=== PATIENT | male | born 1940 | race Caucasian/White ===

== ENCOUNTER 2017-08-11 05:28 | Day surgery (SDC) | payer OTHER ==
[~2017-08-11] VITALS: Ht 180.3 cm; Wt 71.7 kg
--- NOTE | ~2017-08-11 | O ---
[facility] [place] [address] OPERATIVE REPORT Name: KARLENE MOSS Room #: 150-6 [facility]..#: [id number] Admission: 08/11/17 Attend Phys: Gilberto Gustafson MD Discharge: Date of : 40 Report #: [id number] THIS REPORT FOR: //name// CC: Soy Gustafson DATE OF SERVICE: 08/11/[address] Gilberto Gustafson and Dr. Soy Reyes at [facility]. PREOPERATIVE DIAGNOSIS: Left inguinal hernia. POSTOPERATIVE DIAGNOSES: Left inguinal hernia with a left cord lipoma. PROCEDURE: Left inguinal hernia repair with Prolene hernia system mesh and excision of left cord lipoma. SURGEON: Gilberto Gustafson M.D. ANESTHESIA: Local IV sedation. DESCRIPTION OF PROCEDURE: The patient was brought to the operating room and placed on operative table in the supine position. Sequential compression devices were in place for DVT prophylaxis. There was no indication for preoperative antibiotics. The patient underwent IV sedation, was prepped and draped in a sterile fashion. Skin and subcutaneous tissue were then infiltrated with 0.5% Marcaine and 1% Xylocaine in a 1:1 mixture. Left inguinal skin incision was then performed using a #10 scalpel blade. Hemostasis obtained using electrocautery as well as clamps and 2-0 chromic ties. Dissection was carried down through the subcutaneous tissue to the external oblique fascia, which was then incised with a knife and opened up with a Metzenbaum scissors. The ilioinguinal nerve was identified, dissected free and preserved. Cord was then elevated up and held in place with a [place]oy drain. Cremasteric muscle fibers were then split in the direction of their fibers using clamp and electrocautery. The cord lipoma was identified, dissected free, clamped, excised and tied with a 2-0 chromic tie and sent as specimen to pathology. There was a small indirect inguinal hernia sac that was identified, dissected free and reduced back through the internal ring. There was a moderate sized direct inguinal hernia defect. This was dissected free and incised and opened just above the level of the floor and reduced back into the preperitoneal space. An extended Prolene hernia system mesh was then inserted through the floor and the underlay patch was then deployed in the preperitoneal space. The floor was then tightened around the connector using running 2-0 Prolene two layer shouldice repair. The overlay patch was then deployed into the inguinal canal [address] [address] OPERATIVE REPORT Name: KARLENE MOSS Room #: 150-6 [facility]#: [id number] Admission: 08/11/17 Attend Phys: Gilberto Gustafson MD Discharge: Date of : 40 Report #: [id number] and secured at the pubic tubercle with the same running 2-0 Prolene suture. The mesh was then secured superiorly and at the connector using simple interrupted 2-0 Vicryl suture. The mesh was split, wrapped around the cord, secured to the inguinal ligament with simple interrupted 2-0 Vicryl suture. The cord and ilioinguinal nerve were then returned to the canal intact. The external oblique fascia was then closed using running 2-0 Vicryl suture. Mary Jo fascia was then reapproximated using 3 simple interrupted 2-0 chromic sutures and the skin then closed with a running 4-0 subcuticular Vicryl stitch. The wound was then dressed with Mastisol, 1/2-inch Steri-Strips cut in half, Telfa, 4 x 4 gauze, sponge and tape. The patient was then taken to the recovery room awake, alert and in good condition. Estimated blood loss was less than 10 mL and the patient tolerated the procedure well. All sponge, lap and instrument counts were correct x 2. <ELECTRONICALLY SIGNED> By: Gilberto Gustafson MD 08/11/17 1615 1454 1507 Gilberto Gustafson MD /nt
--- NOTE | ~2017-08-11 | S ---
[facility] [place] [address] SURGICAL PATH RPT PROCEDURE Name: KARLENE ADORNO Room #: [place] [facility] [place].R.#: [id number] Admission: 08/11/17 Date of : 40 Discharge: 08/11/17 Report #: [id number] Path Case #: [id number] PATHOLOGY REPORT COLLECTION DATE: 08/11/2017 RECEIVED DATE: 08/11/2017 SUBMITTING PHYS: Dr. Gilberto Gustafson OTHER PHYS: Dr. Soy Reyes SPECIMEN(S) RECEIVED: A.Left cord lipoma * * * * * * * * * * * * FINAL DIAGNOSIS: Mature adipose tissue, left cord lipoma, excision: - Compatible with a lipoma. (IUV:pit; 08/13/2017) PATHOLOGIST: Adriane Burnham M.D. REPORT ELECTRONICALLY SIGNED BY: Adriane Burnham M.D. DATE/TIME: 08/13/2017 13:17 * * * * * * * * * * * * GROSS PATHOLOGY: Received in formalin labeled "Karlene Adorno, left cord lipoma," is a segment of lobulated fibroadipose tissue measuring 6.2 x 1.6 x 0.9 cm in maximum dimensions. Sectioning reveals homogeneous, bright yellow cut surfaces. Abseiling Instructor tissue is submitted in cassette A1. (CAA; 08/12/2017) CLINICAL HISTORY: Left inguinal hernia INITIAL CPT CODE(S): A; 74133 Professional services performed by [facility] at [facility] [address], [place] [address] Technical services performed by [facility] at [address] [place] [address], [address], [place] [address]. [facility] [address] [place] [address] SURGICAL PATH RPT PROCEDURE Name: KARLENE ADORNO Room #: [place] [facility] [place]emio#: [id number] Admission: 08/11/17 Date of : 40 Discharge: 08/11/17 Report #: [id number] Path Case #: [id number] [address] PHONE: [phone] DIRECTOR: Arnold Chinchilla M.D. * * * END OF REPORT * * *
[~2017-08-11 05:28] MED LIST: ASPIR 8181 MG PO; CALCIUM + D SO1 EACH PO; FLOMAX0.4 MG PO; MULTI VITAMIN1 EACH PO; OMEPRAZOLE40 MG PO; OXYBUTYNIN 5 MG5 M2 PO; PROSCAR 5MG TABL5 MG PO; TYLENOL325 MG PO; VENTOLIN HFA 1818 GM INH; VITAMIN B12 PO; VITAMIN D32000 UNIT PO
[2017-08-11 11:50] VITALS: BP 140/73
[2017-08-11] MEDS ORDERED: PERCOCET PO (14:58)
[2017-08-11 15:05] VITALS: BP 140/73
== END 2017-08-11 15:30 | disposition home or self-care (01) ==
LOC: TBA 05:28 → OR 05:28
DX: K40.90 Unilateral inguinal hernia, without obstruction or gangrene, not specified as recurrent (principal); D17.6 Benign lipomatous neoplasm of spermatic cord; J43.9 Emphysema, unspecified; K21.9 Gastro-esophageal reflux disease without esophagitis; F17.210 Nicotine dependence, cigarettes, uncomplicated; Z88.0 Allergy status to penicillin; Z88.8 Allergy status to other drugs, medicaments and biological substances; Z79.899 Other long term (current) drug therapy; Z79.82 Long term (current) use of aspirin; Z90.49 Acquired absence of other specified parts of digestive tract; Z98.890 Other specified postprocedural states; Z79.891 Long term (current) use of opiate analgesic
CPT/HCPCS: 50010; 50101; 54111; 56524; 56525; 56526; 56528; 62110; 62850; 70005

== ENCOUNTER 2017-08-15 07:26 | Emergency (ER) | payer OTHER ==
[~2017-08-15] VITALS: Ht 180.3 cm; Wt 71.7 kg
[~2017-08-15 07:26] MED LIST changes: +PERCOCET PO
[2017-08-15 08:05] LABS: ABSOLUTE NEUTROPHILS 8.7 thou/uL (1.4-8.2); BASOPHILS 0.6 % (0.0-2.0); HEMATOCRIT 42.7 % (42.0-52.0); HEMOGLOBIN 14.4 gm/dL (14.0-18.0); LYMPHOCYTES 16.5 % (24.0-44.0); MCH 30.6 pg (26.0-34.0); MCHC 33.8 g/dL (28.0-37.0); MCV 90.6 fL (80.0-100.0); MONOCYTES 6.3 % (1.0-8.0); PLATELET COUNT 182 thou/uL (150-400); POLYS 72.6 % (36.0-66.0); RBC 4.72 mil/uL (4.50-6.00); RDW 14.2 % (10.5-14.5)
[2017-08-15 08:13] LABS: CALCIUM 9.3 mg/dL (8.5-10.1); CREATININE 1.2 mg/dL (0.7-1.3); POTASSIUM 3.7 mmol/L (3.5-5.1)
[2017-08-15 08:19] LABS: ALBUMIN 3.4 g/dL (3.4-5.0); DIRECT BILIRUBIN 0.2 mg/dL (<0.1-0.3); TOTAL BILIRUBIN 0.8 mg/dL (<0.1-1.0)
[2017-08-15] MEDS ORDERED: NORCO 5-325 TA1 EACH PO (09:36)
== END 2017-08-15 10:00 | disposition home or self-care (01) ==
LOC: ER 07:26
PROVIDERS: Emergency Medicine
DX: G89.18 Other acute postprocedural pain (principal); N50.812 Left testicular pain; J44.9 Chronic obstructive pulmonary disease, unspecified; K21.9 Gastro-esophageal reflux disease without esophagitis; N40.0 Benign prostatic hyperplasia without lower urinary tract symptoms; Z90.49 Acquired absence of other specified parts of digestive tract; Z98.890 Other specified postprocedural states; Z88.0 Allergy status to penicillin; Z88.5 Allergy status to narcotic agent

== ENCOUNTER 2019-04-02 11:02 | Inpatient (IN) | payer OTHER, MEDICARE ==
[~2019-04-02] VITALS: Ht 180.3 cm; Wt 64.0 kg
[~2019-04-02 11:02] MED LIST changes: +NORCO 5-325 TA1 EACH PO; -OMEPRAZOLE40 MG PO
[2019-04-02 11:03] VITALS: BP 143/82
[2019-04-02 11:52] LABS: ABSOLUTE NEUTROPHILS 5.9 thou/uL (1.4-8.2); BASOPHILS 0.7 % (0.0-2.0); EOSINOPHILS 14.8 % (0.0-3.0); HEMOGLOBIN 14.9 gm/dL (14.0-18.0); LYMPHOCYTES 22.2 % (24.0-44.0); MCH 32.3 pg (26.0-34.0); MCV 95.2 fL (80.0-100.0); MONOCYTES 4.3 % (1.0-8.0); PLATELET COUNT 197 thou/uL (150-400); RBC 4.62 mil/uL (4.50-6.00); RDW 13.9 % (10.5-14.5); WBC 10.1 thou/uL (4.0-11.0)
[2019-04-02 11:54] LABS: ANION GAP 12 mmol/L (7-16); BUN 22 mg/dL (7-18); CALCIUM 9.5 mg/dL (8.5-10.1); CHLORIDE 104 mmol/L (98-107); CO2 25 mmol/L (21-32); GLUCOSE 132 mg/dL (74-106); POTASSIUM 3.8 mmol/L (3.5-5.1); SODIUM 141 mmol/L (136-145)
[2019-04-02 12:04] LABS: ALBUMIN 4.3 g/dL (3.4-5.0); SGOT 17 U/L (15-37); SGPT 19 U/L (30-65); TOTAL BILIRUBIN 0.6 mg/dL (<0.1-1.0); TROPONIN-I <0.06 ng/mL (<0.06)
--- NOTE | 2019-04-02 14:29 | NUR ---
PTS FAMILY REQUEST TYLENOL THEY ASKED FOR HOURS AGO. PTS FAMILY REQUEST SOFT FOOD FOR HIM TO EAT
[2019-04-02 15:39] VITALS: BP 144/68
[2019-04-02 16:02] VITALS: BP 136/68
[2019-04-02 16:23] VITALS: BP 124/62
--- NOTE | 2019-04-02 18:21 | NUR ---
pt adnitted from ER for SOB, pt is A&OX3, pt is on o2 2L/MIN/NC, PT's vs and o2sat are stable, pt's family stay at pt's bedside, pt denies pain and sob at this time.
[2019-04-02 19:58] VITALS: BP 116/55
--- NOTE | 2019-04-02 22:49 | NUR ---
PT RESTING IN BED VISITING WITH FAMILY UPON ARRIVAL TO SHIFT. PT 02 PER NC 2L, LUNGS WHEEZES. PT REQUESTED PRN TYLENOL FOR NECK DISCOMFORT, HERNIATED DISC AND SLEEPING PILL, BOTH PROVIDED. PT ALTERNATING ICE AND KPAD TO HIS NECK, CONTINUED FROM DAY SHIFT. PT VERBALIZED UNDERSTANDING TO CALL FOR ASSIST WITH AMBULATION. PT REQUESTED PRN RT TREATMENTS AND ORDER OBTAINED AND RT UPDATED. LOVENOX, DECLINED SCDS. CHEERFUL, SMILING.
[2019-04-02 23:42] VITALS: BP 113/67
[2019-04-03 04:40] VITALS: BP 138/80
--- NOTE | 2019-04-03 05:11 | NUR ---
PT REPORTED HE HAS BEEN AWAKE ALL NIGHT EVEN AFTER TAKING SLEEPING PILL.
[2019-04-03 07:48] VITALS: BP 121/86
--- NOTE | 2019-04-03 08:11 | EKG ---
[address] [address] ELECTROCARDIOGRAM REPORT Name: ISAKARLENE Alvarez Room #: 353-P ADM IN M.R.#: [id number] Admission: 04/02/19 Attend Phys: Triston Fine Discharge: Date of : 40 Report #: [id number] THIS REPORT FOR: //name// [facility] ED Test Date: 2019-04-02 Test Time: 11:03:34 Pat Name: KARLENE MOSS Department: Room: 353 P Gender: M Vitamin Manager: SAÚL : 1940 Requested By: Triston Fine Order Number: [id number] MD: Jesus Michaud Measurements Intervals [place] Rate: 102 P: 71 LA: 127 QRS: 55 QRSD: 92 T: 87 QT: 353 QTc: 460 Interpretive Statements Sinus tachycardia Ventricular premature complex Aberrant conduction of SV complex(es) Nonspecific repol abnormality, diffuse leads Baseline wander in lead(s) V1,V3 No previous ECG available for comparison Electronically Signed On 04-03-2019 8:11:42 AUTOMOBILE OR TRUCK RENTAL DISPATCHER by Jesus Michaud [email or web address] <ELECTRONICALLY SIGNED> By: Jesus Michaud MD 04/03/19 0811 1103 1103 Jesus Michaud MD /EPI
[2019-04-03] MEDS ORDERED: OMEPRAZOLE40 MG PO (09:30)
--- NOTE | 2019-04-03 10:05 | NUR ---
assessment: CM REVIEWED CHART AND MET WITH PATIENT AT THE BEDSIDE. PT IS ALERT AND ORIENTED X4. PT WAS ADMITTED WITH COPD. PT REPORTS HE LIVES IN A HOUSE WITH HIS . PT REPORTS HE HAS NO STEPS TO ENTER AND HAS A RAMP AND NO STEPS ONCE INSIDE. PT REPORTS THAT HE AMBULATES INDEPENDENTLY AND IS INDEPENDENT WITH ADLS. PT REPORTS HAVING A SHOWER CHAIR. PT STATES THAT HE HAS NOT HAD HH IN THE PAST NOR BEEN TO A SNF. PT STATES THAT HE DOES NOT WEAR OXYGEN AT HOME BUT IS CURRENTLY ON OXYGEN HERE. CM DISCUSSED ROLE. PT DOES NOT ANTICIPATE HAVING ANY NEEDS AT DISCHARGE. PT/OT EVALS ARE CURRENTLY PENDING. CM WILL CONTINUE TO FOLLOW TO ASSIST NEEDED.
--- NOTE | 2019-04-03 11:30 | NUR ---
I have reviewed the documentation by ELMIRA CANELA from 04/03/19 to 04/03/19 and I concur with it. CECI RANGEL
[2019-04-03 16:05] VITALS: BP 133/71
--- NOTE | 2019-04-03 18:44 | NUR ---
PTis A&OX3, pt is off o2 today, pt's vs are stable, pt is continuing iv ABX, pt can get up t walk in hallway, pt denies SOB BY THIS TIME.
[2019-04-03 19:48] VITALS: BP 146/68
[2019-04-04 04:32] VITALS: BP 127/60
--- NOTE | 2019-04-04 05:53 | NUR ---
PT COMPLAINED THAT HE DID NOT SLEEP PREVIOUS NIGHT. PRN AMBIEN GIVEN AND PT HAS RESTED COMFORTABLY ALL EVENING. VSS, AND TELEMETRY SHOWS SR/ST WITH BBB PRESENT VARIOUS TIMES. RESTARTED PT PO GERD MEDICATION. PT UP AD AMANDO, BUT IS VERY IMPULSIVE WITH HIS ACTIONS AND MOVEMENTS. PT HAS NO OTHER COMPLAINTS. HOURLY ROUNDING.
[2019-04-04 07:48] VITALS: BP 94/69
[2019-04-04 10:01] LABS: HEMATOCRIT 38.1 % (42.0-52.0); MCH 31.4 pg (26.0-34.0); MCV 95.2 fL (80.0-100.0); RDW 13.9 % (10.5-14.5); WBC 18.5 thou/uL (4.0-11.0)
[2019-04-04 10:06] LABS: HEMOGLOBIN 12.6 gm/dL (14.0-18.0)
[2019-04-04 10:28] VITALS: BP 149/69
--- NOTE | 2019-04-04 12:45 | NUR ---
on-going assessment: CM REVIEWED CHART AND SPOKE WITH ATTENDING. PT IS HYPOTENSIVE TODAY AND NOT STABLE FOR DISCHARGE. CM WILL CONTINUE TO FOLLOW PLANS ARE FOR PATIENT TO RETURN HOME ONCE MEDICALLY STABLE.
[2019-04-04 13:06] VITALS: BP 135/63
[2019-04-04 15:37] VITALS: BP 118/65
--- NOTE | 2019-04-04 16:14 | NUR ---
pt is A&OX3, but pt fell weakness and dizziness at this morning , new order NS 500ML IV bolus starts at 1017am, and pt stays at bed, after then , pt fell better, pt is on room air, pt's vs and o2sat are stable, pt denies SOB and dizziness at this time.
[2019-04-04 19:36] VITALS: BP 146/70
[2019-04-05 03:53] VITALS: BP 150/85
--- NOTE | 2019-04-05 07:23 | NUR ---
ASSUMED CARE AT 1900, ASSESSMENT COMPLETED. PT REPORTS IMPROVED BREATHING, ABLE TO WALK AROUND HIS ROOM WITH MINIMAL SOB, BUT STATES HE STILL GETS TIRED WITH EXTENDED ACTIVITY. LUNGS COARSE BUT CLEAR, SATTING WELL ON RA. REPORTS MODERATE, CHRONIC NECK PAIN; STATED THE LIDOCAINE PATCH DURING THE DAY HELPED; GAVE TYLENOL TWICE OVERNIGHT. PT SR 80-90 OVERNIGHT, BUT DID BECOME TACHY INTO THE 140'S WHILE MOVING AROUND ROOM TIDYING UP; AFTER HAVING PT SIT BACK DOWN HE RETURNED TO A REGULAR RATE. NO C/O WEAKNESS, DIZZINESS, OR HYPOTENSION OVERNIGHT. NO OTHER CONCERNS, SHIFT REPORT GIVEN AT 0700.
[2019-04-05 07:54] VITALS: BP 144/60
--- NOTE | 2019-04-05 08:33 | EKG ---
[address] [address] ELECTROCARDIOGRAM REPORT Name: KARLENE MOSS Room #: 353- ADM IN M.R.#: [id number] Admission: 04/02/19 Attend Phys: Triston Fine Discharge: Date of : 40 Report #: [id number] THIS REPORT FOR: //name// [facility] Test Date: 2019-04-04 Test Time: 09:58:51 Pat Name: KARLENE MOSS Department: Room: 353 Gender: M Stopper Grinder: CHELSY : 1940 Requested By: Triston Fine Order Number: [id number] MD: Jesus Michaud Measurements Intervals [place] Rate: 86 P: 62 NV: 125 QRS: -15 QRSD: 101 T: 50 QT: 397 QTc: 475 Interpretive Statements Sinus rhythm Compared to ECG 04/02/2019 11:03:34 Sinus tachycardia no longer present Early repolarization no longer present Electronically Signed On 04-05-2019 8:33:03 ATMOSPHERIC TECHNICIAN by Jesus Michaud [email or web address] <ELECTRONICALLY SIGNED> By: Jesus Michaud MD 04/05/19 0833 7 Jesus Michaud MD /RACHELE
[2019-04-05] MEDS ORDERED: LEVAQUIN 500 M500 M2 PO (09:38)
[2019-04-05] MEDS ORDERED: RAYOS5 MG PO (09:43)
--- NOTE | 2019-04-05 13:48 | NUR ---
pt is A&OX3, pt's coughing and sob have improved, pt denies dizziness at this time, pt gets up to walk at her room, pt's vs and o2sat are stable, RN has received order , pt will D/C to home soon, pt 's care plan goals have meeting at this time.
[2019-04-05 14:23] VITALS: BP 144/60
--- NOTE | 2019-04-05 16:12 | NUR ---
pt was d/c to home about 1430pm ,RN has giving D/C teaching, pt understands well,pt's diamond picker pt to home.
== END 2019-04-05 14:38 | disposition home or self-care (01) | DRG 871 ==
LOC: ER 11:02 → 3W 14:01 → EROBS 14:01 → 3W 15:58 → ENTRNSPT 04-05 14:28 → EDTRNSPTSTS 04-05 14:31 → 3W 04-05 14:38
PROVIDERS: Emergency Medicine; ADMIT Hospitalist
DX: A41.9 Sepsis, unspecified organism (principal); J18.9 Pneumonia, unspecified organism; J96.00 Acute respiratory failure, unspecified whether with hypoxia or hypercapnia; J44.1 Chronic obstructive pulmonary disease with (acute) exacerbation; J44.0 Chronic obstructive pulmonary disease with (acute) lower respiratory infection; K21.9 Gastro-esophageal reflux disease without esophagitis; I10 Essential (primary) hypertension; N40.0 Benign prostatic hyperplasia without lower urinary tract symptoms; E53.8 Deficiency of other specified B group vitamins; M54.5 Low back pain; I95.9 Hypotension, unspecified; Z88.5 Allergy status to narcotic agent; Z88.0 Allergy status to penicillin; Z90.49 Acquired absence of other specified parts of digestive tract; Z79.51 Long term (current) use of inhaled steroids; Z79.82 Long term (current) use of aspirin; Z79.899 Other long term (current) drug therapy
CPT/HCPCS: 10879

== ENCOUNTER 2019-04-22 11:54 | Emergency (ER) | payer OTHER, MEDICARE ==
[~2019-04-22] VITALS: Ht 180.3 cm; Wt 70.8 kg
[~2019-04-22 11:54] MED LIST changes: +LEVAQUIN 500 M500 M2 PO; +OMEPRAZOLE40 MG PO; +RAYOS5 MG PO
[2019-04-22 13:31] LABS: ABSOLUTE NEUTROPHILS 4.4 thou/uL (1.4-8.2); BASOPHILS 0.9 % (0.0-2.0); EOSINOPHILS 15.2 % (0.0-3.0); HEMATOCRIT 39.7 % (42.0-52.0); LYMPHOCYTES 17.5 % (24.0-44.0); MCHC 32.9 g/dL (28.0-37.0); MCV 97.3 fL (80.0-100.0); MONOCYTES 5.3 % (1.0-8.0); PLATELET COUNT 169 thou/uL (150-400); POLYS 61.1 % (36.0-66.0); RBC 4.08 mil/uL (4.50-6.00); RDW 14.3 % (10.5-14.5); WBC 7.2 thou/uL (4.0-11.0)
[2019-04-22 14:15] LABS: ANION GAP 11 mmol/L (7-16); BUN 19 mg/dL (7-18); CALCIUM 8.6 mg/dL (8.5-10.1); CHLORIDE 101 mmol/L (98-107); CO2 23 mmol/L (21-32); GLUCOSE 123 mg/dL (74-106); POTASSIUM 4.4 mmol/L (3.5-5.1); SODIUM 135 mmol/L (136-145)
[2019-04-22 14:26] LABS: ALBUMIN 3.5 g/dL (3.4-5.0); SGOT 18 U/L (15-37); SGPT 31 U/L (30-65); TOTAL BILIRUBIN 0.5 mg/dL (<0.1-1.0); TOTAL PROTEIN 6.5 g/dL (6.4-8.2); TROPONIN-I <0.06 ng/mL (<0.06)
[2019-04-22] MEDS ORDERED: AZITHROMYC200 MG/52 PO (14:37)
[2019-04-22] MEDS ORDERED: PREDNISONE 20 M20 MG PO (14:37)
[2019-04-22 15:03] VITALS: BP 102/61
--- NOTE | 2019-04-24 16:05 | EKG ---
[address] [address] ELECTROCARDIOGRAM REPORT Name: ISAKARLENE Alvarez [id number] Admission: 04/22/19 Attend Phys: Discharge: 04/22/19 Date of : 40 Report #: [id number] THIS REPORT FOR: //name// [facility] ED Test Date: 2019-04-22 Test Time: 12:02:26 Pat Name: KARLENE MOSS Department: Room: Gender: Asphalt Paving Foreman: [facility] : 1940 Requested By: Juvencio Vazquez Order Number: [id number] MD: Jesus Michaud Measurements Intervals [place] Rate: 108 P: 62 SC: 121 QRS: 0 QRSD: 96 T: 77 QT: 341 QTc: 457 Interpretive Statements Sinus tachycardia Probable left atrial enlargement Abnormal R-wave progression, early transition Abnormal inferior Q waves Borderline ST depression, anterolateral leads Compared to ECG 04/04/2019 09:58:51 Electronically Signed On 04-24-2019 16:05:05 GOLF COURSE LABORER by Jesus Michaud [email or web address] <ELECTRONICALLY SIGNED> By: Jesus Michaud MD 04/24/19 1605 120 120 Jesus Michaud MD /EPI
== END 2019-04-22 15:09 | disposition home or self-care (01) ==
LOC: ER 11:54
PROVIDERS: Emergency Medicine
DX: J44.1 Chronic obstructive pulmonary disease with (acute) exacerbation (principal); K21.9 Gastro-esophageal reflux disease without esophagitis; F17.210 Nicotine dependence, cigarettes, uncomplicated; Z90.49 Acquired absence of other specified parts of digestive tract; Z98.890 Other specified postprocedural states; Z88.0 Allergy status to penicillin; Z88.5 Allergy status to narcotic agent

== ENCOUNTER 2019-05-08 02:22 | Inpatient (IN) | payer OTHER ==
[~2019-05-08] VITALS: Ht 172.7 cm; Wt 66.7 kg
[~2019-05-08 02:22] MED LIST changes: +AZITHROMYC200 MG/52 PO; +PREDNISONE 20 M20 MG PO
[2019-05-08 02:54] LABS: ABSOLUTE NEUTROPHILS 7.1 thou/uL (1.4-8.2); BASOPHILS 0.6 % (0.0-2.0); EOSINOPHILS 7.9 % (0.0-3.0); HEMATOCRIT 44.2 % (42.0-52.0); HEMOGLOBIN 14.8 gm/dL (14.0-18.0); LYMPHOCYTES 21.6 % (24.0-44.0); MCHC 33.4 g/dL (28.0-37.0); MCV 95.9 fL (80.0-100.0); MONOCYTES 5.9 % (1.0-8.0); PLATELET COUNT 184 thou/uL (150-400); RBC 4.61 mil/uL (4.50-6.00); RDW 13.6 % (10.5-14.5); WBC 11.2 thou/uL (4.0-11.0)
[2019-05-08 02:58] LABS: ANION GAP 8 mmol/L (7-16); BUN 21 mg/dL (7-18); CALCIUM 9.2 mg/dL (8.5-10.1); CHLORIDE 100 mmol/L (98-107); CO2 26 mmol/L (21-32); GLUCOSE 128 mg/dL (74-106); POTASSIUM 3.8 mmol/L (3.5-5.1); SODIUM 134 mmol/L (136-145)
[2019-05-08 03:08] LABS: MAGNESIUM 1.8 mg/dL (1.8-2.4); SGOT 13 U/L (15-37); SGPT 27 U/L (30-65); TOTAL BILIRUBIN 0.8 mg/dL (<0.1-1.0); TOTAL PROTEIN 7.6 g/dL (6.4-8.2); TROPONIN-I <0.06 ng/mL (<0.06)
[2019-05-08 03:14] LABS: D-DIMER 0.3 ug/mLFEU (0.19-0.50)
[2019-05-08 03:17] LABS: BE(vivo) -2.6 mmol/L (-2 to +3); HCO3 23.7 mmol/L (22.0-26.0); PCO2 VENOUS 46.7 mmHg (41.0-51.0); PO2 VENOUS 30.6 mmHg (35.0-45.0)
[2019-05-08 03:26] LABS: APTT 24.1 Seconds (24.5-32.8); PROTIME 10.1 Seconds (9.3-11.4)
[2019-05-08 08:54] VITALS: BP 129/78
--- NOTE | 2019-05-08 10:22 | EKG ---
[place] [address] [facility] [employer] [place] [address] ELECTROCARDIOGRAM REPORT Name: CYNDY MOSSANDRES Alvarez Room #: 170-1 ADM IN M.R.#: [id number] Admission: 05/08/19 Attend Phys: Gabriel Moralez MD Discharge: Date of : 40 Report #: [id number] THIS REPORT FOR: //name// [facility] ED Test Date: 2019-05-08 Test Time: 02:28:35 Pat Name: KARLENE MOSS Department: Room: 170 Gender: M Paid Search Marketing Strategist: CORY : 1940 Requested By: Darrell Kohler Order Number: [id number] MD: Juan Andrews Measurements Intervals [place] Rate: 114 P: 78 [place]: 130 QRS: -27 QRSD: 94 T: 96 QT: 339 QTc: 467 Interpretive Statements Sinus tachycardia Biatrial enlargement RSR' in V1 or V2, right VCD Possible inferior infarct, old Nonspecific ST segment abnormality Compared to ECG 04/22/2019 12:02:26 no significant change was found Electronically Signed On 05-08-2019 10:22:19 BIOPHARMACEUTICAL REP by Juan Andrews [email or web address] <ELECTRONICALLY SIGNED> By: Juan Andrews MD, [facility] 05/08/19 1022 Juan Andrews MD, [facility] /EPI
[2019-05-08 10:35] VITALS: BP 131/67
--- NOTE | 2019-05-08 11:04 | NUR ---
THE PT'S AVERY WAS CALLED AND ADVISED THAT THE PT WAS MOVED TO AN INPATIENT BED IN ROOM 444. AVERY EXPRESSED THANKS.
--- NOTE | 2019-05-08 12:07 | NUR ---
PT ADMITTED AT 1105. PT A&Ox4. ADMISSION COMPLEETE. PT ON 3L. PT IN ROOM RESTING. FLUIDS INFUSING. IV DC'D FROM AMBULANCE ON R. HAND. SCD PLACED. FALL PRECAUTIONS IN PLACE. BED IN LOW POSITION, BED ALARM IN PLACE. BED LOCKED
[2019-05-08 15:40] VITALS: BP 131/69
--- NOTE | 2019-05-08 16:51 | EKG ---
[address] [place] [address] ELECTROCARDIOGRAM REPORT Name: ISAKARLENE Room #: 444- ADM IN M.R.#: [id number] Admission: 05/08/19 Attend Phys: Gabriel Moralez MD Discharge: Date of : 40 Report #: [id number] THIS REPORT FOR: //name// [facility] Test Date: 2019-05-08 Test Time: 16:17:35 Pat Name: KARLENE MOSS Department: Room: 444 Gender: M Molecular Biology Professor: CRIS MCCONNELL : 1940 Requested By: Gabriel Moralez Order Number: [id number] MD: Juan Andrews Measurements Intervals [place] Rate: 113 P: 71 DC: 128 QRS: -34 QRSD: 100 T: 87 QT: 344 QTc: 472 Interpretive Statements Sinus tachycardia Inferoposterior infarct, old Baseline wander in lead(s) V6 Compared to ECG 05/08/2019 02:28:35 No significant change was found Electronically Signed On 05-08-2019 16:51:02 VAN DRIVER HELPER by Juan Andrews [email or web address] <ELECTRONICALLY SIGNED> By: Juan Andrews MD, [facility] 05/08/19 1651 1617 1617 Juan Andrews MD, [facility] /EPI
[2019-05-08 19:31] VITALS: BP 152/72
--- NOTE | 2019-05-08 23:34 | NUR ---
ASSUMED PATIENT CARE AT SHIFT CHANGE. ASSESSMENT CHARTED. MEDICATIONS GIVEN PER JUL. PATIENT VOICED PAIN AT 7/10 PRN TYLENOL GIVEN. UPON REASSESSMENT PAIN WAS AT 8/10, FENTANYL GIVEN WITH ASSIST FROM JESSICA. PATIENT IS ON 3L, O2 SATURATION WNL BUT WHEEZES ARE HEARD ON UPPER LOBES. PATIENT IS A&O AND PLEASANT. PATIENT USES URINAL. PATIENT IS SINUS TACHY. HEART RATE INCREASES WITH AMBULATION AND TRANSFER. NO OTHER NEEDS VOICED. PATIENT TO TRANSFER TO [facility] FOR TELEMETRY MONITORING. WILL CONITINUE TO MONITOR UNTIL TRANSFER
[2019-05-09 00:10] VITALS: BP 142/86
[2019-05-09 04:10] VITALS: BP 136/79
--- NOTE | 2019-05-09 06:36 | NUR ---
Transferred from around 2300. O2 at 3L/NC with O2 sat greater than 90% . Pt. gets very short of breath with minimal exertion. Denies any pain since arrival on the floor. SR-ST per tele. SCD's in place. Voiding per urinal. He stated he slept good for 5 hours. Will continue to monitor.
[2019-05-09 07:07] LABS: HEMATOCRIT 39.4 % (42.0-52.0); HEMOGLOBIN 12.9 gm/dL (14.0-18.0); MCH 31.7 pg (26.0-34.0); MCHC 32.6 g/dL (28.0-37.0); RBC 4.06 mil/uL (4.50-6.00); RDW 13.6 % (10.5-14.5)
[2019-05-09 07:17] LABS: CALCIUM 9.1 mg/dL (8.5-10.1); POTASSIUM 4.4 mmol/L (3.5-5.1)
[2019-05-09 07:32] VITALS: BP 126/70
[2019-05-09 15:21] VITALS: BP 126/70
--- NOTE | 2019-05-09 16:02 | NUR ---
INITIAL ASSESSMENT: SW reviewed chart and spoke with nursing and attending physician. Pt was admitted from home due to COPD/Hypoxia. Pt is on IV steroids. PT/OT ordered to evaluate pt for discharge needs. SW met with pt at bedside. Introduced role of SW. Pt is alert/orientated x 4. Pt reports he lives at home with his . Prior to admission, pt was independent with ADLs. Pt has a cane and walker at home if needed. No steps to navigate. Pt was not on O2 prior to admission. No hx of services or post-acute placement. Pt's PCP is Dr. Shelley Kohler. Plan is for pt to discharge home when medically stable.
[2019-05-09 16:45] VITALS: BP 150/66
[2019-05-09 19:22] VITALS: BP 140/73
[2019-05-10 03:27] VITALS: BP 134/60
--- NOTE | 2019-05-10 03:45 | NUR ---
Pt. slept fair during the night. RT titrated O2 off after shift change. Tolerating room air well with O2 sat in the low 90's. No respiratory distress. Mild neck pain which did not require pain med. Voiding per urinal. Making progress towards care plan goals.
[2019-05-10 04:40] VITALS: BP 160/86
[2019-05-10 07:27] VITALS: BP 140/62
--- NOTE | 2019-05-10 16:12 | NUR ---
SW reviewed chart and spoke with nursing and attending physician. Pt is progressing towards goals for discharge. Pt on IV steroids. Plan is for pt to return home when medically stable. AWILDA is following to assist as needed with discharge planning.
[2019-05-10 16:40] VITALS: BP 129/69
--- NOTE | 2019-05-10 16:57 | NUR ---
ASSUMED CARE OF PT AT 0700. PT AOX4 IN NO ACUTE DISTRESS. REMAINS TACHYCARDIC - HR 100-120's. PAIN CONTROLLED WITH TYLENOL. ANTICIPATE D/C WHEN HR MORE STABLE. NOW ON ROOM AIR.
[2019-05-10 19:32] VITALS: BP 134/73
--- NOTE | 2019-05-11 00:05 | NUR ---
PATIENT ASSESSED AND IS ALERT X 4. SKIN WARM AND DRY. RESP EVEN AND UNLABORED. ABDOMEN SOFT WITH GOOD BS. UP STAND-BY ASSIST TO BATHROOM. HAS A NAGGING COUGH NOTED. NO EDEMA NOTED TO LOWER EXTREMITIES. ON ROOM AIR. HAS CHRONIC AGUSTÍN IN NECK TYLENOL GIVEN AT 2106. SABOUT 2046 CO MPLAINED OF INDIGESTION. "IM BEEN OFF OF MY STOMACH MEDIATION FOR A FEW DAYS AND THIS IS ALWAYS HAPPENS" ZOFRAN GIVEN AND 7-UP. AFTER ABOUT 1 HOUR THE PAIN RESOLVED. PAIN WAS MIDSTERNAL. SKIN WAS WARM AND DRY. NO TELE CHANGES DURING THIS COMPLAINT. TELE- SHOWS ST. HR 120. LUNGS HAD SOME WHEEZING NOTED ON ASSESSMENT. CONTINUE TO OBSERVE FOR CHANGES. NO COMPLAINTS STATED NOW AT THIS TIME.
[2019-05-11 03:19] VITALS: BP 158/89
--- NOTE | 2019-05-11 04:05 | NUR ---
PATIENT REMAINS UNABLE TO HAVE BM. MIRALAX GIVEN ORDERED. NO FURTHER INDIGESTION STATED. IV SITE HEALTHY. CONT PLAN OF CARE. NECK PAIN RATED ABOUT A 5. PAIN MED GIVEN.
[2019-05-11 05:55] LABS: CALCIUM 8.8 mg/dL (8.5-10.1); CREATININE 0.9 mg/dL (0.7-1.3); POTASSIUM 4.4 mmol/L (3.5-5.1)
--- NOTE | 2019-05-11 06:16 | NUR ---
Patient still having touble voidimng has been voiding in urinal all night. say" It getting worst. It moore". has voided 700 cc all night.
--- NOTE | 2019-05-11 06:37 | NUR ---
Patient voids in urinal. Flomax requested early. Complaining of his penis burning.hr up in the 130-140 no chest pain. Just anxious because he don't think he voiding enough. Had 100 cc at 0600. hr comoing down now. Resting. hr now is 120 and 130's. will monitor.
--- NOTE | 2019-05-11 06:48 | NUR ---
Fentanyl given for penis pain. Still very apprehensive about not being able to void. Has voideds 850 this shift. cont to monitor
[2019-05-11 07:45] VITALS: BP 176/94
[2019-05-11 10:02] LABS: URINE BILIRUBIN NEGATIVE (Negative); URINE BLOOD 3+ (Negative); URINE CLARITY CLEAR; URINE COLOR YELLOW; URINE GLUCOSE-RANDOM* NEGATIVE (Negative); URINE KETONES NEGATIVE (Negative); URINE LEUKOCYTES NEGATIVE (Negative); URINE NITRITE NEGATIVE (Negative); URINE PROTEIN (DIPSTICK) NEGATIVE (Negative); URINE SPECIFIC GRAVITY 1.015 (1.005-1.035); URINE UROBILINOGEN 0.2 E.U./dl (0.2-1.0)
[2019-05-11 10:59] LABS: CASTS None Seen /LPF (None Seen); CRYSTALS None Seen /LPF (None Seen); SQUAMOUS None Seen /LPF (0-3); URINE RBC >20 Many /HPF (0-2)
[2019-05-11 11:00] LABS: BACTERIA 1-9 Few /HPF (None Seen); URINE WBC 0-5 Rare /HPF (0-5)
[2019-05-11 12:07] LABS: CALCIUM 8.9 mg/dL (8.5-10.1); POTASSIUM 4.4 mmol/L (3.5-5.1)
--- NOTE | 2019-05-11 15:01 | NUR ---
SW reviewed chart and spoke with nursing and attending physician. Pt is slowly progressing towards goals for discharge. Pt remains on IV steroids and IV abx. Pt is on continuous O2, and was not on O2 prior to admission. SW is following to assist as needed with discharge planning.
[2019-05-11 16:07] LABS: ABSOLUTE NEUTROPHILS 15.4 thou/uL (1.4-8.2); BASOPHILS 0.1 % (0.0-2.0); HEMATOCRIT 37.5 % (42.0-52.0); HEMOGLOBIN 12.3 gm/dL (14.0-18.0); LYMPHOCYTES 4.4 % (24.0-44.0); MCH 31.8 pg (26.0-34.0); MCHC 32.9 g/dL (28.0-37.0); MCV 96.8 fL (80.0-100.0); MONOCYTES 5.1 % (1.0-8.0); PLATELET COUNT 163 thou/uL (150-400); POLYS 90.4 % (36.0-66.0); RBC 3.88 mil/uL (4.50-6.00); RDW 13.7 % (10.5-14.5)
--- NOTE | 2019-05-11 16:17 | NUR ---
Assumed care approx. 0700 this AM. Upon arrival of shift, pt started complaining of severe bladder pain/fullness and retention. Dr. Moralez notified of problems. Orders to bladder scan and report amount; greater than 1L scanned. Dr. Moralez notified and orders were given to place mirza catheter. After mirza catheter was placed, approx. 1L of urine was obtained immediately. UA complete per orders. Pt had immediate relief of pressure and pain post mirza insertion. Orders given to titrate patient off of nasal cannula with goal O2 sat of >89%; Jovanny from RT notified of plan. Tylenol and hydrocodone given for continuous neck pain. Pt refusing to work with physical therapy due to neck pain and feeling "weak." PO metoprolol started this AM for persistent sinus tachycardia-HR has been controlled since mirza cath placement and metoprolol administration. Pt slowly progressing toward plan of care goals.
[2019-05-11 16:45] VITALS: BP 142/80
[2019-05-11 19:16] VITALS: BP 140/71
--- NOTE | 2019-05-12 05:21 | NUR ---
PATINET IS ALERT AND ORIENTED. PATIENT IS SBA TO UP AD AMANDO. PATIENT DENIES PAIN EXCEPT NECK DISCOMFORT. PATIENT HAS A MILLER IN PLACE. PATIENTS LBM WAS THE 6TH. PATIENT IS ON ROOM AIR AT HOME. PATIENT IS RESTING COMFORTABLY IN BED. WCM. PATIENT IS PROGRESSING TO GOALS
[2019-05-12 07:27] VITALS: BP 148/68
--- NOTE | 2019-05-12 11:18 | NUR ---
MIRALAX GIVEN THIS AM D/T PT REPORTED LAST BM WAS LAST WEDNESDAY 5DAYS AGO. PT JUST HAD A BM. ORDERED SUPPOSITORY CANCELLED
[2019-05-12] MEDS ORDERED: LOPRESSOR25 PO (12:28)
[2019-05-12] MEDS ORDERED: PREDNISONE 20 M20 M1 PO (12:28)
[2019-05-12] MEDS ORDERED: MIRALAX17 GM PO (12:28)
[2019-05-12] MEDS ORDERED: APAP W/CODEINE1 TA2 PO (12:28)
[2019-05-12] MEDS ORDERED: COMBIVENT INH (12:28)
[2019-05-12] MEDS ORDERED: N-ACETYL-L-CYS600 MG PO (12:28)
[2019-05-12] MEDS ORDERED: LEVAQUIN 500 M50012 PO (12:28)
[2019-05-12 14:15] VITALS: BP 148/68
--- NOTE | 2019-05-12 14:22 | NUR ---
DISCHARGE ORDERS COMPLETED. HOME HEALTH RECOMMENDED AND ORDERED. PATIENT REFERRAL, DISCHARGE/HOME HEALTH ORDERS AND DISCHARGE SUMMARY FAXED TO [facility] PER REQUEST. CALL PLACED TO [facility] TO NOTIFY. SPOKE WITH GRZEGORZ IN INTAKE. GRZEGORZ TO FACILITATE. UNIT SW AWARE.
--- NOTE | 2019-05-12 14:32 | NUR ---
DISCHARGE NOTE: SW reviewed chart and spoke with nursing and attending physician. Pt is medically stable for discharge home today. Orders written for HH services. SW met with pt at bedside to discuss discharge plan. Pt is aware and agreeable with plan. Options provided for HH agencies. No preference voiced. SW confirmed pt's home address and phone number. enterprise resource planner to fax referral to Derek for review. Pt will have transportation home. No additional SW needs identified at this time, but is available to assist should needs arise.
[2019-05-12 15:05] VITALS: BP 145/79
--- NOTE | 2019-05-12 17:27 | NUR ---
PT HAD DIFFICULTIES VOIDING AFTER MILLER DISCONTINUED EARLY IN THE SHIFT. PT VOIDED 60 CC IN THE AFTERNOON. BLADDER SCAN COMPLETED 400CC. PER PHYSICIAN ORDER REINSERT MILLER OF PVR >300CC AND PREPARE PT TO DISCHARGE WITH A MILLER CATHETER INCLUDING MILLER CARE EDUCATION. PT THEN VOIDED 120CC PVR 432CC. PT STATED HE DID NOT FEEL WELL TO DISCHARGE. PHYSICIAN NOTIFIED. PER PHYSICIAN SHE IS CANCEL DISCHARGE AND REASSESS THE PT IN THE MORNING. RE-INSERT MILLER TOWARDS THE END OF THE SHIFT IN BLADDER SCAN STILL >300CC. PT INFORMED ABOUT THIS
--- NOTE | 2019-05-12 17:36 | NUR ---
DISCHARGE CANCELLED AT THIS TIME
--- NOTE | 2019-05-12 18:55 | NUR ---
PT HAS NOT VOIDED SINCE LAST PVR WITH 400CC. MILLER REINSTERTED PER ORDERS
[2019-05-12 19:32] VITALS: BP 167/82
[2019-05-13 04:24] VITALS: BP 139/78
--- NOTE | 2019-05-13 06:27 | NUR ---
PATIENT IS ALERT AND ORIENTED. PENDING POSSIBLE DC TODAY. PATIENT HAS MILLER IN PLACE AWAITING ORDERS FOR MILLER REMOVEAL OR TO BE SENT HOME IN PLACE. PATIENTS PAIN IS CONTROLLED WITH PAIN MEDICATION. PATIENTS LBM WAS THE 10TH. PATIENT IS NSR ON TELE. PATIENT IS SBA. PATIENT IS RESTING COMFORTABLY IN BED. WCM.
[2019-05-13 07:07] VITALS: BP 145/80
[2019-05-13 15:19] VITALS: BP 131/79
--- NOTE | 2019-05-13 17:55 | NUR ---
PATIENT STATED HE FEELS MORE SICK TODAY AND WILL NOT BE ABLE TO GO HOME. STATES HE PREFERS TO GO TO A FACILITY. CASE MANAGEMENT AND AFTER TALKING TO PATIENT, [facility] CALLED FOR REFERRAL BUT THEY NEVER CALLED BACK. PATEINT IS WILLING AND PREFERS TO GO THERE AT [facility].
[2019-05-13 19:30] VITALS: BP 124/76
[2019-05-14 00:10] VITALS: BP 174/98
[2019-05-14 01:07] LABS: HEMATOCRIT 44.1 % (42.0-52.0); MCH 31.8 pg (26.0-34.0); MCHC 33.5 g/dL (28.0-37.0); MCV 95.2 fL (80.0-100.0); RBC 4.63 mil/uL (4.50-6.00); RDW 13.4 % (10.5-14.5); WBC 15.7 thou/uL (4.0-11.0)
[2019-05-14 01:14] LABS: CALCIUM 9.4 mg/dL (8.5-10.1); CREATININE 1.1 mg/dL (0.7-1.3); MAGNESIUM 1.9 mg/dL (1.8-2.4)
[2019-05-14 01:25] LABS: HEMOGLOBIN 14.8 gm/dL (14.0-18.0)
[2019-05-14 03:40] VITALS: BP 94/60
--- NOTE | 2019-05-14 04:19 | NUR ---
PATIENT IS ALERT AND ORIETED. PAITENT WAS PLACED ON 2LNC DUE TO SATS 87% ON ROOM AIR. PATIENT WAS GIVEN LASIX FOR ELEVATED BNP AND SOA AND CRACKELS IN LUNGS. PATIENTS PAIN IS TREATED WITH PAIN MEDICATION. PATIENT IS RESTING COMFORTABLY. WCM.
[2019-05-14 07:31] VITALS: BP 117/71
[2019-05-14 15:03] VITALS: BP 118/76
--- NOTE | 2019-05-14 17:39 | NUR ---
PT CONT TO IMPROVE THOUGH THE DAY. HE DOES NOT SEEM TO BE IN PAIN. RESPIRATIONS ARE EVEN AND UNLABORED AT THIS TIME. RESTARTED ON STERIODS TODAY DUE TO INCREASE WHEEZING. PT STATES HE FEELS MUCH BETTER. REFUSED TO GET OUT OF BED TO AMBULATES. STATES " I JUST CANT DO IT". WILL CONT WITH PLAN OF CARE.
[2019-05-14 19:24] VITALS: BP 113/60
[2019-05-15 03:53] VITALS: BP 123/63
--- NOTE | 2019-05-15 05:52 | NUR ---
PT MAKING PROGRESS TOWARDS GOALS. PT ON O2 AT 2L PER NC THROUGHOUT THE NIGHT. STATES THAT HE STILL GETS SLIGHTLY SOA WITH TALKING AND IF MOVING AROUND THE BED. STATES THAT HE HOPES TO GET INTO A LIVING SITUATION WITH HIS WHERE HE CAN HAVE MORE SUPPORT.
[2019-05-15 07:21] VITALS: BP 124/68
--- NOTE | 2019-05-15 09:59 | 2DMMODE ---
[facility] [employer] [place] [address] 2 D/M-MODE ECHOCARDIOGRAM Name: KARLENE MOSS Room #: 351-P ADM IN M.R.#: [id number] Admission: 05/08/19 Attend Phys: Dave Ba Discharge: Date of : 40 Report #: [id number] THIS REPORT FOR: //name// APPROVED REPORT Study performed: 05/15/2019 09:03:37 EXAM: Comprehensive 2D, Doppler, and color-flow Echocardiogram Patient Location: Echo lab Room #: [facility] Status: routine BSA: 1.79 HR: 77 bpm BP: 124/68 mmHg Rhythm: NSR Other Information Study Quality: Adequate Indications Tachycardia, CAD, short of breath, COPD exacerbation. 2D Dimensions RVDd: 29.27 mm IVSd: 10.27 (7-11mm) LVOT Diam: 22.32 (18-24mm) LVDd: 46.00 mm PWd: 8.99 (7-11mm) LVDs: 40.24 (25-40mm) Aortic Root: 35.08 mm Volumes Left Atrial Volume (Systole) Single Plane 4CH: 20.59 mL Single Plane 2CH: 39.35 mL LA ESV Index: 18.00 mL/m2 Aortic Valve AoV Peak Jude.: 0.77 m/s AO Peak Gr.: 2.36 mmHg LVOT Max P.68 mmHg LVOT Max V: 0.65 m/s NEHEMIAH Vmax: 3.30 cm2 Mitral Valve E/A Ratio: 0.6 MV Decel. Time: 244.26 ms MV E Max Jude.: 0.42 m/s [facility] [address] [place] [address] 2 D/M-MODE ECHOCARDIOGRAM Name: ISAKARLENE Room #: 351-P [facility] IN [facility]#: [id number] Admission: 05/08/19 Attend Phys: Dave Ba Discharge: Date of : 40 Report #: [id number] A Jude.: 0.69 m/s MV PHT: 70.84 ms IVRT: 119.95 ms Pulmonary Valve PV Peak Jude.: 0.58 m/s PV Peak Gr.: 1.33 mmHg Pulmonary Vein P Vein S: 0.45 m/s P Vein A: 0.27 m/s P Vein D: 0.23 m/s P Vein A Dur.: 129.2 msec P Vein S/D Ratio: 1.96 Tricuspid Valve TR Peak Jude.: 2.34 m/s RAP Estimate: 5.00 mmHg TR Peak Gr.: 22.00 mmHg PA Pressure: 27.00 mmHg Left Ventricle The left ventricle is normal size. There is normal LV segmental wall motion. There is normal left ventricular wall thickness. Left ventricular systolic function is low normal. LVEF is 50-55%. Mild diastolic dysfunction is present (impaired relaxation pattern). Right Ventricle The right ventricle is normal size. The right ventricular systolic function is normal. Atria The left atrium size is normal. Lipomatous hypertrophy of the septum The right atrium size is normal. Aortic Valve The aortic valve is normal in structure. No aortic regurgitation is present. There is no aortic valvular stenosis. Mitral Valve The mitral valve is normal in structure. There is no mitral valve regurgitation noted. No evidence of mitral valve stenosis. Tricuspid Valve The tricuspid valve is normal in structure. Trace tricuspid regurgitation. Estimated PAP is 25-30mmHg. Pulmonic Valve Pulmonic valve is not well visualized. [facility] [address] [place] [address] 2 D/M-MODE ECHOCARDIOGRAM Name: KARLENE MOSS Room #: 351-P [facility] IN .R.#: [id number] Admission: 05/08/19 Attend Phys: Dave Ba Discharge: Date of : 40 Report #: [id number] Great Vessels The aortic root is normal in size. Ascending aorta is not well visualized. IVC is normal in size and collapses >50% with inspiration. Pericardium There is no pericardial effusion. <Conclusion> Left ventricular systolic function is low normal. There is normal LV segmental wall motion. LVEF is 50-55%. Mild diastolic dysfunction The aortic valve is normal in structure. No aortic regurgitation or stenosis The mitral valve is normal in structure. No mitral valve regurgitation. Trace tricuspid regurgitation. Estimated pulmonary artery pressure of 25-30mmHg. There is no pericardial effusion. <ELECTRONICALLY SIGNED> By: Juan Andrews MD, FACC 05/15/19957 7 7 Juan Andrews MD, FACC /INF
--- NOTE | 2019-05-15 13:21 | NUR ---
AWILDA reviewed chart and spoke with nursing and attending physician. Pt was not discharged home over the weekend as anticipated. Pt states he needs to get stronger before going home. Referral or contact made to [facility] over the weekend per pt's request. [facility] does not accept pt's insurance. Pt is medically stable for discharge to post-acute care today pending insurance authorization. AWILDA met with pt at bedside to discuss discharge plan. Options for SNF provided, as [facility] is not in network. Pt wants to stay in [facility]. Requests referral to be sent to [facility] due to location. AWILDA made copy of pt's insuarance cards to fax to SNF. product planner to fax referral to [facility]. AWILDA notified [facility] liaison, who will come meet with pt. AWILDA left voice message for Karlie at [facility] ([phone]) to notify of SNF preference. Awaiting input from [facility] and [facility] at this time. AWILDA is following to assist as needed with discharge planning.
[2019-05-15 15:45] VITALS: BP 122/63
--- NOTE | 2019-05-15 16:48 | NUR ---
ASSUMED PATIENT CARE AT 0700. A/O X4. NO DISDRESS NOTED. AMBULEATED IN ROOM. PROGRESSING TOWARDS POC GOALS.
[2019-05-15 19:23] VITALS: BP 124/75
[2019-05-16 03:59] VITALS: BP 134/54
--- NOTE | 2019-05-16 04:30 | NUR ---
PT PROGRESSING TOWARDS POSSIBLE DC TODAY WITH INSURANCE APPROVAL. PT ONLY REQUEST WAS FOR MELATONIN AND TYLENOL VSS. TELE SHOWS SR. PT A/0X4, X1 ASSIST WITH WALKER. MILLER IN PLACE AND FALL PRECAUTIONS IN PLACE.
[2019-05-16 07:31] VITALS: BP 133/76
--- NOTE | 2019-05-16 13:25 | NUR ---
assumed care of pt at 0700. pt aox4 in no acute distress. breathing on room air. dyspnea w/ activity. gait weak but steady. up w/ walker and gait belt. voicing no complaints. anticipate d/c to [facility] for rehab. report given to nurse. anticipating transport at 1500.
--- NOTE | 2019-05-16 14:20 | NUR ---
DISCHARGE NOTE: SW reviewed chart and spoke with nursing and attending physician. Pt is medically stable for discharge to [facility]. Insurance authorization obtained. Wheelchair van scheduled for 1500 per facility's arrangements. SW met with pt at bedside to provide update. Pt is aware and in agreement with plan. Pt states he will notify his and family. Chart copied. Nursing to call report. No additional SW needs identified at this time, but is available to assist should needs arise.
[2019-05-16] MEDS ORDERED: IPRAT-ALBUT 0.5-3 ML INH (14:40)
[2019-05-16] MEDS ORDERED: COMBIVENT INH (14:40)
== END 2019-05-16 15:13 | DRG 189 ==
LOC: ER 02:22 → EROBS 04:02 → 4S 04:02 → 3W 04:02 → 4S 10:56 → 3W 05-09 00:21
PROVIDERS: Emergency Medicine; Nurse Practitioner Acute Care; Nurse Practitioner Family; ADMIT Hospitalist
DX: J96.21 Acute and chronic respiratory failure with hypoxia (principal); E43 Unspecified severe protein-calorie malnutrition; J44.1 Chronic obstructive pulmonary disease with (acute) exacerbation; J44.0 Chronic obstructive pulmonary disease with (acute) lower respiratory infection; R35.0 Frequency of micturition; J20.9 Acute bronchitis, unspecified; K58.9 Irritable bowel syndrome, unspecified; K21.9 Gastro-esophageal reflux disease without esophagitis; N40.0 Benign prostatic hyperplasia without lower urinary tract symptoms; F17.210 Nicotine dependence, cigarettes, uncomplicated; R63.4 Abnormal weight loss; R33.9 Retention of urine, unspecified; X58.XXXA Exposure to other specified factors, initial encounter; T17.990A Other foreign object in respiratory tract, part unspecified in causing asphyxiation, initial encounter; E78.00 Pure hypercholesterolemia, unspecified; K40.90 Unilateral inguinal hernia, without obstruction or gangrene, not specified as recurrent; D72.829 Elevated white blood cell count, unspecified; R00.0 Tachycardia, unspecified; Z68.22 Body mass index [BMI] 22.0-22.9, adult; Z87.01 Personal history of pneumonia (recurrent); Z90.89 Acquired absence of other organs; Z90.49 Acquired absence of other specified parts of digestive tract; Z88.5 Allergy status to narcotic agent; Z88.0 Allergy status to penicillin; Z79.899 Other long term (current) drug therapy; Z79.82 Long term (current) use of aspirin; Z98.1 Arthrodesis status; Y93.89 Activity, other specified; Y92.89 Other specified places as the place of occurrence of the external cause; Y99.8 Other external cause status
CPT/HCPCS: 10195; 10879

== ENCOUNTER → 2019-07-31 | Outpatient (CLI) | payer OTHER ==
[~2019-07-31] MED LIST changes: +APAP W/CODEINE1 TA2 PO; +COMBIVENT INH; +IPRAT-ALBUT 0.5-3 ML INH; +LEVAQUIN 500 M50012 PO; +LOPRESSOR25 PO; +MIRALAX17 GM PO; +N-ACETYL-L-CYS600 MG PO; +PREDNISONE 20 M20 M1 PO
== END ==
LOC: SJCVCIMAG 09:24
DX: I25.89 Other forms of chronic ischemic heart disease (principal); I77.811 Abdominal aortic ectasia; I47.1 Supraventricular tachycardia; I48.91 Unspecified atrial fibrillation; I10 Essential (primary) hypertension; E78.5 Hyperlipidemia, unspecified; J44.9 Chronic obstructive pulmonary disease, unspecified; Z79.899 Other long term (current) drug therapy; Z87.891 Personal history of nicotine dependence

== ENCOUNTER 2019-08-14 15:57 | Inpatient (IN) | payer OTHER ==
[~2019-08-14] VITALS: Ht 180.3 cm; Wt 68.4 kg
--- NOTE | ~2019-08-14 | HC ---
[facility] [place] [address] CONSULTATION Name: KARLENE MOSS Room #: 212-P ADM IN M.R.#: [id number] Admission: 08/14/19 Attend Phys: Triston Fine Discharge: Date of : 40 Report #: [id number] THIS REPORT FOR: cc: Shelley Gaona MD, Cora A. MD Forman, John M. MD ~ CC: Shelley Fine DATE OF SERVICE: 08/17/2019 HISTORY OF PRESENT ILLNESS: We were asked by Dr. Watson to see the patient. The patient is a 79-year-old with coronary artery disease. The patient states that he has been having progressive fatigue over the last year or so that has become worse just prior to admission. The patient states for the last few weeks, he has been feeling fatigued and short of breath with low levels of exertion. The patient began to develop substernal chest pain on the afternoon of the and that led to his admission, the patient was found to be in SVT. He was given a dose of adenosine in the ER and converted to sinus rhythm. Other medical problems include history of chronic obstructive pulmonary disease. The patient denies chronic disease such as hypertension and diabetes. ALLERGIES: PENICILLIN CAUSES HIVES. MORPHINE CAUSES SHORTNESS OF BREATH. On admission chest x-ray showed patchy infiltrate in the left lower lobe consistent with pneumonia. MEDICATIONS AT HOME: Includes vitamins, aspirin, finasteride, tamsulosin, albuterol, acetaminophen. SOCIAL HISTORY: The patient is a former smoker who quit for good in April. He states he started to cut down several years ago. Alcohol use in the past. The patient lives in [facility]. REVIEW OF SYSTEMS: CONSTITUTIONAL: Denies fever or chills. EYES: Denies change in vision. HEENT: Denies headache, hearing problems, ear discharge. RESPIRATORY: As mentioned shortness of breath. Denies sputum production. CARDIAC: Fatigue with exertion, chest pain leading to admission. GASTROINTESTINAL: Denies nausea, vomiting. Does have reflux and was treated for it. GENITOURINARY: Takes medication for prostatism. MUSCULOSKELETAL: Denies bone or joint pain. SKIN: Denies rash or infection. [facility] [address] [place] [address] CONSULTATION Name: KARLENE MOSS Room #: 212-P [facility] IN [facility].#: [id number] Admission: 08/14/19 Attend Phys: Triston Fine Discharge: Date of : 40 Report #: [id number] NEUROLOGIC: Denies motor or sensory dysfunction. ENDOCRINE: Denies goiter or palpitations. PHYSICAL EXAMINATION: VITAL SIGNS: Temperature 36.3, heart rate 85, respiratory rate 17, blood pressure 132/75, O2 sat 94 on room air. HEENT: No scleral icterus, no arcus. NECK: No mass, no bruit. CHEST: Clear to auscultation. HEART: Rhythm regular. ABDOMEN: Soft. EXTREMITIES: No clubbing, cyanosis or edema. No obvious saphenous vein problems, 2+ dorsalis pedis pulses bilaterally. MUSCULOSKELETAL: No bone or joint asymmetry or deformity. SKIN: No rash or infection. NEUROLOGIC: No motor or sensory dysfunction. PSYCHIATRIC: Pleasant fellow, shows insight into problem. IMPRESSION: The patient has important coronary artery disease as demonstrated on cardiac catheterization. The patient has an ostial left main and 80% mid right coronary stenoses. Left ventricular function is satisfactory. I have recommended coronary bypass surgery to treat this. Risks and details were discussed. Options and alternatives were reviewed. The patient understands all of this and wishes to proceed. I suspect we will allow the patient to recover from his pulmonary problem and then bring him back for a semi-elective surgery. The patient understands all of this and agrees. Discussed the case with Dr. Watson. Thank you for the consult. By: [id number] [id number] Jovanny Velarde MD /nt
[2019-08-14 16:03] VITALS: BP 133/86; BP 142/81
[2019-08-14 16:27] LABS: HEMATOCRIT 40.5 % (42.0-52.0); HEMOGLOBIN 13.9 gm/dL (14.0-18.0); MCH 33.1 pg (26.0-34.0); MCHC 34.3 g/dL (28.0-37.0); MCV 96.5 fL (80.0-100.0); PLATELET COUNT 191 thou/uL (150-400); RBC 4.19 mil/uL (4.50-6.00); RDW 13.8 % (10.5-14.5); WBC 9.3 thou/uL (4.0-11.0)
[2019-08-14 16:39] LABS: ANION GAP 12 mmol/L (7-16); BUN 26 mg/dL (7-18); CALCIUM 9.2 mg/dL (8.5-10.1); CHLORIDE 104 mmol/L (98-107); CO2 21 mmol/L (21-32); CREATININE 1.2 mg/dL (0.7-1.3); GLUCOSE 122 mg/dL (74-106); POTASSIUM 3.9 mmol/L (3.5-5.1); SODIUM 137 mmol/L (136-145)
[2019-08-14 16:49] LABS: ALBUMIN 3.8 g/dL (3.4-5.0); SGOT 11 U/L (15-37); SGPT 19 U/L (30-65); TOTAL BILIRUBIN 0.4 mg/dL (<0.1-1.0); TOTAL PROTEIN 6.9 g/dL (6.4-8.2); TROPONIN-I <0.06 ng/mL (<0.06)
[2019-08-14 16:52] LABS: APTT 22.6 Seconds (24.5-32.8); PROTIME 10.4 Seconds (9.3-11.4)
[2019-08-14 16:57] LABS: ABSOLUTE NEUTROPHILS 4.4 thou/uL (1.4-8.2); ANISOCYTOSIS 1+; LARGE PLATELETS OCCASIONAL
--- NOTE | 2019-08-14 16:59 | NUR ---
ADDRESS: [address], [facility] [address] PHONE NUMBER: [phone] EMERGENCY CONTACT: DO MOSS () EMERGENCY CONTACT PHONE NUMBER: SAME ABOVE EMPLOYER: RETIRED
--- NOTE | 2019-08-14 17:10 | NUR ---
DO () CALLED FOR AN UPDATE, PROVIDED AN UPDATE.
[2019-08-14 20:49] LABS: URINE BILIRUBIN NEGATIVE (Negative); URINE BLOOD NEGATIVE (Negative); URINE CLARITY CLEAR; URINE COLOR YELLOW; URINE GLUCOSE-RANDOM* NEGATIVE (Negative); URINE KETONES NEGATIVE (Negative); URINE LEUKOCYTES-REFLEX NEGATIVE (Negative); URINE NITRITE-REFLEX NEGATIVE (Negative); URINE PROTEIN (DIPSTICK) NEGATIVE (Negative); URINE SPECIFIC GRAVITY >= 1.030 (1.005-1.035); URINE UROBILINOGEN 0.2 E.U./dl (0.2-1.0)
[2019-08-14 21:40] VITALS: BP 147/76
--- NOTE | 2019-08-14 21:43 | NUR ---
HEALTH CENTER ASSISTANT CALLED INPATIENT UNIT TO GIVE REPORT TO RECIEVING NURSE, WAS TOLD NURSE TOM WAS IN THE MIDDLE OF PT CARE AND WILL RETURN CALL ANA ROSA.
--- NOTE | 2019-08-14 21:51 | NUR ---
SECOND CALL PLACED- NURSE STILL IN THE MIDDLE OF ISOLATION PT CARE.
[2019-08-14 22:11] VITALS: BP 144/77
[2019-08-14 22:52] VITALS: BP 157/82
--- NOTE | 2019-08-14 23:03 | NUR ---
PT ARRIVED FROM THE ED 2244, PATIENT CAME IN WITH BELONGINGS (WALLET, PANTS, SHIRT, AND SHOES WHICH PT CONFIRMED). PATIENT WAS SOA UPON ARRIVAL, EVEN MORE SO WITH EXERTION. VS WERE STABLE, O2 AT 93%. PATIENT HAS NO COMPLAINTS OF PAIN AT THIS TIME. PT WAS ABLE TO AMBULATE TO THE BATHROOM WITH ASSISTANCE 10-15% ADMISSION IS IN PROCESS. DENIES NAUSEA/VOMITTING/DIARRHEA AT THIS TIME. WILL CONTINUE TO MONITOR.
--- NOTE | 2019-08-14 23:28 | EKG ---
[facility] [place] [address] ELECTROCARDIOGRAM REPORT Name: ISAKARLENE Alvarez Room #: 358-P ADM IN M.R.#: [id number] Admission: 08/14/19 Attend Phys: Triston iFne Discharge: Date of : 40 Report #: [id number] THIS REPORT FOR: cc: Shelley Gaona MD, Cora A. MD Couchonnal, Luis F. MD ~ THIS REPORT FOR: //name// [facility] ED Test Date: 2019-08-14 Test Time: 16:00:49 Pat Name: KARLENE MOSS Department: Room: [facility] Gender: M Charge Aide: gareth : 1940 Requested By: Alena Us Order Number: [id number] MD: Jesus Michaud Measurements Intervals [place] Rate: 118 P: 70 GA: 131 QRS: -30 QRSD: 93 T: 83 QT: 335 QTc: 470 Interpretive Statements Sinus tachycardia Probable left atrial enlargement Abnormal R-wave progression, early transition Inferior infarct, old Compared to ECG 05/08/2019 16:17:35 No significant changes Electronically Signed On 08-14-2019 23:27:24 CDT by Jesus Michaud [email or web address] <ELECTRONICALLY SIGNED> By: Jesus Michaud MD 08/14/19 2327 1600 1600 Jesus Michaud MD /EPI
[2019-08-15 05:15] VITALS: BP 120/77
[2019-08-15 08:30] VITALS: BP 125/80
[2019-08-15 12:21] VITALS: BP 108/65
--- NOTE | 2019-08-15 15:08 | NUR ---
PT ALERT AND ORIENTED TIMES FOUR. VSS, 95%2L, SR ON TELE. PT DENEIS PAIN BUT IS SOA ON EXERTION. PT TOLERATES MEDS, AND HAS A POOR APPETITE ONLY EATING SMALL PORIONS OF MEALS. PT UP TO THE RESTROOM WITH DARBY ASSIST. WILL CONTINUE TO MONITOR.
--- NOTE | 2019-08-15 15:26 | NUR ---
INITIAL ASSESSMENT: SW reviewed chart and spoke with nursing and attending physician. Pt was admitted from home due to pneumonia/dyspnea/chest pain. Pt is currently in Enhanced Isolation to r/o COVID-19. SW spoke with pt via phone. Introduced role of SW. Pt is alert/orientated x 4. Pt reports he lives at home with his . Prior to admission, pt was using a walker to assist as needed with ambulation. Pt was recently at [facility] and discharged to [facility] in May of this year. Pt's PCP is Dr. Shelley Gaona. Cardio: Dr. Joselito Michaud. Pulm: Dr. Beni Beverly. Pt used [facility] when discharged home from [facility]. Pt's goal is to return home when medically stable. SW is following to assist as needed with discharge planning.
[2019-08-15 17:25] VITALS: BP 116/72
[2019-08-15 19:38] VITALS: BP 134/75
[2019-08-16] VITALS (8 sets, daily range): BP systolic 125–146; BP diastolic 64–81
--- NOTE | 2019-08-16 02:00 | NUR ---
ASSUMED CARE FOR THIS PATIENT AT 1900. SINCE LAST NIGHT'S SHIFT PATIENT'S PULMONARY CONDITION HAS DETERIORATED AND NOW REQUIRED 2L OF OXYGEN W/O ANY ACTIVITY. LUNG SOUNDED TIGHT AND WHEEZY PRIOR TO BREATHING TREATMENT. PATIENT'S COVID-19 RESULTS POPULATED UNDETECTED. PATIENT HAS THEN SINCE BEEN TRANSFERED TO VIA BED W/ OXYGEN. PT'S CLOTHING/WALLET/SHOES WERE SENT OVER WITH THE PATIENT AND THE PT WAS STABLE AT THE TIME OF TRANSFER.
--- NOTE | 2019-08-16 06:02 | NUR ---
PT TRANSFERED FROM AROUND 2229. PT HAD NO C/O PAIN, SOA, OR N/V/D AFTER BEING SETTLED IN ROOM. PT ON OXYGEN WITH RESPIRATORY TREATMENTS. PT WAS ABLE TO REST THRU NIGHT WITH MINIMAL INTERRUPTIONS. WILL CONTINUE TO MONITOR PT FOR ANY CHANGES.
--- NOTE | 2019-08-16 11:53 | NUR ---
Spoke with patient regarding dc planning and home health care. Patient agreeable to resumption of Home Health care with [facility]. Sent referral for review. patient reports he has a walker at home.
--- NOTE | 2019-08-16 13:38 | NUR ---
[facility] accepting of patient at [place].
[2019-08-16] MEDS ORDERED: DALIRESP500 MCG PO (16:42)
--- NOTE | 2019-08-16 20:09 | NUR ---
ASSUMED CARE 0700. ALERT X4, FROM HOME. DENEIS SOB, DENIES CHEST PAIN, AVALOS PAIN TREATED WITH PRN TYLENOL, STAND BY ASSIST-STEADY. COMPLAINT WITH CARES. CALLS [facility] ASSITANCE. POSSIBLE DC TOMORROW. CALL LIGHT IN REACH. ALARM SET
[2019-08-17] VITALS (19 sets, daily range): BP systolic 115–152; BP diastolic 62–88
[2019-08-17 05:13] LABS: ABSOLUTE NEUTROPHILS 13.7 thou/uL (1.4-8.2); BASOPHILS 0.1 % (0.0-2.0); HEMATOCRIT 37.2 % (42.0-52.0); HEMOGLOBIN 12.4 gm/dL (14.0-18.0); LYMPHOCYTES 6.9 % (24.0-44.0); MCH 32.2 pg (26.0-34.0); MCHC 33.3 g/dL (28.0-37.0); MCV 96.6 fL (80.0-100.0); MONOCYTES 3.5 % (1.0-8.0); PLATELET COUNT 211 thou/uL (150-400); POLYS 89.5 % (36.0-66.0); RBC 3.85 mil/uL (4.50-6.00); RDW 14.1 % (10.5-14.5); WBC 15.3 thou/uL (4.0-11.0)
[2019-08-17 06:17] LABS: ALBUMIN 3.6 g/dL (3.4-5.0); CALCIUM 9.2 mg/dL (8.5-10.1); CREATININE 1.1 mg/dL (0.7-1.3); POTASSIUM 4.7 mmol/L (3.5-5.1); TOTAL BILIRUBIN 0.3 mg/dL (<0.1-1.0); TOTAL PROTEIN 6.6 g/dL (6.4-8.2)
--- NOTE | 2019-08-17 08:16 | NUR ---
ASSESSMENTS CHARTED, MEDS CHARTED GIVEN. PATIENT RESTING IN BED DURING SHIFT. ALERT AND ORIENTED, ON ROOM AIR, USING URINAL, UP WITH STANDBY ASSIST WITH WALKER. POSSIBLE PLAN IS FOR PATIENT TO GO HOME TODAY ON PO ANTIBIOTICS. TYLENOL FOR NECK PAIN. FALL PRECAUTIONS IN PLACE DURING SHIFT.
--- NOTE | 2019-08-17 15:50 | CATHLAB ---
[facility] [place] [address] INVASIVE PROCEDURE REPORT Name: KARLENE MOSS Room #: 212-P ADM IN M.R.#: [id number] Admission: 08/14/19 Attend Phys: Triston Fine Discharge: Date of : 40 Report #: [id number] THIS REPORT FOR: cc: Shelley Gaona MD, Cora A. MD Park, Jin S. MD ~ APPROVED REPORT Study performed: 08/17/2019 11:32:01 Patient Details Patient Status: In-Patient Room #: The patient is a 79 year-old male Event Personnel Uzair Watson Bolt Threader, Antonina Mcknight CVT Monitor, Zelda Bartlett RN RN, Lorri Diaz Scrjarred Procedures Performed Art Access - R femoral artery* Left Heart Cath w/or w/o Coronaries 1088842 LHC FFR 3441725 FFR Hemostasis w/ Mynx 11760 Initial Mod Sed Same Phys/QHP Gr5y 871288 44912 Mod Sed Same Phys/QHP Ea 497602 Indication Arrhythmia, Dyspnea, Positive stress test, Chest pain Risk Factors Chronic Lung DiseaseHypercholesterolemia, Hypertension Procedure Narrative The patient was brought urgently to the Cardiac Catheterization Laboratory and was prepped and draped in a sterile manner. The Right Groin^ was infiltrated with 1% Lidocaine subcutaneous anesthesia. A PINNACLE 4FR Sheath #[id number] sheath was inserted into the RFA 4FR^. Coronary angiography was performed using coronary diagnostic catheters. The right coronary system was accessed and visualized with a JR 4 catheter. The left coronary system was accessed and visualized with a JL 4 catheter. The left ventricle was accessed and visualized with a Pigtail catheter. Left ventricular/Aortic Valve gradient assessed via catheter pullback. Left ventriculogram was performed in BARRETO projection. Pre-demployment femoral angiogram was performed . Closure device was deployed with a 6 Fr Mynx. The patient tolerated the procedure well and there were no complications associated with [facility] [address] [email or web address] [address] INVASIVE PROCEDURE REPORT Name: CYNDY MOSSANDRES Room #: 212-P [facility] IN [facility].#: [id number] Admission: 08/14/19 Attend Phys: Triston Miranda Discharge: Date of : 40 Report #: [id number] the procedure. There was no hematoma. Intraoperative Conscious Sedation Sedation start time: 12:10 Case end Time: 13:00 Fentanyl 50 mcg Versed 1 mg Fluoro Time: 7.40 minutes Dose: DAP 7174.00 cGycm2 1836 mGy Contrast Type and Amount: Visipaque 90 ml Coronary Angiography The patient's coronary anatomy is right dominant. Diagnostic Cath Left Main There is a severe stenosis at the ostium, with krnnnrsviwmis-24-47%. No change with IC nitroglycerin. LAD The LAD is a moderate size caliber vessel, traverses the anterior wall and wraps around the apex. There is mild disease proximally. Diagonal 1 This is a patent vessel, with no flow-limiting lesions. Circumflex The left circumflex artery is a patent vessel, with no flow-limiting lesions. OM1 This is a moderate size caliber vessel with a high takeoff off the left circumflex artery. This vessel is patent. Right Coronary The RCA is a large, dominant vessel. There is a severe occlusion in the midsegment with calcification, 80%. R PDA This is a moderate size caliber vessel, patent with no flow-limiting lesions. RPLV There are multiple RPL branches, patent with no flow-limiting lesions. Left Ventriculography The left ventricle is normal in size with normal contractility. The left ventricular ejection fraction is estimated to be >55%. Hemodynamics The aortic pressure is 141/66 mmHg with a mean of 97 mmHg. The left ventricular pressure is 118/5 mmHg with a mean of mmHg. The left ventricular end diastolic pressure is 13 mmHg. Conclusion 1. 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 2. Normal LV systolic function. [facility] [address] [place] [address] INVASIVE PROCEDURE REPORT Name: KARLENE MOSS Room #: 212-P ADM IN M.R.#: [id number] Admission: 08/14/19 Attend Phys: Triston Miranda Discharge: Date of : 40 Report #: [id number] 3. iFR procedure was performed. 4. Recommend risk factor management and CV surgical consultation. <ELECTRONICALLY SIGNED> By: Uzair Watson MD 08/17/19 1548 1548 1548 Uzair Watson MD /INF
--- NOTE | 2019-08-17 17:02 | NUR ---
ASSUMED CARE 0700. HEART CATH TODAY WITHOUT INTERVENTIONS. RIGHT GROIN INSERTION SITE. PT FOLLOWED POST PROCEDUREL PROTOCAL WITH LEG. GROIN SIGHT C/D/I. DR VELAZQUEZ ROUND WITH PATIENT WITH SCHEDULED CABG SCHEDULED FOR 08/31- PREPROCEDURE PREPERATIONS HAVE BEEN IMPLIMENTED. PT WILL DC HOME WITH HH TOMORROW. COMPLAINTS OF GERD TREATED PANTOPRAZOLE. ON FALL PRECATIONS, STAND BY ASSIST TO BATHROOM. PERSONAL ITEMS IN REACH. CALLS FOR ASSISTANCE.
[2019-08-18 03:13] VITALS: BP 140/66
[2019-08-18 04:42] LABS: CALCIUM 8.2 mg/dL (8.5-10.1); POTASSIUM 4.2 mmol/L (3.5-5.1)
[2019-08-18 05:17] LABS: HEMATOCRIT 33.2 % (42.0-52.0); HEMOGLOBIN 11.4 gm/dL (14.0-18.0); MCHC 34.4 g/dL (28.0-37.0); MCV 95.8 fL (80.0-100.0); RBC 3.47 mil/uL (4.50-6.00); RDW 13.7 % (10.5-14.5); WBC 14.4 thou/uL (4.0-11.0)
--- NOTE | 2019-08-18 05:24 | NUR ---
ASSESSMENTS CHARTED, MEDS GIVEN CHARTED. PATIENT RESTING IN BED DURING SHIFT. UP AT AMANDO IN ROOM DURING SHIFT. PATIENT RIGHT GROIN IS DRY AND SOFT POST HEART CATH DURING DAY. DENIED PAIN. PLAN OF CARE IS FOR PATIENT TO GO HOME NOW AND RETURN FOR CABG ON 09/05/19.
[2019-08-18 08:36] VITALS: BP 141/77
[2019-08-18] MEDS ORDERED: LIPITOR40 MG PO (12:17)
[2019-08-18] MEDS ORDERED: NITROGLYCERIN0.4 MG SUBLING (12:18)
[2019-08-18] MEDS ORDERED: LOPRESSOR50 PO (12:18)
[2019-08-18] MEDS ORDERED: MUCINEX600 MG PO (12:22)
[2019-08-18] MEDS ORDERED: PREDNISONE 10 M10 MG PO (12:23)
[2019-08-18] MEDS ORDERED: LEVAQUIN 750 M750 MG PO (12:24)
--- NOTE | 2019-08-18 13:03 | NUR ---
ASSUMED CARE 0700. POST HEART CATH DAY 1, RIGHT MICHAEL SIGHT C/D/I. BREATHING IMPROVED. DENIES CHEST PAIN, DENIES SOB, WAITING DC HOME WITH HH. NRS ON TELE. PERSONAL ITEMS AND CALL LIGHT IN REACH.
[2019-08-18] MEDS ORDERED: TRELEGY ELLIPT1 EACH INH (13:16)
--- NOTE | 2019-08-18 15:37 | NUR ---
Pt dcing home today. HH orders faxed and confirmed with [facility]. No other cm interventions indicated.
[2019-08-19 01:07] LABS: GLYCOHEMOGLOBIN (HGB A1C) 5.6 % (4.8-5.6)
[2019-08-19 06:07] LABS: IgG 639 mg/dL (603-1613)
== END 2019-08-18 15:30 | disposition home health service (06) | DRG 286 ==
LOC: ER 15:57 → 3W 18:04 → 2N 18:04 → EROBS 18:04 → 3W 22:12 → 2N 08-15 23:08
PROVIDERS: Internal Medicine Cardiovascular Disease; Pediatrics; Physician Assistant; Surgery Vascular Surgery; ADMIT Hospitalist
PROC: 4A023N7 Measurement of Cardiac Sampling and Pressure, Left Heart, Percutaneous Approach (ICD-10-PCS; principal; 2019-08-17)
PROC: B211YZZ Fluoroscopy of Multiple Coronary Arteries using Other Contrast (ICD-10-PCS; principal; 2019-08-17)
PROC: B215YZZ Fluoroscopy of Left Heart using Other Contrast (ICD-10-PCS; principal; 2019-08-17)
DX: I25.10 Atherosclerotic heart disease of native coronary artery without angina pectoris (principal); J18.9 Pneumonia, unspecified organism; J96.21 Acute and chronic respiratory failure with hypoxia; J44.1 Chronic obstructive pulmonary disease with (acute) exacerbation; I47.1 Supraventricular tachycardia; I50.32 Chronic diastolic (congestive) heart failure; F17.210 Nicotine dependence, cigarettes, uncomplicated; K21.9 Gastro-esophageal reflux disease without esophagitis; E53.8 Deficiency of other specified B group vitamins; N40.0 Benign prostatic hyperplasia without lower urinary tract symptoms; G47.00 Insomnia, unspecified; M54.2 Cervicalgia; I11.0 Hypertensive heart disease with heart failure; I49.9 Cardiac arrhythmia, unspecified; Z79.2 Long term (current) use of antibiotics; Z79.899 Other long term (current) drug therapy; Z90.49 Acquired absence of other specified parts of digestive tract; Z90.89 Acquired absence of other organs; Z87.01 Personal history of pneumonia (recurrent); Z88.0 Allergy status to penicillin; Z88.5 Allergy status to narcotic agent; Z03.818 Encounter for observation for suspected exposure to other biological agents ruled out
CPT/HCPCS: 10081; 10879

== ENCOUNTER 2019-09-01 06:20 | Inpatient (IN) | payer OTHER ==
[2019-09-01] VITALS (9 sets, daily range): BP systolic 80–131; BP diastolic 37–59
[~2019-09-01] VITALS: Ht 180.3 cm; Wt 68.4 kg
[~2019-09-01 06:20] MED LIST changes: +DALIRESP500 MCG PO; +LEVAQUIN 750 M750 MG PO; +LIPITOR40 MG PO; +LOPRESSOR50 MG PO; +LOPRESSOR50 PO; +MUCINEX600 MG PO; +NITROGLYCERIN0.4 MG SUBLING; +PREDNISONE 10 M10 MG PO; +TRELEGY ELLIPT1 EACH INH
[2019-09-01 12:32] LABS: HEMATOCRIT 22.7 % (42.0-52.0); HEMOGLOBIN 7.7 gm/dL (14.0-18.0); MCH 33.1 pg (26.0-34.0); MCHC 33.8 g/dL (28.0-37.0); MCV 98.1 fL (80.0-100.0); RBC 2.31 mil/uL (4.50-6.00); RDW 13.9 % (10.5-14.5)
[2019-09-01 12:44] LABS: FIBRINOGEN 128.6 mg/dL (210-360); INR 1.3; PROTIME 13.4 Seconds (9.3-11.4)
[2019-09-01 13:24] LABS: POC BE 2 mmol/L (-2.0 to +3.0); POC CA IONIZED 4.8 mg/dL (4.5-5.3); POC GLUCOSE 121 mg/dL (70-99); POC HCO3 26.3 mmol/L (22.0-26.0); POC HEMOGLOBIN 11.2 g/dL (14.0-18.0); POC POTASSIUM 4.9 mmol/L (3.5-5.1); POC SODIUM 133 mmol/L (136-145); POC pCO2 38.9 mmHg (35.0-45.0); POC pH 7.438 (7.360-7.450)
[2019-09-01 13:24] LABS: POC BE 2 mmol/L (-2.0 to +3.0); POC CA IONIZED 4.6 mg/dL (4.5-5.3); POC GLUCOSE 141 mg/dL (70-99); POC HCO3 26.6 mmol/L (22.0-26.0); POC HEMOGLOBIN 10.2 g/dL (14.0-18.0); POC POTASSIUM 4.8 mmol/L (3.5-5.1); POC SODIUM 133 mmol/L (136-145); POC pCO2 44.2 mmHg (35.0-45.0); POC pH 7.387 (7.360-7.450)
[2019-09-01 13:27] LABS: POC BE 2 mmol/L (-2.0 to +3.0); POC CA IONIZED 4.1 mg/dL (4.5-5.3); POC GLUCOSE 165 mg/dL (70-99); POC HCO3 26.4 mmol/L (22.0-26.0); POC HEMOGLOBIN 6.8 g/dL (14.0-18.0); POC POTASSIUM 5.7 mmol/L (3.5-5.1); POC SODIUM 130 mmol/L (136-145); POC pCO2 39.5 mmHg (35.0-45.0); POC pH 7.433 (7.360-7.450)
[2019-09-01 13:27] LABS: POC BE 6 mmol/L (-2.0 to +3.0); POC GLUCOSE 170 mg/dL (70-99); POC HCO3 29.9 mmol/L (22.0-26.0); POC HEMOGLOBIN 6.8 g/dL (14.0-18.0); POC POTASSIUM 5.7 mmol/L (3.5-5.1); POC SODIUM 132 mmol/L (136-145); POC pCO2 41.1 mmHg (35.0-45.0)
[2019-09-01 13:27] LABS: POC BE 3 mmol/L (-2.0 to +3.0); POC CA IONIZED 4.7 mg/dL (4.5-5.3); POC GLUCOSE 171 mg/dL (70-99); POC HCO3 27.2 mmol/L (22.0-26.0); POC HEMOGLOBIN 7.1 g/dL (14.0-18.0); POC POTASSIUM 4.5 mmol/L (3.5-5.1); POC SODIUM 134 mmol/L (136-145); POC pCO2 42.8 mmHg (35.0-45.0)
[2019-09-01 13:27] LABS: POC BE 3 mmol/L (-2.0 to +3.0); POC CA IONIZED 3.9 mg/dL (4.5-5.3); POC GLUCOSE 153 mg/dL (70-99); POC HEMOGLOBIN 7.8 g/dL (14.0-18.0); POC POTASSIUM 5.6 mmol/L (3.5-5.1); POC SODIUM 132 mmol/L (136-145); POC pCO2 38.4 mmHg (35.0-45.0); POC pH 7.455 (7.360-7.450)
[2019-09-01 13:28] LABS: BE(vivo) -4.7 mmol/L (-2 to +3); HCO3 21.3 mmol/L (22.0-26.0); PCO2 43.4 mmHg (35.0-45.0); PO2 263.9 mmHg (80.0-100.0); sO2 99.5 % (92.0-98.0)
[2019-09-01 13:28] LABS: POC BE 0 mmol/L (-2.0 to +3.0); POC CA IONIZED 4.5 mg/dL (4.5-5.3); POC GLUCOSE 146 mg/dL (70-99); POC HCO3 25.3 mmol/L (22.0-26.0); POC HEMOGLOBIN 8.5 g/dL (14.0-18.0); POC POTASSIUM 4.1 mmol/L (3.5-5.1); POC SODIUM 136 mmol/L (136-145); POC pCO2 42.2 mmHg (35.0-45.0); POC pH 7.386 (7.360-7.450)
[2019-09-01 13:29] LABS: pH 7.309 (7.360-7.450)
[2019-09-01 13:37] LABS: HEMOGLOBIN 9.8 gm/dL (14.0-18.0); MCH 32.8 pg (26.0-34.0); MCHC 33.7 g/dL (28.0-37.0); MCV 97.2 fL (80.0-100.0); RBC 2.98 mil/uL (4.50-6.00); RDW 13.9 % (10.5-14.5); WBC 27.6 thou/uL (4.0-11.0)
--- NOTE | 2019-09-01 13:47 | NUR ---
1316 PT ARRIVED FROM OR WITH SURGEON, OR STAFF, ANETHSTESIA. PLACED ON MONITOR AND VIGILANCE. RAFAEL WATTERS APPLIED. CT TO SUCTION. TAJ RN NIGHTS ORIENTING TO TAKE OPEN HEART TODAY. NEGRITA WAY AT BEDSIDE TO ADJUST ORDERS.
[2019-09-01 13:48] LABS: CALCIUM 7.1 mg/dL (8.5-10.1); MAGNESIUM 2.4 mg/dL (1.8-2.4)
[2019-09-01 13:51] LABS: INR 1.1; PROTIME 11.7 Seconds (9.3-11.4)
[2019-09-01 17:35] LABS: BE(vivo) -3.2 mmol/L (-2 to +3); HCO3 21.6 mmol/L (22.0-26.0); PCO2 37.2 mmHg (35.0-45.0); pH 7.381 (7.360-7.450); sO2 99.2 % (92.0-98.0)
[2019-09-01 18:18] LABS: BE(vivo) -12.6 mmol/L (-2 to +3); HCO3 12.4 mmol/L (22.0-26.0); PO2 163.1 mmHg (80.0-100.0)
[2019-09-01 18:19] LABS: PCO2 24.7 mmHg (35.0-45.0); pH 7.319 (7.360-7.450)
--- NOTE | 2019-09-01 19:50 | NUR ---
1942: Pt extubated per RT. On 40% humidified face shield, O2 sat 100%. Pt given Fentanyl 25 mcg for 10/10 generalized pain. Voice raspy and weak but able to talk clearly. Dr. Velarde here to see pt.
--- NOTE | 2019-09-02 05:35 | NUR ---
Pt progressing toward goals. Able to titrate off Neosynephrine, SBP > 100 when in bed, > 90 when up to chair. Shoup-Ladonna cath pulled out a few cm during transfer to chair, CVP no long reading accurately. Amiodorone gtt stopped due to low BP. Pt still having frequent bigemeny and PAC's, otherwise sinus rhythm. All drsgs clean, dry and intact. Pt was extubated at 1943, initially on 40% face sheild and has been titrated down to 3 L nasal canula. CO 4.0 to 6.0, CI 2.6 to 3.0, SVR 700 to 1100 through this shift. Urine output adequate, 25-40 cc/hr through the night, 449 cc out for [address] x2 to -20 cmH2O without air leak, total 480 cc out for this shift; Left plural CT x1 to -20 cmH2O without air leak or crepitus, 240 cc out this shift; both tubes have sanguious drainage.
[2019-09-02 06:09] LABS: MCH 33.3 pg (26.0-34.0); MCHC 33.8 g/dL (28.0-37.0); MCV 98.5 fL (80.0-100.0); RBC 2.34 mil/uL (4.50-6.00); RDW 14.2 % (10.5-14.5); WBC 14.2 thou/uL (4.0-11.0)
[2019-09-02 06:15] LABS: HEMOGLOBIN 7.8 gm/dL (14.0-18.0)
[2019-09-02 06:16] LABS: CREATININE 1.3 mg/dL (0.7-1.3); MAGNESIUM 2.3 mg/dL (1.8-2.4); POTASSIUM 4.7 mmol/L (3.5-5.1)
--- NOTE | 2019-09-02 17:54 | NUR ---
DR. VELAZQUEZ HERE. UPDATE GIVEN. ORDERS GIVEN WILL INCREASE LR TO 100
[2019-09-03] VITALS (20 sets, daily range): BP systolic 86–124; BP diastolic 37–66
--- NOTE | 2019-09-03 05:17 | NUR ---
Pt was assisted from the recliner to the bed with assist x 1, he tolerated this well, and has been resting, at times through the shift. He reports discomfort,(at home he only usually takes PO tylenol for pain, with good effect) and points to his chest and right side, rating it from 5-8/10. He has received prn fentanyl x 2, and IV tylenol Q6H. he has been tachycardic, minimal ectopy noted, Rt Radial art line is positional, the line has been zeroed, the arm board has been adjusted and readings are widely labile, from 110's to 160's, neither value has been sustained. The BP cuff was placed on the left upper arm, as a point of reference, and initially, SBP was in the 80's, the lowest MAP was 58 and is currently reading 116/53 (63). Pt is now on room air, with sats from 96% and above, no SOA noted, he did expectorate sputum (with the transfer to the bed), and is encouraged to cough/deep breathe. The drainage from the chest tubes is lightening in color and decreasing in quantity. Since midnight, the meds tube has drained 70 ml's and the pleural has drained 32 ml's. Pt still has a poor appetite, is offered fluids frequently, bowel sounds are hypoactive. The mirza is patent, draining clear yellow urine to DD, he has voided approx 375 ml's of clear yellow urine. The bed is in the low/locked position, the call light is within reach, the siderails are up x 4 and pt is progressing towards his POC goals.
--- NOTE | 2019-09-03 08:57 | O ---
[facility] [address] OPERATIVE REPORT Name: KARLENE MOSS Room #: 248-P ADM IN M.R.#: [id number] Admission: 09/01/19 Attend Phys: Jovanny Velarde MD Discharge: Date of : 40 Report #: [id number] THIS REPORT FOR: cc: Shelley Gaona MD, Cora A. MD Forman,Jovanny Fatima MD ~ CC: Shelley Velarde DATE OF SERVICE: 09/01/2019 PREOPERATIVE DIAGNOSIS: Coronary artery disease. POSTOPERATIVE DIAGNOSIS: Coronary artery disease. OPERATION: Coronary artery bypass x 3 including left internal mammary artery to left anterior descending artery, saphenous vein to marginal and saphenous vein to posterior descending artery. Endoscopic harvest, left greater saphenous vein. SURGEON: Jovanny Velarde MD SLATE HANDLER: RAYNA Gann. ANESTHESIA: General. INDICATIONS: The patient is a 79-year-old with coronary artery disease. The patient presents with progressive shortness of breath and fatigue. Catheterization demonstrates a 60% ostial left main stenosis and an 80% mid right coronary lesion. Left ventricular function is satisfactory. FINDINGS AND TECHNIQUE: After general anesthesia was established, saphenous vein was harvested and prepared for use as a conduit and an endoscopic approach was used. Exposure was obtained through median sternotomy. Left internal mammary artery was harvested from chest wall. Pericardial well was made. Cannulation sutures were placed. Heparin was given. Aorta was cannulated. Right atrium was cannulated. Cardioplegia needle was positioned in the aortic root. Retrograde cardioplegic catheter was placed in coronary sinus. Cardiopulmonary bypass was established. The aorta was cross clamped. Antegrade and retrograde cardioplegia were given. Ice was poured in the pericardial well. The heart was stopped. During electromechanical arrest, the distal anastomoses were performed and end-to-side anastomosis was made between vein and the posterior descending [facility] [address] [place] [address] OPERATIVE REPORT Name: KARLENE MOSS Room #: 248-P [facility] IN .R.#: [id number] Admission: 09/01/19 Attend Phys: Jovanny Velarde MD Discharge: Date of : 40 Report #: [id number]. Cold cardioplegia was given. Separate segment of vein was sewn in end-to-side fashion to the large first marginal artery. Cold cardioplegia was given. Left internal mammary artery was sewn in end-to-side fashion to the left anterior descending artery. Patency was checked with the temperature technique and the Doppler. Cold cardioplegia was given. Two proximal anastomoses were performed and these were complete, warm retrograde cardioplegia was given followed by warm continuous blood. When this infusion was complete, crossclamp was removed, de-airing maneuvers were performed. The anastomoses were inspected and found to be satisfactory. Flows were measured in the bypass grafts. When hemostasis was satisfactory, chest was irrigated with antibiotic solution and closed in the usual fashion. The patient was taken to the Intensive Care Unit in good condition having tolerated the procedure well. All counts reported as correct. <ELECTRONICALLY SIGNED> By: Jovanny Velarde MD 09/03/19 0857 1051 1102 Jovanny Velarde MD /nt
[2019-09-03 09:02] LABS: BASOPHILS 0.1 % (0.0-2.0); EOSINOPHILS 0.3 % (0.0-3.0); HEMATOCRIT 21.8 % (42.0-52.0); HEMOGLOBIN 7.4 gm/dL (14.0-18.0); LYMPHOCYTES 6.4 % (24.0-44.0); MCH 33.3 pg (26.0-34.0); MCHC 34.1 g/dL (28.0-37.0); MCV 97.5 fL (80.0-100.0); MONOCYTES 7.4 % (1.0-8.0); POLYS 85.8 % (36.0-66.0); RBC 2.24 mil/uL (4.50-6.00); RDW 13.9 % (10.5-14.5); WBC 16.3 thou/uL (4.0-11.0)
[2019-09-03 09:10] LABS: CALCIUM 7.3 mg/dL (8.5-10.1); CREATININE 1.2 mg/dL (0.7-1.3); POTASSIUM 3.9 mmol/L (3.5-5.1)
--- NOTE | 2019-09-03 09:22 | NUR ---
ASSUMED CARE OF PATIENT AT 0700, STATES THAT HIS PAIN IS A 2/10. MOANS AND SHALLOW RAPID BREATHES NOTED. ASSISTED UP TO THE CHAIR FOR BREAKFAST, DARK RED DRAINAGE PER PLEURAL AND MEDISTINAL CT, PREVIOUSLY CENTER HUMAN RESOURCES MANAGER IN COLOR. LAB DRAWN AND SENT TO LAB, AWAITING RESULTS. TAKINGS SIPS OF JUICE. U/O 50ML/HR. WILL CONTINUE TO MONITOR.
[2019-09-03 10:06] LABS: PLATELET COUNT 73 thou/uL (150-400)
--- NOTE | 2019-09-03 14:00 | NUR ---
PATIENT PROGRESSING TOWARDS GOALS EVIDENT BY, MEDIASTINAL CT DRAINAGE LESS THAN 20 CC/2 HOURS FOR SEVERAL HOURS, MEDIASTINAL CHEST TUBS PULLED WITHOUT INCIDENT, PATIENT TOLERATED WITHOUT INCIDENT. IVF INFUSED INTRODUCER ALSO DC'D. SMALL AMT OF BLOODY DRAINAGE NOTED. TOLERATED WITHOUT INCIDENT. MILLER ALSO DC'D, PATIENT SAT 95% OR GREATER AND NOW ON ROOM AIR. WILL CONTINUE TO MONITOR.
--- NOTE | 2019-09-03 16:29 | NUR ---
SPOKE WITH PATIENT'S AVERY AND UPDATED HER TO THE POC AND REASSURANCE GIVEN.
--- NOTE | 2019-09-03 18:26 | NUR ---
PATIENT PROGRESSING TOWARDS OUTCOME GOALS EVIDENT BY OUT OF BED X 2 TODAY. PAIN CONTROLLED WITH PO TYLENOL. ON ROOM AIR WITH STRONG PRODUCTIVE COUGH OF THICK CREAMY COLORED SPUTUM. IS ENCOURAGED 600 CC, APPITITE POOR BUT WILL CONSUME PROTEIN SUPPLIMENT. VOIDING AFTER MILLER DC'D SMALL AMOUNTS. MONITOR ST IN THE LOWER 100'S, DEWEY REMAINS POSITIONAL AND INCONSISTENT WITH CUFF WHICH IS READING LOWER, PLEURAL CT HAD 100 ML OF DRAINAGE, INCREASE NOTED WHEN UP TO CHAIR. HIT LAB TEST PENDING FOR PLATLET COUNT TRENDING DOWN. PATIENT AND FAMILY UPDATED TO POC AND REASSURANCE GIVEN.
[2019-09-04] VITALS (27 sets, daily range): BP systolic 88–145; BP diastolic 36–88
[2019-09-04 04:37] LABS: BE(vivo) -1.8 mmol/L (-2 to +3); HCO3 20.8 mmol/L (22.0-26.0); PO2 69.9 mmHg (80.0-100.0); pH 7.505 (7.360-7.450); sO2 95.7 % (92.0-98.0)
--- NOTE | 2019-09-04 05:38 | NUR ---
AOX4. ON RA. SOA WITH EXERTION. VSS. LOW GRADE FEVER. LEFT PLUERAL CHEST TUBE IN PLACE. OUTPUT NOTED. DEWEY IN PLACE, AND FUCTIONING. VOIDING PER URINAL. PROGRESSING TOWARDS GOAL. WILL CONTINUE TO MONITOR.
--- NOTE | 2019-09-04 08:54 | EKG ---
[facility] [place] [place] [address] ELECTROCARDIOGRAM REPORT Name: KARLENE MOSS Room #: 248-P ADM IN M.R.#: [id number] Admission: 09/01/19 Attend Phys: Jovanny Velarde MD Discharge: Date of : 40 Report #: [id number] THIS REPORT FOR: cc: Shelley Gaona MD, Cora A. 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
--- NOTE | 2019-09-04 08:56 | EKG ---
[facility] [place] [address] ELECTROCARDIOGRAM REPORT Name: KARLENE MOSS Room #: 248-P ADM IN M.R.#: [id number] Admission: 09/01/19 Attend Phys: Jovanny Velarde MD Discharge: Date of : 40 Report #: [id number] THIS REPORT FOR: cc: Shelley Gaona MD, Cora A. MD [place],Juan Mo MD [facility] ~ THIS REPORT FOR: //name// [facility] Test Date: 2019-09-02 Test Time: 07:41:32 Pat Name: KARLENE MOSS Department: Room: 248 Gender: M Bricklayer Sewer: Nic CARTY : 1940 Requested By: Wilber Booth Order Number: [id number] MD: Juan Andrews Measurements Intervals [place] Rate: 86 P: 90 [place]: 130 QRS: -12 QRSD: 98 T: 58 QT: 381 QTc: 456 Interpretive Statements Sinus rhythm Inferior-posterior infarct, age indeterminate Compared to ECG 08/14/2019 16:00:49 Premature ventricular complexes no longer present Electronically Signed On 09-04-2019 8:54:34 CDT by Juan Andrews [email or web address] <ELECTRONICALLY SIGNED> By: Juan Andrews MD, [facility] 09/04/19 0854 0741 0741 Juan Andrews MD, [facility] /EPI
[2019-09-04 11:12] LABS: HEMATOCRIT 21.4 % (42.0-52.0); HEMOGLOBIN 7.2 gm/dL (14.0-18.0); MCH 33.2 pg (26.0-34.0); MCHC 33.6 g/dL (28.0-37.0); MCV 98.8 fL (80.0-100.0); RBC 2.17 mil/uL (4.50-6.00); RDW 14.1 % (10.5-14.5); WBC 13.5 thou/uL (4.0-11.0)
--- NOTE | 2019-09-04 11:15 | NUR ---
Received consult for diet education. Pt s/p CABG for CAD on 08/31. Remains in ICU. Had hx unintentional wt loss from 170 lb to 147 lb lowest wt. Current wts 151 lb. Remains in ICU, poor appetite but willing to drink Ensure Enlive oral supplements 70-80% consumption which provides 350 matt and 20g protein each. Allowed regular diet so no diet instruction at this time needed. Will follow intake trends. Low nutrition risk with appropriate nutrition interventions in place
--- NOTE | 2019-09-04 15:13 | NUR ---
ALERT AND ORIENTED, HYPOTENSIVE THIS MORNING AND BETA JJ HELD PER PARAMETERS. OTHER VITALS STABLE. UP IN THE CHAIR IN THE MORNING AND THIS AFTERNOON. MEDICATED FOR PAIN WITH PRN MEDS. TOLERATED DIET W/O NAUSEA. A-LINE DC'D IN THE MORNING AND PLEURAL CT DC'D BY NEGRITA THIS AFTERNOON. PACER WIRES STILL PRESENT AND CAPPED. FAMILY UPDATED VIA PHONE AND TRANSFER ORDERS RECEIVED. PATIENT PROGRESSING TOWARDS POC GOALS.
--- NOTE | 2019-09-04 16:40 | NUR ---
INITIAL ASSESSMENT: Received consult. SW reviewed chart and spoke with nursing and attending physician. Pt is s/p CABG. Pt remains in ICU and will transfer out later today pending bed availability. Pt to have chest tube discontinued today. SW attempted to contact pt in room. No phone in pt's room. Pt does not have a cell phone. SW attempted to reach pt's . No option to leave voice message on cell phone. SW spoke with pt's son, Herber, via phone. Pt and live at home. Prior to admission, pt was using a walker. Pt has been to [facility] SNF in the past for short term rehab and has used [facility]. Pt's PCP is Dr. Shelley Kohler. Pt's son states that pt did enjoy being at [facility] and anticipates he will need to go to SNF prior to returning home. SW to follow up with pt once he moves out of ICU to assist with discharge planning.
--- NOTE | 2019-09-04 17:39 | NUR ---
PATIENT TRANSFERRED TO 209 AFTER REPORT WAS CALLED TO RONALD MORIN AND RONALD STYLES. BELONGING TAKEN TO NEW ROOM.
--- NOTE | 2019-09-04 18:52 | NUR ---
PT CARE ASSUMED APPROX 1740 UPON TRANSFER FROM ICU. ALERT AND ORIENTED X4. DENIES PAIN AND SOA. VSS. UP WITH MIN ASSIST TO CHAIR AT THIS TIME. DENIES QUESTIONS OR CONCERNS REGARDING POC OR TRANSFER AT THIS TIME. NO DISTRESS NOTED.
[2019-09-05 00:08] VITALS: BP 109/51
--- NOTE | 2019-09-05 01:57 | NUR ---
PATIENT SAYS HE DOESN'T FEEL GOOD AT THE BEGINNING OF THE SHIFT,THAT HE HAS INCISION PAIN ON HIS CHEST AND ALSO BACK PAIN AND HEADACHE.TYLENOL GIVEN AND VERBALIZED PAIN RELIEF.ON O2 2L NC.PACERWIRES CAPPED.MONITOR SHOWS SA.POC CONTINUED.
[2019-09-05 05:12] VITALS: BP 133/51
[2019-09-05 05:36] LABS: HEMATOCRIT 20.5 % (42.0-52.0); HEMOGLOBIN 7.1 gm/dL (14.0-18.0); MCH 33.8 pg (26.0-34.0); MCHC 34.3 g/dL (28.0-37.0); MCV 98.4 fL (80.0-100.0); RBC 2.09 mil/uL (4.50-6.00); RDW 13.9 % (10.5-14.5); WBC 10.1 thou/uL (4.0-11.0)
[2019-09-05 05:41] LABS: CALCIUM 8.2 mg/dL (8.5-10.1); POTASSIUM 4.2 mmol/L (3.5-5.1)
[2019-09-05 07:23] VITALS: BP 97/53
--- NOTE | 2019-09-05 08:05 | EKG ---
[facility] [place] [address] ELECTROCARDIOGRAM REPORT Name: KARLENE MOSS Room #: 209-P ADM IN M.R.#: [id number] Admission: 09/01/19 Attend Phys: Jovanny Velarde MD Discharge: Date of : 40 Report #: [id number] THIS REPORT FOR: cc: Shelley Gaona MD, Cora A. MD [place],Juan Mo MD [facility] ~ THIS REPORT FOR: //name// [facility] Test Date: 2019-09-05 Test Time: 07:41:30 Pat Name: KARLENE MOSS Department: Room: 209 P Gender: M Regional Director: CHELSY : 1940 Requested By: Wilber Booth Order Number: [id number] MD: Juan Andrews Measurements Intervals [place] Rate: 115 P: 56 [place]: 116 QRS: -9 QRSD: 90 T: 90 QT: 340 QTc: 471 Interpretive Statements Sinus tachycardia Inferior-posterior infarct, age indeterminate Nonspecific ST and T wave abnormality Compared to ECG 09/02/2019 07:41:[address] and T wave abnormality is now present Electronically Signed On 09-05-2019 8:03:23 CDT by Juan Andrews [email or web address] <ELECTRONICALLY SIGNED> By: Juan Andrews MD, [facility] 09/05/19 0803 0 0 Juan Andrews MD, FAC /EPI
[2019-09-05 10:53] VITALS: BP 119/55
--- NOTE | 2019-09-05 12:42 | NUR ---
PT CARE ASSUMED APPROX 0700. ASSESSMENT CHARTED. PT DENIES PAIN AND SOA. REPORTS WEAKNESS AND FATIGUE. DRs ARE AWARE. PT MOBILIZING WITH NURSING AND CARDIAC REHAB. RAYNA REES WAS NOTIFIED/REMINDED THAT PT'S STERNAL SANDI DSG WAS TO BE REPLACED THIS SHIFT. HE VERBALIZED THAT HE'D BE BACK THIS SHIFT TO CHANGE DSG SINCE PT WAS NOT GOING TO TOLERATE POST OP SHOWER. CARE OF PT TRANSFERRED TO ONCOMING NURSE. NO DISTRESS NOTED AT THIS TIME.
--- NOTE | 2019-09-05 15:07 | NUR ---
sp with therapy, chart reviewed. Patient would benefit from post acute care. Discussed with patient and . Plan referral to [facility] where patient has rec post acute care in past.
--- NOTE | 2019-09-05 16:18 | NUR ---
RECIEVE REPORT AT 1300 TODAY FROM JENSEN CARDENAS.
--- NOTE | 2019-09-05 16:47 | NUR ---
FA[facility]ED REFERRAL TO [facility] SPOKE WITH PATRIZIA IN ADM SHE RECEIVED REFERRAL AND WILL NEED TO SEE IF THEY WILL HAVE BED AVAILABLE WILL F/U WITH HER IN THE AM.
[2019-09-05 20:09] VITALS: BP 106/51
[2019-09-06 04:36] VITALS: BP 113/58
--- NOTE | 2019-09-06 04:45 | NUR ---
ASSUMED PT CARE AT 1900. PT IS ALERT AND ORIENTED. NO SIGN OF DISTRESS NOTED IN PT. DENIES ANY PAIN. STERNAL INCISION SITE DRESSING IS INTACT. PT IS LAYING IN BED, HAVING DIFFICULTY COUGHING UP SPUTUM, ENCOURAGED THE USE OF IS. FALL PRECAUTION IN PLACE. ASSESSMENT COMPLETED AND DOCUMENTED. SCHEDULED MEDS ADMINISTERD TO PT. TOLERATED PO INTAKE. PT IS STABLE THROUGHOUT THE NIGHT. DENIES ANY FURTHER NEEDS AT THIS TIME.
[2019-09-06 08:00] VITALS: BP 115/58
[2019-09-06 08:29] LABS: HEMATOCRIT 21.8 % (42.0-52.0); HEMOGLOBIN 7.4 gm/dL (14.0-18.0); MCH 33.6 pg (26.0-34.0); MCHC 33.8 g/dL (28.0-37.0); MCV 99.5 fL (80.0-100.0); RBC 2.19 mil/uL (4.50-6.00); RDW 14.3 % (10.5-14.5); WBC 10.4 thou/uL (4.0-11.0)
[2019-09-06 08:46] LABS: CALCIUM 8.5 mg/dL (8.5-10.1); CREATININE 1.2 mg/dL (0.7-1.3); POTASSIUM 4.5 mmol/L (3.5-5.1)
[2019-09-06 11:30] VITALS: BP 115/58
--- NOTE | 2019-09-06 13:56 | NUR ---
patient accepted to [facility]. They rec auth. Possible dc in am. Left message with to call casemgt. Notified patient who is in agreement.
--- NOTE | 2019-09-06 14:33 | NUR ---
Spoke with who reports at dc for skilled please give family approx 2 hours timeframe of discharge transport. They want family to meet patient at [facility] to wave at him before he enters building for therapy. Casemgt following
--- NOTE | 2019-09-06 16:18 | NUR ---
ASSUMED CARE AT SHIFT CHANGE, ALERT AND ORIENTED X4 AND ASSESSMENT CHARTED. PATIENT REPORTS FATIGUE AND WEAKNESS DOCS ARE AWARE, AND [facility] STATED THAT HE IS BETTER THAN YESTEDAY. VSS AND AFEBRILE, HE STILL HAS A POOR APPETITE. PROGRESSING SLOWLEY AND WILL CONTINUE TO MONITOR.
[2019-09-06 17:00] VITALS: BP 120/81; BP 96/48
[2019-09-06 20:55] VITALS: BP 106/65
[2019-09-07] VITALS (8 sets, daily range): BP systolic 83–116; BP diastolic 52–86
--- NOTE | 2019-09-07 04:58 | NUR ---
ASSUMED PT CARE AT 1900. PT IS ALERT AND ORIENTED WITH NO SIGN OF DISTRESS NOTED AT THIS TIME. PT IS STABLE. FALL PRECAUTION IN PLACE. DENIES ANY PAIN. FALL PRECAUTION IN PLACE. ASSESSMENT COMPLETED AND DOCUMENTED. SCHEDULED MEDS ADMINISTERED TO PT. CONTINUE TO MONITOR. DENIES ANY FURTHER NEEDS AT THIS TIME.
[2019-09-07 06:08] LABS: CALCIUM 8.6 mg/dL (8.5-10.1)
--- NOTE | 2019-09-07 07:48 | EKG ---
[facility] [place] [address] ELECTROCARDIOGRAM REPORT Name: KARLENE MOSS Room #: 209-P ADM IN M.R.#: [id number] Admission: 09/01/19 Attend Phys: Jovanny Velarde MD Discharge: Date of : 40 Report #: [id number] THIS REPORT FOR: cc: Shelley Gaona MD, Cora A. MD [place],Juan Mo MD [facility] ~ THIS REPORT FOR: //name// [facility] Test Date: 2019-09-06 Test Time: 07:13:56 Pat Name: KARLENE MOSS Department: Room: 209 Gender: M Market Risk Specialist: CHELSY : 1940 Requested By: Wilber Booth Order Number: [id number] MD: Juan Andrews Measurements Intervals [place] Rate: 95 P: 66 [place]: 120 QRS: -10 QRSD: 102 T: 83 QT: 374 QTc: 470 Interpretive Statements Sinus tachycardia Multiple ventricular premature complexes Inferior-posterior infarct, age indeterminant Nonspecific ST segment abnormality Compared to ECG 09/05/2019 07:41:30 Ventricular premature complex(es) now present Electronically Signed On 09-07-2019 7:47:10 CDT by Juan Andrews [email or web address] <ELECTRONICALLY SIGNED> By: Juan Andrews MD, [facility] 09/07/19 0747 2 2 Juan Andrews MD, FAC /EPI
[2019-09-07 10:49] LABS: HEMATOCRIT 20.2 % (42.0-52.0); HEMOGLOBIN 6.8 gm/dL (14.0-18.0); MCH 33.5 pg (26.0-34.0); MCHC 33.7 g/dL (28.0-37.0); MCV 99.6 fL (80.0-100.0); RBC 2.03 mil/uL (4.50-6.00); RDW 14.3 % (10.5-14.5); WBC 8.8 thou/uL (4.0-11.0)
[2019-09-07 13:37] LABS: % SATURATION 10 % (20-39); IRON 17 ug/dL (65-175); TIBC 168 ug/dL (250-450)
[2019-09-07 13:52] LABS: FOLIC ACID 18.5 ng/mL (8.6-58.9); TSH 1.359 uIU/mL (0.358-3.740)
--- NOTE | 2019-09-07 14:18 | NUR ---
No dc to snf today. Pt with hgb 6.8 and getting one unit of blood. Discussed with the care team and CTS. Possible dc to snf tomorrow. Karena Conway notified. They will have a bed for him tomorrow. Pt's updated and would like a followup call tomorrow to confirm dc timeframe.
[2019-09-08 04:05] VITALS: BP 120/62
[2019-09-08 05:18] LABS: HEMATOCRIT 23.9 % (42.0-52.0); HEMOGLOBIN 8.2 gm/dL (14.0-18.0); MCH 32.9 pg (26.0-34.0); MCHC 34.1 g/dL (28.0-37.0); MCV 96.6 fL (80.0-100.0); RBC 2.48 mil/uL (4.50-6.00); RDW 15.9 % (10.5-14.5); WBC 7.8 thou/uL (4.0-11.0)
[2019-09-08 05:50] LABS: CALCIUM 8.4 mg/dL (8.5-10.1); CREATININE 1.1 mg/dL (0.7-1.3); POTASSIUM 4.1 mmol/L (3.5-5.1)
--- NOTE | 2019-09-08 07:55 | NUR ---
ASSUME CARE 1900. PT STABLE. BP RUNS SOFT SOMETIMES BUT STABLE. DENIES ANY PAIN AND TOLERATES ACTIVITY. PT IS UP STB ASSIST. POOR DESIRE AND MOTIVATION TO COMPLY WITH POST UP INSTRUCTIONS AND CARE. PT NEEDS MORE ENCOURAGEMENT WITH POST OP CARE. ASSESSMENT CHARTED. PROGRESSING MODERATELY TO POC. PLAN IS POSSIBLE DISCHARGE TO REHAB TODAY. WILL CONTINUE TO MONITOR AND FOLLOW WITH POC
[2019-09-08 08:05] VITALS: BP 109/60
[2019-09-08] MEDS ORDERED: FERREX 150 PLU1 EAC1 PO (08:20)
[2019-09-08] MEDS ORDERED: METOPROLOL SUCC50 MG PO (08:20)
[2019-09-08] MEDS ORDERED: ACIDOPHILUS1 EAC4 PO (08:20)
[2019-09-08 08:48] VITALS: BP 120/62
--- NOTE | 2019-09-08 10:26 | NUR ---
PT DISCHARGING TODAY TO [facility] FAXED DC ORDERS/SUMMARY TO FACILITY SPOKE WITH PATRIZIA IN ADM SHE RECEIVED ORDERS AND ARRANGED TRANSPORT BY [facility] FOR 1200 SHE NOTIFIED OF TRANSPORT TIME AND UNIT NOTIFIED CHART COPY PER US. RN TO CALL REPORT TO [phone].
--- NOTE | 2019-09-08 11:58 | NUR ---
REC CARE OF PT AT SHIFT CHANGE, A&0X4, AMB WITH CLOSE SBA/GAIT BELT/WALKER. APPEARS RESIGNED. ENCOURAGED WITH ORAL INTAKE WELL HYDRATION AND DEEP SLOW EFFECTIVE BREATHING. HE STATES, 'I KNOW'. HAD BM, VERY SOA. D/C SCHEDULED FOR 12N, IV AND TELE REMOVED WITHOUT ANY ILL EFFECTS. PT CHEERS UP A LITTLE SHIFT PROGRESSES AND EVEN BECAME HUMOROUS. HAD BM AND ASKED FOR VERY COLD WATER WHILE HE WAS SITTING ON THE TOILET. SEE SEPARATE INTERVENTIONS FOR ASSESSMENTS. WILL CALL REPORT TO [facility] WHEN ABLE
== END 2019-09-08 12:33 | DRG 235 ==
LOC: TBA 06:20 → ICU 06:20 → PRE 09:47 → EDSTATUS 10:10 → PRE 10:15 → OR 11:55 → ICU 13:33 → PRE 13:49 → 2N 09-04 17:22
PROVIDERS: Hospitalist; Nurse Practitioner; Physician Assistant; ADMIT Surgery Vascular Surgery
DX: I25.10 Atherosclerotic heart disease of native coronary artery without angina pectoris (principal); J96.01 Acute respiratory failure with hypoxia; E87.1 Hypo-osmolality and hyponatremia; D62 Acute posthemorrhagic anemia; I95.9 Hypotension, unspecified; I10 Essential (primary) hypertension; J44.9 Chronic obstructive pulmonary disease, unspecified; E87.6 Hypokalemia; D69.6 Thrombocytopenia, unspecified; D72.829 Elevated white blood cell count, unspecified; N28.9 Disorder of kidney and ureter, unspecified; R19.7 Diarrhea, unspecified; K21.9 Gastro-esophageal reflux disease without esophagitis; N40.0 Benign prostatic hyperplasia without lower urinary tract symptoms; Z87.01 Personal history of pneumonia (recurrent); Z87.891 Personal history of nicotine dependence; Z90.49 Acquired absence of other specified parts of digestive tract; Z90.89 Acquired absence of other organs; Z88.5 Allergy status to narcotic agent; Z88.0 Allergy status to penicillin; Z79.82 Long term (current) use of aspirin; Z79.899 Other long term (current) drug therapy
CPT/HCPCS: 10078; 10081; 47000; 47001; 47002; 47297; 48888; 50249; 50409; 50456; 50498; 50668; 51301; 52131; 52259; 52314; 53327; 53358; 54118; 56455; 56524; 56525; 56526; 56527; 56528; 56531; 56534; 56668; 56760; 56898; 57093; 57116; 57167; 62110; 62950; 65003; 65020; 65047; 65120; 65135

== ENCOUNTER 2019-09-29 16:40 | Inpatient (IN) | payer OTHER | END 2019-10-03 13:25 | disposition home or self-care (01) | DRG 812 | LOC: ER 16:40 → 2N 17:51 → 4W 10-01 10:03 → 4S 10-01 20:39 | PROVIDERS: ADMIT Hospitalist | PROC: 0DB78ZX Excision of Stomach, Pylorus, Via Natural or Artificial Opening Endoscopic, Diagnostic (ICD-10-PCS; principal; 2019-10-03) | PROC: 0DB98ZX Excision of Duodenum, Via Natural or Artificial Opening Endoscopic, Diagnostic (ICD-10-PCS; principal; 2019-10-03) | PROC: 0DBK8ZX Excision of Ascending Colon, Via Natural or Artificial Opening Endoscopic, Diagnostic (ICD-10-PCS; principal; 2019-10-03) | DX: D50.9 Iron deficiency anemia, unspecified (principal); N17.9 Acute kidney failure, unspecified; I47.1 Supraventricular tachycardia; I95.1 Orthostatic hypotension; K20.9 Esophagitis, unspecified; I25.10 Atherosclerotic heart disease of native coronary artery without angina pectoris; J44.9 Chronic obstructive pulmonary disease, unspecified; I10 Essential (primary) hypertension; E78.5 Hyperlipidemia, unspecified; K44.9 Diaphragmatic hernia without obstruction or gangrene; K21.9 Gastro-esophageal reflux disease without esophagitis; D12.2 Benign neoplasm of ascending colon; N40.0 Benign prostatic hyperplasia without lower urinary tract symptoms; K64.8 Other hemorrhoids; Z99.81 Dependence on supplemental oxygen; Z79.82 Long term (current) use of aspirin; Z90.89 Acquired absence of other organs; Z79.899 Other long term (current) drug therapy; Z87.891 Personal history of nicotine dependence; Z87.01 Personal history of pneumonia (recurrent); Z95.1 Presence of aortocoronary bypass graft; Z90.49 Acquired absence of other specified parts of digestive tract; Z88.5 Allergy status to narcotic agent; Z88.0 Allergy status to penicillin; Z03.818 Encounter for observation for suspected exposure to other biological agents ruled out ==

== ENCOUNTER 2019-10-18 10:20 | Emergency (ER) | payer OTHER ==
[~2019-10-18] VITALS: Ht 175.3 cm; Wt 63.2 kg
[~2019-10-18 10:20] MED LIST changes: +ACIDOPHILUS1 EAC4 PO; +FERREX 150 PLU1 EAC1 PO; +METOPROLOL SUCC50 MG PO
[2019-10-18 10:34] LABS: ABSOLUTE NEUTROPHILS 3.7 thou/uL (1.4-8.2); BASOPHILS 0.9 % (0.0-2.0); EOSINOPHILS 3.2 % (0.0-3.0); HEMATOCRIT 35.6 % (42.0-52.0); HEMOGLOBIN 12.1 gm/dL (14.0-18.0); MCH 31.8 pg (26.0-34.0); MCHC 33.9 g/dL (28.0-37.0); MCV 93.6 fL (80.0-100.0); MONOCYTES 6.9 % (1.0-8.0); PLATELET COUNT 230 thou/uL (150-400); RBC 3.81 mil/uL (4.50-6.00); RDW 15.1 % (10.5-14.5); WBC 7.7 thou/uL (4.0-11.0)
[2019-10-18 10:39] LABS: ANION GAP 8 mmol/L (7-16); BUN 21 mg/dL (7-18); CALCIUM 8.8 mg/dL (8.5-10.1); CHLORIDE 101 mmol/L (98-107); CO2 26 mmol/L (21-32); CREATININE 1.1 mg/dL (0.7-1.3); GLUCOSE 133 mg/dL (74-106); POTASSIUM 3.8 mmol/L (3.5-5.1); SODIUM 135 mmol/L (136-145)
[2019-10-18] MEDS ORDERED: LOPRESSOR50 MG PO (10:39)
[2019-10-18 10:49] LABS: ALBUMIN 3.5 g/dL (3.4-5.0); SGOT 19 U/L (15-37); SGPT 22 U/L (30-65); TOTAL BILIRUBIN 0.6 mg/dL (0.2-1.0); TOTAL PROTEIN 6.4 g/dL (6.4-8.2); TROPONIN-I <0.06 ng/mL (<0.06)
[2019-10-18 11:29] LABS: URINE BILIRUBIN NEGATIVE (Negative); URINE BLOOD NEGATIVE (Negative); URINE CLARITY CLEAR; URINE COLOR YELLOW; URINE GLUCOSE-RANDOM* NEGATIVE (Negative); URINE KETONES NEGATIVE (Negative); URINE LEUKOCYTES-REFLEX TRACE (Negative); URINE NITRITE-REFLEX NEGATIVE (Negative); URINE PROTEIN (DIPSTICK) TRACE (Negative); URINE SPECIFIC GRAVITY 1.015 (1.005-1.035); URINE UROBILINOGEN 0.2 E.U./dl (0.2-1.0)
--- NOTE | 2019-10-18 12:41 | EKG ---
[facility] [place] [address] ELECTROCARDIOGRAM REPORT Name: KARLENE MOSS Kim Room #: REG [facility].#: [id number] Admission: 10/18/19 Attend Phys: Discharge: Date of : 40 Report #: [id number] THIS REPORT FOR: cc: Shelley Gaona MD, Cora A. MD Couchonnal, Luis F. MD ~ THIS REPORT FOR: //name// [facility] ED Test Date: 2019-10-18 Test Time: 10:18:44 Pat Name: KARLENE MOSS Department: Room: Gender: Salvage Cutter: FILEMON : 1940 Requested By: Darrell Kohler Order Number: [id number] MD: Jesus Michaud Measurements Intervals [place] Rate: 67 P: 79 [place]: 121 QRS: -47 QRSD: 104 T: 84 QT: 453 QTc: 479 Interpretive Statements Sinus rhythm Short [place] Compared to ECG 09/29/2019 16:51:51 T-wave abnormality no longer present Electronically Signed On 10-18-2019 12:40:14 CDT by Jesus Michaud [email or web address] <ELECTRONICALLY SIGNED> By: Jesus Michaud MD 10/18/19 1240 1018 1018 Jesus Michaud MD /EPI
[2019-10-18] MEDS ORDERED: MAG-OXIDE400 MG PO (12:55)
[2019-10-18 12:57] VITALS: BP 126/55
== END 2019-10-18 12:57 | disposition home or self-care (01) ==
LOC: ER 10:20
PROVIDERS: Emergency Medicine
DX: I95.1 Orthostatic hypotension (principal); E83.42 Hypomagnesemia; R11.2 Nausea with vomiting, unspecified; M54.2 Cervicalgia; J44.9 Chronic obstructive pulmonary disease, unspecified; K21.9 Gastro-esophageal reflux disease without esophagitis; E78.5 Hyperlipidemia, unspecified; I10 Essential (primary) hypertension; F17.210 Nicotine dependence, cigarettes, uncomplicated; Z98.61 Coronary angioplasty status; Z88.5 Allergy status to narcotic agent; Z88.0 Allergy status to penicillin; Z79.899 Other long term (current) drug therapy; Z79.82 Long term (current) use of aspirin; Z90.49 Acquired absence of other specified parts of digestive tract

== ENCOUNTER → 2019-10-26 | Outpatient (CLI) | payer OTHER ==
[~2019-10-26] MED LIST changes: +MAG-OXIDE400 MG PO
== END ==
LOC: SJCVC 13:48
PROVIDERS: ATTEND Internal Medicine Cardiovascular Disease
DX: R00.2 Palpitations (principal); I25.10 Atherosclerotic heart disease of native coronary artery without angina pectoris; I10 Essential (primary) hypertension; J44.9 Chronic obstructive pulmonary disease, unspecified; K21.9 Gastro-esophageal reflux disease without esophagitis; I25.810 Atherosclerosis of coronary artery bypass graft(s) without angina pectoris; E78.00 Pure hypercholesterolemia, unspecified; M85.80 Other specified disorders of bone density and structure, unspecified site; M81.0 Age-related osteoporosis without current pathological fracture; Z95.1 Presence of aortocoronary bypass graft; Z82.49 Family history of ischemic heart disease and other diseases of the circulatory system; Z87.891 Personal history of nicotine dependence; Z79.899 Other long term (current) drug therapy; Z79.82 Long term (current) use of aspirin

== ENCOUNTER 2019-11-14 11:55 | Emergency (ER) | payer OTHER ==
[~2019-11-14] VITALS: Ht 177.8 cm; Wt 64.0 kg
[2019-11-14 12:29] LABS: ABSOLUTE NEUTROPHILS 4.8 thou/uL (1.4-8.2); BASOPHILS 0.9 % (0.0-2.0); EOSINOPHILS 5.3 % (0.0-3.0); HEMATOCRIT 40.3 % (42.0-52.0); HEMOGLOBIN 13.4 gm/dL (14.0-18.0); LYMPHOCYTES 22.4 % (24.0-44.0); MCH 30.6 pg (26.0-34.0); MCHC 33.3 g/dL (28.0-37.0); MCV 91.8 fL (80.0-100.0); MONOCYTES 9.5 % (1.0-8.0); PLATELET COUNT 234 thou/uL (150-400); POLYS 61.9 % (36.0-66.0); RBC 4.39 mil/uL (4.50-6.00); RDW 14.5 % (10.5-14.5); WBC 7.8 thou/uL (4.0-11.0)
[2019-11-14 12:36] LABS: ANION GAP 10 mmol/L (7-16); BUN 24 mg/dL (7-18); CALCIUM 9.4 mg/dL (8.5-10.1); CHLORIDE 100 mmol/L (98-107); CO2 25 mmol/L (21-32); CREATININE 1.1 mg/dL (0.7-1.3); GLUCOSE 121 mg/dL (74-106); POTASSIUM 3.6 mmol/L (3.5-5.1); SODIUM 135 mmol/L (136-145)
[2019-11-14 12:47] LABS: DIRECT BILIRUBIN 0.1 mg/dL (<0.1-0.2); MAGNESIUM 1.9 mg/dL (1.8-2.4); SGOT 16 U/L (15-37); SGPT 17 U/L (30-65); TOTAL BILIRUBIN 0.5 mg/dL (0.2-1.0); TROPONIN-I <0.06 ng/mL (<0.06)
[2019-11-14 14:11] LABS: URINE BILIRUBIN NEGATIVE (Negative); URINE BLOOD TRACE (Negative); URINE CLARITY CLEAR; URINE COLOR YELLOW; URINE GLUCOSE-RANDOM* NEGATIVE (Negative); URINE KETONES TRACE (Negative); URINE LEUKOCYTES-REFLEX NEGATIVE (Negative); URINE NITRITE-REFLEX NEGATIVE (Negative); URINE PROTEIN (DIPSTICK) TRACE (Negative); URINE SPECIFIC GRAVITY >= 1.030 (1.005-1.035); URINE UROBILINOGEN 0.2 E.U./dl (0.2-1.0)
[2019-11-14 16:34] VITALS: BP 143/67
--- NOTE | 2019-11-14 16:42 | EKG ---
[facility] [place] [address] ELECTROCARDIOGRAM REPORT Name: KARLENE MOSS Room #: REG [facility].#: [id number] Admission: 11/14/19 Attend Phys: Discharge: Date of : 40 Report #: [id number] THIS REPORT FOR: cc: Shelley Gaona MD, Cora A. MD [place], Craig H. MD [facility] ~ THIS REPORT FOR: //name// [facility] ED Test Date: 2019-11-14 Test Time: 12:04:23 Pat Name: KARLENE MOSS Department: Room: Gender: Engineering Specialist: RUSS : 1940 Requested By: Leobardo Hubbard Order Number: [id number] MD: Juan Andrews Measurements Intervals [place] Rate: 121 P: 45 [place]: 86 QRS: -23 QRSD: 92 T: 102 QT: 311 QTc: 442 Interpretive Statements Sinus tachycardia Inferior-posterior infarct, old Repol abnrm suggests ischemia, diffuse leads Compared to ECG 10/18/2019 10:18:44 ST segment abnormality is more pronounced Electronically Signed On 11-14-2019 16:41:55 CDT by Juan Andrews [email or web address] <ELECTRONICALLY SIGNED> By: Juan Andrews MD, [facility] 11/14/19 1641 1204 1204 Juan Andrews MD, [facility] /EPI
== END 2019-11-14 16:34 | disposition home or self-care (01) ==
LOC: ER 11:55
PROVIDERS: Emergency Medicine
DX: R00.0 Tachycardia, unspecified (principal); R53.1 Weakness; I10 Essential (primary) hypertension; J44.9 Chronic obstructive pulmonary disease, unspecified; E78.5 Hyperlipidemia, unspecified; K21.9 Gastro-esophageal reflux disease without esophagitis; F17.210 Nicotine dependence, cigarettes, uncomplicated; Z20.828 Contact with and (suspected) exposure to other viral communicable diseases; Z90.49 Acquired absence of other specified parts of digestive tract; Z79.899 Other long term (current) drug therapy; Z88.5 Allergy status to narcotic agent; Z88.0 Allergy status to penicillin

== ENCOUNTER → 2019-12-04 | Outpatient (CLI) | payer OTHER | LOC: SJCVCIMAG 12:53 → SJCVC 12:53 | PROVIDERS: ATTEND Internal Medicine Cardiovascular Disease | DX: R00.0 Tachycardia, unspecified (principal); R94.31 Abnormal electrocardiogram [ECG] [EKG]; I25.810 Atherosclerosis of coronary artery bypass graft(s) without angina pectoris; I10 Essential (primary) hypertension; J44.9 Chronic obstructive pulmonary disease, unspecified; K21.9 Gastro-esophageal reflux disease without esophagitis; M85.80 Other specified disorders of bone density and structure, unspecified site; M81.0 Age-related osteoporosis without current pathological fracture; Z95.1 Presence of aortocoronary bypass graft; Z82.49 Family history of ischemic heart disease and other diseases of the circulatory system; Z87.891 Personal history of nicotine dependence; Z79.82 Long term (current) use of aspirin; Z79.899 Other long term (current) drug therapy ==

== ENCOUNTER → 2019-12-29 | Outpatient (CLI) | payer OTHER | LOC: SJCVC 14:38 | PROVIDERS: ATTEND Internal Medicine Cardiovascular Disease | DX: R94.31 Abnormal electrocardiogram [ECG] [EKG] (principal); R00.1 Bradycardia, unspecified; I25.119 Atherosclerotic heart disease of native coronary artery with unspecified angina pectoris; E78.00 Pure hypercholesterolemia, unspecified; I47.1 Supraventricular tachycardia; Z79.899 Other long term (current) drug therapy ==

== ENCOUNTER → 2020-01-19 | Outpatient (CLI) | payer OTHER | LOC: SJCVC 12:51 | PROVIDERS: ATTEND Internal Medicine Cardiovascular Disease | DX: I21.19 ST elevation (STEMI) myocardial infarction involving other coronary artery of inferior wall (principal); I47.1 Supraventricular tachycardia; I25.119 Atherosclerotic heart disease of native coronary artery with unspecified angina pectoris; E78.00 Pure hypercholesterolemia, unspecified; I25.10 Atherosclerotic heart disease of native coronary artery without angina pectoris; R94.31 Abnormal electrocardiogram [ECG] [EKG]; Z95.1 Presence of aortocoronary bypass graft; Z79.899 Other long term (current) drug therapy; Z90.49 Acquired absence of other specified parts of digestive tract ==

== ENCOUNTER 2020-06-28 11:04 | Inpatient (IN) | payer OTHER ==
[~2020-06-28] VITALS: Ht 177.8 cm; Wt 72.1 kg
[2020-06-28 11:04] VITALS: BP 135/85
[2020-06-28 11:26] LABS: ABSOLUTE NEUTROPHILS 6.6 thou/uL (1.4-8.2); BASOPHILS 0.5 % (0.0-2.0); EOSINOPHILS 1.8 % (0.0-3.0); HEMATOCRIT 39.6 % (42.0-52.0); HEMOGLOBIN 13.5 gm/dL (14.0-18.0); MCH 30.9 pg (26.0-34.0); MCV 90.6 fL (80.0-100.0); MONOCYTES 6.8 % (1.0-8.0); PLATELET COUNT 218 thou/uL (150-400); POLYS 67.9 % (36.0-66.0); RBC 4.37 mil/uL (4.50-6.00); RDW 13.1 % (10.5-14.5); WBC 9.7 thou/uL (4.0-11.0)
[2020-06-28 11:35] LABS: CALCIUM 9.7 mg/dL (8.5-10.1); CREATININE 1.2 mg/dL (0.7-1.3); POTASSIUM 3.6 mmol/L (3.5-5.1)
[2020-06-28 11:41] LABS: ALBUMIN 3.8 g/dL (3.4-5.0); DIRECT BILIRUBIN 0.1 mg/dL (<0.1-0.2); TOTAL BILIRUBIN 0.6 mg/dL (0.2-1.0); TOTAL PROTEIN 7.1 g/dL (6.4-8.2)
[2020-06-28 12:43] LABS: URINE BILIRUBIN NEGATIVE (Negative); URINE BLOOD TRACE (Negative); URINE CLARITY CLEAR; URINE COLOR YELLOW; URINE GLUCOSE-RANDOM* NEGATIVE (Negative); URINE KETONES NEGATIVE (Negative); URINE LEUKOCYTES-REFLEX TRACE (Negative); URINE NITRITE-REFLEX NEGATIVE (Negative); URINE PROTEIN (DIPSTICK) NEGATIVE (Negative); URINE SPECIFIC GRAVITY 1.025 (1.005-1.035); URINE UROBILINOGEN 0.2 E.U./dl (0.2-1.0)
--- NOTE | 2020-06-28 13:01 | EKG ---
[address] [place] [address] ELECTROCARDIOGRAM REPORT Name: KARLENE MOSS [id number] Admission: 06/28/20 Attend Phys: Discharge: Date of : 40 Report #: [id number] [facility] ED Test Date: 2020-06-28 Test Time: 11:11:08 Pat Name: KARLENE MOSS Department: Room: Gender: M Home Appliance Technician: PAUL : 1940 Requested By: Darrian Mcelroy Order Number: [id number] MD: Jesus Michaud Measurements Intervals [place] Rate: 126 P: [place]: QRS: -26 QRSD: 89 T: 108 QT: 303 QTc: 439 Interpretive Statements Sinus tachycardia Abnormal R-wave progression, early transition Compared to ECG 11/14/2019 12:04:23 Electronically Signed On 06-28-2020 13:01:22 BROADCAST PROGRAM DIRECTOR by Jesus Michaud [email or web address] <ELECTRONICALLY SIGNED> By: Jesus Michaud MD 06/28/20 1301 1111 Brian Michaud MD /RACHELE
--- NOTE | 2020-06-28 14:36 | NUR ---
VERBAL CONSENT OBTAINED FROM PT PRIOR TO SPEAKING WITH SPOUSE AVERY MOSS ([phone]). LAB RESULTS DISCUSSED, SPOUSE MADE AWARE ABD CT RESULTS IS STILL PENDING AT THIS TIME LIKEWISE COVID RESULT. MESSAGE FROM SPOUSE RELAYED TO PT.
[2020-06-28 18:15] VITALS: BP 105/49
[2020-06-28 18:22] VITALS: BP 105/49
[2020-06-28 18:33] VITALS: BP 125/76
--- NOTE | 2020-06-28 18:55 | NUR ---
UNABLE TO REACH NURSING FOR ROOM 455 TAKING THIS PATIENT ESCOURTED PATIENT TO ROOM, STAYED WITH PATIENT UNTIL NURSE RONALD PAGE TOOK OVER CARE FOR PATIENT. PROVIDED BEDSIDE REPORT.
[2020-06-28] MEDS ORDERED: MELATONIN3 M2 (19:53)
[2020-06-28 20:15] VITALS: BP 154/87
--- NOTE | 2020-06-28 22:07 | NUR ---
PT ADMITTED TO THE UNIT AT APPROXIMATELY 1900. PT IS A/O X4 AND IS UP WITH SBA WITH A WALKER AND GB. WILL USE A URINAL AT THE BEDSIDE. ROOM AIR CURRENTLY WITH NO C/O SOA. NO COMPLAINTS OF ABDOMINAL PAIN AT THIS TIME. ADMISSION IS COMPLETE AND PT HAS BEEN EDUCATED ON THE USE OF THE CALL LIGHT. HAS BEEN ABLE TO CALL APPROPRIATELY. FALL PRECAUTIONS IMPLEMENTED, CALL LIGHT IS WITHIN REACH. ST ON THE MONITOR. NPO. VSS. AFEBRILE.
[2020-06-29 08:30] VITALS: BP 116/61
[2020-06-29 17:57] VITALS: BP 101/59
--- NOTE | 2020-06-29 18:50 | NUR ---
Patient complains pain in abdomen in the morning, pain medicaiton given and worked. no nausea or vomtting, tolerated medication with sip water after the permission from Dr. Rojas to give medication with sip water. Tolerated NPO.
[2020-06-29 20:13] VITALS: BP 105/51
--- NOTE | 2020-06-30 03:12 | NUR ---
Assumed pt care at 1900. A/OX4,VSS. C/o abd pain 09/09 medicated with Tylenol per EMAR w/relief reported. KUB showed pt still has partial SBO,passing flatus on and off;denies N/V,NPO. Sonal CAVING GUIDE notified about pt's status,order for 1L NS @ 75ML/hr written. Pt voiding per urinal. Fall precautions in place,reminded to call for help as needed.
[2020-06-30 08:16] VITALS: BP 112/49
[2020-06-30 10:51] LABS: HEMATOCRIT 32.8 % (42.0-52.0); MCH 30.7 pg (26.0-34.0); MCHC 33.4 g/dL (28.0-37.0); RBC 3.57 mil/uL (4.50-6.00); RDW 13.5 % (10.5-14.5); WBC 7.8 thou/uL (4.0-11.0)
[2020-06-30 11:06] LABS: CALCIUM 8.2 mg/dL (8.5-10.1); CREATININE 1.1 mg/dL (0.7-1.3); MAGNESIUM 1.4 mg/dL (1.8-2.4); POTASSIUM 3.6 mmol/L (3.5-5.1)
--- NOTE | 2020-06-30 13:38 | EKG ---
[address] [place] [address] ELECTROCARDIOGRAM REPORT Name: KARLENE MOSS Room #: 455-P ADM IN M.R.#: [id number] Admission: 06/28/20 Attend Phys: Clemente Rojas MD Discharge: Date of : 40 Report #: [id number] [facility] ED Test Date: 2020-06-28 Test Time: 13:39:00 Pat Name: KARLENE MOSS Department: Room: [facility] Gender: M Program Support Clerk: KATRIN : 1940 Requested By: Darrian Mcelroy Order Number: [id number] MD: Juan Andrews Measurements Intervals [place] Rate: 90 P: 67 VA: 121 QRS: -35 QRSD: 105 T: 79 QT: 381 QTc: 467 Interpretive Statements Sinus rhythm Ventricular premature complex Abnormal R-wave progression, early transition Inferior infarct, old Compared to ECG 06/28/2020 11:11:08 Ventricular premature complex(es) now present Sinus tachycardia no longer present Electronically Signed On 06-30-2020 13:37:51 COMPLIANCE SPECIALIST by Juan Andrews [email or web address] <ELECTRONICALLY SIGNED> By: Juan Andrews MD, [facility] 06/30/20 1337 1339 1339 Juan Andrews MD, [facility] /EPI
[2020-06-30 15:35] VITALS: BP 138/70
--- NOTE | 2020-06-30 18:01 | NUR ---
ASSUMED CARE OF PATIENT AT SHIFT CHNAGE. ASSESSMENT CHARTED. MEDICATIONS ADMINISTERED PER EMAR. VSS. PATIENT IS A&OX4 AND ABLE TO MAKE NEEDS KNOWN. KUB THIS DAY 06/30; FINDINGS INDICATED GAS BUILDUP. PATIENT IS ACTIVELY PASSING FLATUS THROUGHOUT SHIT. PROVIDER PAGED FOR NEW DIET ORDER. PATIENT RESTED MOST OF SIFT. ONLY NEEDS VOICED CONCERNED WANTING TO DRINK/EAT. FALL PRECAUTIONS REMIAIN IN POLACE. WILL CONTINUE TO MONITOR AND ENDORSE TO NOC RN
[2020-06-30 18:54] VITALS: BP 140/59
--- NOTE | 2020-06-30 20:32 | NUR ---
DIET ORDER REMAINS NPO. PATIENTS KUB FINDINGS INDICATED ONLY GAS BUILDUP. HOSPITALIST PAGED AND TEXTED VIA PRX. SUPERVISOR TUNNEL HEADING NOTIFIED AT 2022. VM LEFT. AWAITING RESPONSE
--- NOTE | 2020-07-01 04:43 | NUR ---
Pt. rested quietly during the night when checked on during frequent rounds. He was given po tylenol for c/o pain to his neck (see emar) with some relief noted. No c/o nausea. Bed alarm is on.
[2020-07-01 08:04] VITALS: BP 141/73
--- NOTE | 2020-07-01 13:45 | NUR ---
PT ADMITTED RELATED TO TACHYCARDIA, ABD PAIN, PYSPNEA, PARTIAL SBO. CM REVIEWED CHART AND SPOKE WITH CARE TEAM. CM CALLED AND SPOKE WITH PT OVER THE PHONE THIS DAY. PT INDICATED HE RESIDES IN A HOUSE WITH HIS SPOUSE WITH NO STEPS TO ENTER AND NO STEPS INSIDE. HE INIDCATED THAT HE HAS A FWW, CANE, AND WC FOR HOME USE. 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 PT INDICATED HAD [facility] IN PAST AND BEEN TO [facility]. AGREEABLE WITH HH SERVICES UPON DC. PT TO HAVE A KUB THIS DAY POSSIBLE DC AFTER. REFERRAL SENT TO [facility] FOR REVIEW. CM TO FOLLOW INDICATED WITH DC PLANNING.
[2020-07-01] MEDS ORDERED: METRONIDAZOLE500 M4 PO (14:02)
[2020-07-01] MEDS ORDERED: LEVOFLOXACIN500 MG PO (14:02)
--- NOTE | 2020-07-01 14:16 | NUR ---
PATIENT ALERT AND ORIENTED. VOICES NO CONCERNS BUT VERY ANXIOUS TO EAT FOOD AND GO HOME. STATES HE FEELS GOOD WITH NO PAIN OR DISCOMFORT. PASSING GAS AND REPORTED 2 BOWEL MOVEMENTS OVER NIGHT. AMBULATED AROUND UNIT TWICE TODAY. TOLERATED HIS LUNCH. NOTED KUB FROM TODAY. PLAN TO DISCHARGE THIS AFTERNOON ONCE ORDERS ARE IN AND RIDE IS AVAILABLE. PATIENT SON TO TOP KNITTER. PATIENT WILL GO HOME WITH HOME HEALTH.
[2020-07-01 15:14] VITALS: BP 141/73
[2020-07-01 17:13] VITALS: BP 138/59
[2020-07-01 17:15] VITALS: BP 141/73
--- NOTE | 2020-07-01 18:39 | NUR ---
DISCHARGE EDUCATION REVIEWED WITH PATIENT. PATIENT DENIES ANY QUESTIONS OR CONCERNS. SCRIPTS SENT TO PHARMACY. IV DISCONTINUED. TELE MONITOR OFF. PATIENT LEFT FACILITY TRANSPORTED BY SON. ALL BELONGINGS SENT WITH PATIENT AND AWARE OF FOLLOW UP APPOINTMENTS.
== END 2020-07-01 17:52 | disposition home health service (06) | DRG 389 ==
LOC: ER 11:04 → 4W 16:17 → EROBS 16:17 → 4W 19:20
PROVIDERS: Nurse Practitioner; ADMIT Internal Medicine; ATTEND Internal Medicine
DX: K56.600 Partial intestinal obstruction, unspecified as to cause (principal); I48.20 Chronic atrial fibrillation, unspecified; K52.9 Noninfective gastroenteritis and colitis, unspecified; K21.9 Gastro-esophageal reflux disease without esophagitis; E78.5 Hyperlipidemia, unspecified; I10 Essential (primary) hypertension; N40.0 Benign prostatic hyperplasia without lower urinary tract symptoms; I25.10 Atherosclerotic heart disease of native coronary artery without angina pectoris; R53.81 Other malaise; G31.84 Mild cognitive impairment of uncertain or unknown etiology; D50.9 Iron deficiency anemia, unspecified; N20.0 Calculus of kidney; K44.9 Diaphragmatic hernia without obstruction or gangrene; J44.9 Chronic obstructive pulmonary disease, unspecified; Z20.822 Contact with and (suspected) exposure to COVID-19; Z79.82 Long term (current) use of aspirin; Z79.899 Other long term (current) drug therapy; Z90.49 Acquired absence of other specified parts of digestive tract; Z88.5 Allergy status to narcotic agent; Z88.0 Allergy status to penicillin; Z87.891 Personal history of nicotine dependence
CPT/HCPCS: 10045

== ENCOUNTER → 2020-08-02 | Outpatient (CLI) | payer OTHER ==
[~2020-08-02] MED LIST changes: +LEVOFLOXACIN500 MG PO; +MELATONIN3 M2; +METRONIDAZOLE500 M4 PO
== END ==
LOC: SJCVC 13:48
PROVIDERS: ATTEND Internal Medicine Cardiovascular Disease
DX: R00.0 Tachycardia, unspecified (principal); I49.1 Atrial premature depolarization; I10 Essential (primary) hypertension; I25.10 Atherosclerotic heart disease of native coronary artery without angina pectoris; E78.00 Pure hypercholesterolemia, unspecified; R42 Dizziness and giddiness; L57.0 Actinic keratosis; J40 Bronchitis, not specified as acute or chronic; J44.9 Chronic obstructive pulmonary disease, unspecified; K21.9 Gastro-esophageal reflux disease without esophagitis; M85.80 Other specified disorders of bone density and structure, unspecified site; M81.0 Age-related osteoporosis without current pathological fracture; I47.1 Supraventricular tachycardia; Z88.5 Allergy status to narcotic agent; Z88.0 Allergy status to penicillin; Z79.82 Long term (current) use of aspirin; Z79.899 Other long term (current) drug therapy; Z87.891 Personal history of nicotine dependence; Z72.0 Tobacco use

== ENCOUNTER → 2021-02-13 | Outpatient (CLI) | payer OTHER | LOC: SJCVCIMAG 09:50 | PROVIDERS: ATTEND Internal Medicine Cardiovascular Disease | DX: I25.10 Atherosclerotic heart disease of native coronary artery without angina pectoris (principal); I10 Essential (primary) hypertension; E78.00 Pure hypercholesterolemia, unspecified; R42 Dizziness and giddiness; Z88.0 Allergy status to penicillin; Z88.5 Allergy status to narcotic agent; Z88.8 Allergy status to other drugs, medicaments and biological substances; Z79.899 Other long term (current) drug therapy ==

== ENCOUNTER 2021-02-24 16:58 | Emergency (ER) | payer OTHER ==
[~2021-02-24] VITALS: Ht 177.8 cm; Wt 85.3 kg
[2021-02-24 17:23] LABS: BASOPHILS 1.3 % (0.0-2.0); EOSINOPHILS 18.2 % (0.0-3.0); HEMATOCRIT 39.8 % (42.0-52.0); HEMOGLOBIN 13.6 gm/dL (14.0-18.0); LYMPHOCYTES 33.3 % (24.0-44.0); MCH 30.9 pg (26.0-34.0); MCV 90.9 fL (80.0-100.0); MONOCYTES 7.5 % (1.0-8.0); PLATELET COUNT 249 thou/uL (150-400); POLYS 39.7 % (36.0-66.0); RBC 4.38 mil/uL (4.50-6.00); RDW 14.1 % (10.5-14.5)
[2021-02-24 17:31] LABS: CREATININE 1.1 mg/dL (0.7-1.3); POTASSIUM 3.8 mmol/L (3.5-5.1)
[2021-02-24] MEDS ORDERED: PREDNISONE 20 M20 MG PO ×2 (19:25→19:50)
[2021-02-24] MEDS ORDERED: AZITHROMYCIN 2250 MG PO (19:25)
[2021-02-24 19:48] VITALS: BP 155/75
[2021-02-24] MEDS ORDERED: ZPAK PO (19:50)
--- NOTE | 2021-02-25 07:16 | EKG ---
[address] [place] [address] ELECTROCARDIOGRAM REPORT Name: KARLENE MOSS Kim [id number] Admission: 02/24/21 Attend Phys: Discharge: 02/24/21 Date of : 40 Report #: [id number] [facility] ED Test Date: 2021-02-24 Test Time: 18:26:35 Pat Name: KARLENE MOSS Department: Room: Gender: M Clinical Educator: : 1940 Requested By: Hernandez Ozuna Order Number: [id number] MD: Kenny Townsend Measurements Intervals [place] Rate: 79 P: 62 GA: 124 QRS: -32 QRSD: 106 T: 58 QT: 397 QTc: 456 Interpretive Statements Sinus rhythm Atrial premature complexes Vent pre-excitat'n(WPW) Compared to ECG 06/28/2020 13:39:00 Atrial premature complex(es) now present Ventricular premature complex(es) no longer present Myocardial infarct finding no longer present Electronically Signed On 02-25-2021 7:16:22 CDT by Kenny Townsend [email or web address] <ELECTRONICALLY SIGNED> By: Kenny Townsend MD, FACC 02/25/21 0716 25 25 Kenny Townsend MD, FAC /EPI
== END 2021-02-24 20:03 | disposition home or self-care (01) ==
LOC: ER 16:58
PROVIDERS: Emergency Medicine
DX: J44.9 Chronic obstructive pulmonary disease, unspecified (principal); K21.9 Gastro-esophageal reflux disease without esophagitis; E78.5 Hyperlipidemia, unspecified; F17.210 Nicotine dependence, cigarettes, uncomplicated; I10 Essential (primary) hypertension; Z79.82 Long term (current) use of aspirin; Z90.49 Acquired absence of other specified parts of digestive tract; Z79.899 Other long term (current) drug therapy; Z88.0 Allergy status to penicillin; Z88.5 Allergy status to narcotic agent

== ENCOUNTER 2021-03-10 03:49 | Inpatient (IN) | payer OTHER ==
[~2021-03-10] VITALS: Ht 177.8 cm; Wt 66.8 kg
--- NOTE | ~2021-03-10 | EMS ---
[address] [address] EMS Patient Care Report Name: KARLENE MOSS Room #: PRE M.R.#: [id number] Admission: Attend Phys: Discharge: Date of : 40 Report #: [id number] THIS REPORT FOR: //name// Report Transmitted: 03/10/2021 03:28 EMS Care Summary [place], [place]/[facility] Incident [id number] @ 03/10/2021 03:17 Incident Location [address] [place] [address] Patient KARLENE MOSS Male, 80 Years 1940 Patient Address [address] [place] [address] Patient History Chronic Obstructive Pulmonary Disease (COPD),Cardiac Condition - Other,Diverticulitis, Patient Allergies Penicillin allergy,Morphine, Patient Medications Gabapentin, Diltiazem, Anoro, Finasteride, Tamsulosin, Omeprazole, Prednisone, Chief Complaint ABD PAIN W. N/V Disposition Transported No Lights/[place] Dis[place] Reason Abdominal Pain/Problems Transported To [facility] Narrative UPON ARRIVAL PT SITTING UPRIGHT ON COUCH CONSCIOUS AND ALERT. PT BEGAN HAVING ABD PAIN AT MIDNIGHT THAT WOKE HIM UP THEN AROUND 0100 HE BEGAN THROWING UP AND HASN'T STOPPED SINCE THEN. PAIN IN THE MIDDLE OF THE ABD. [place] [address] EMS Patient Care Report Name: KARLENE MOSS Room #: [facility] M.R.#: [id number] Admission: Attend Phys: Discharge: Date of : 40 Report #: [id number] SIMILIAR TO LAST TIME HE WAS FOUND TO HAVE DIVERTICULITIS. PT ASSISTED TO COT AND LOADED. Initial Vitals @03:35P: 131,SpO2: 96, @03:37P: 134, @03:30P: 144,R: 20,BP: 107/65,Pain: 4/10,GCS: 15,Glucose: 168,SpO2: 96,Revised Trauma: 12, @03:43P: 127,R: 16,BP: 137/76,GCS: 15,SpO2: 93,Revised Trauma: 12, Assessments @03:24MENTAL:Event Oriented,Place Oriented,Person Oriented,Time Oriented,SKIN:HEENT:Head/Face: No Abnormalities,Neck/Airway: No Abnormalities,LUNG SOUNDS:General: Nausea,General: Vomiting,ABDOMEN:General: Nausea,General: Vomiting,PELVIS//GI:EXTREMITIES:Left Arm: No Abnormalities,Right Arm: No Abnormalities,Left Leg: No Abnormalities,Right Leg: No Abnormalities,PULSE:Radial: 2+ Normal,NEURO:No Abnormalities, Impression Abdominal Pain Procedures @03:24 ALS Assessment Response: UnchangedSucceeded @03:30 IV Therapy - Saline Lock 10cc (18 ga) Site: Antecubital-Left Response: UnchangedSucceeded @03:32 Zofran - 4 Milligrams (mg) - Intravenous (IV) Response: Improved @03:32 3-Lead ECG Response: UnchangedSucceeded Timeline 03:15,Call Received 03:15,Dispatch Notified 03:17,Dispatched 03:18,En Route 03:22,On Scene 03:23,At Patient 03:24,ALS Assessment,Response: UnchangedSucceeded, 03:30,BP: 107/65 M,PULSE: 144,RR: 20 R,SPO2: 96 Ox,ETCO2: ,B,PAIN: 4,GCS: 15, 03:30,IV Therapy - Saline Lock 10cc 18 ga Site: Antecubital-Left,Response: UnchangedSucceeded, 03:32,Zofran - 4 Milligrams (mg) - Intravenous (IV),Response: Improved 03:32,Depart Scene 03:32,3-Lead ECG,Response: UnchangedSucceeded, 03:35,BP: / M,PULSE: 131,RR: R,SPO2: 96 Ox,ETCO2: ,BG: ,PAIN: ,GCS: , 03:37,BP: / M,PULSE: 134,RR: R,SPO2: Ox,ETCO2: ,BG: ,PAIN: ,GCS: , [facility] [address] [place] [address] EMS Patient Care Report Name: KARLENE MOSS Room #: [facility] M.R.#: [id number] Admission: Attend Phys: Discharge: Date of : 40 Report #: [id number] 03:43,BP: 137/76 M,PULSE: 127,RR: 16 R,SPO2: 93 Ox,ETCO2: ,BG: ,PAIN: ,GCS: 15, 03:45,At Destination 04:02,Call Closed Disclaimer v1.1 Copyright 2020 [employer] This EMS Care Summary contains data elements from the applicable legal record (which may be displayed differently). It is designed to provide pertinent information for the following purposes: continuity of care, clinical quality, and state data reporting. The complete legal record is available to ED staff and administrators of the receiving hospital in [employer] Patient Tracker. All data is provided "as is."
[~2021-03-10 03:49] MED LIST changes: +AZITHROMYCIN 2250 MG PO; +ZPAK PO
[2021-03-10 03:50] VITALS: BP 133/72
[2021-03-10 04:17] LABS: HEMATOCRIT 42.7 % (42.0-52.0); MCH 30.3 pg (26.0-34.0); MCHC 32.9 g/dL (28.0-37.0); MCV 92.1 fL (80.0-100.0); PLATELET COUNT 218 thou/uL (150-400); RBC 4.64 mil/uL (4.50-6.00); RDW 15.1 % (10.5-14.5); WBC 31.4 thou/uL (4.0-11.0)
[2021-03-10 04:21] LABS: CALCIUM 9.2 mg/dL (8.5-10.1); CREATININE 1.1 mg/dL (0.7-1.3); POTASSIUM 3.6 mmol/L (3.5-5.1)
[2021-03-10 04:22] LABS: URINE BILIRUBIN NEGATIVE (Negative); URINE BLOOD TRACE (Negative); URINE CLARITY CLEAR; URINE COLOR YELLOW; URINE GLUCOSE-RANDOM* NEGATIVE (Negative); URINE KETONES NEGATIVE (Negative); URINE LEUKOCYTES-REFLEX NEGATIVE (Negative); URINE NITRITE-REFLEX NEGATIVE (Negative); URINE PROTEIN (DIPSTICK) 1+ (Negative); URINE SPECIFIC GRAVITY 1.025 (1.005-1.035); URINE UROBILINOGEN 0.2 E.U./dl (0.2-1.0)
[2021-03-10 04:27] LABS: ALBUMIN 3.4 g/dL (3.4-5.0); TOTAL BILIRUBIN 0.4 mg/dL (0.2-1.0); TOTAL PROTEIN 6.7 g/dL (6.4-8.2)
[2021-03-10 04:33] LABS: HYALINE CASTS 0-3 Few /LPF (None Seen); MUCUS 0-3 Light strn/LPF (None Seen); RENAL EPITHELIAL CELLS 0-3 Few /LPF (None Seen); SQUAMOUS None Seen /LPF (0-3); TRANSITIONAL EPITHEL CELL 0-3 Few /LPF (None Seen)
[2021-03-10 04:34] LABS: BACTERIA-REFLEX None Seen /HPF (None Seen); CRYSTALS None Seen /LPF (None Seen); URINE RBC 1-2 Rare /HPF (NONE SEEN); URINE WBC-REFLEX None Seen /HPF (0-5)
[2021-03-10 04:52] LABS: ABSOLUTE NEUTROPHILS 29.2 thou/uL (1.4-8.2)
[2021-03-10] MEDS ORDERED: NEURONTIN100 MG PO (06:31)
[2021-03-10] MEDS ORDERED: DILTIAZEM ER180 M2 PO (06:32)
[2021-03-10] MEDS ORDERED: PREDNISONE 10 M10 M1 PO (06:33)
[2021-03-10] MEDS ORDERED: EZALLOR SPRINKL10 MG PO (06:33)
--- NOTE | 2021-03-10 07:16 | NUR ---
DO, PT'S CALLS FOR UPDATE ON PT, PT VERBALIZES PERMISSION FOR THIS RN TO UPDATE HER. UPDATED AND SHE STATES THAT THIS IS NOT THE FIRST TIME HE HAS HAD A SBO, SHE ALSO STATES "I TOLD HIM NOT TO EAT SO MANY FRIED POTATOES"
--- NOTE | 2021-03-10 07:18 | EKG ---
[address] [address] ELECTROCARDIOGRAM REPORT Name: KARLENE MOSS Room #: 170-6 ADM IN M.R.#: [id number] Admission: 03/10/21 Attend Phys: Nitish Grimm MD Discharge: Date of : 40 Report #: [id number] [facility] ED Test Date: 2021-03-10 Test Time: 04:05:18 Pat Name: KARLENE MOSS Department: Room: 170 Gender: M Silica Mixer Operator: BESSY : 1940 Requested By: Scott Ruiz Order Number: [id number] MD: Kenny Townsend Measurements Intervals [place] Rate: 126 P: 51 [place]: 67 QRS: -32 QRSD: 118 T: 55 QT: 320 QTc: 464 Interpretive Statements Sinus tachycardia Atrial premature complexes Nonspecific intraventricular conduction delay Probable inferior infarct Compared to ECG 02/24/2021 18:26:35 Intraventricular conduction delay now present Myocardial infarct finding now present Sinus rhythm no longer present Electronically Signed On 03-10-2021 7:18:14 FACULTY INSTRUCTOR by Kenny Townsend [email or web address] <ELECTRONICALLY SIGNED> By: Kenny Townsend MD, [facility] 03/10/21 0718 0405 Kenny Townsend MD, [facility] /EPI
--- NOTE | 2021-03-10 10:17 | NUR ---
ASSUMED CARE OF PT AT THIS TIME
[2021-03-10 10:50] VITALS: BP 114/54
--- NOTE | 2021-03-10 15:39 | NUR ---
80 year old female presents to the ED on 03-10-21 via [facility] for abdominal pain and vomiting for 24-hours. Per ID NOW is the ED listed as negative and patient reports vaccinated with Moderna July of 2020. The patient has been admitted and being treated for SBO with NG and sepsis. Surgery has been consulted. Patient last in contact with CM at discharge on 07-01-20 when family assisted home for patient to receive Home Health with [facility]. Then as now the patient resides in a home with his spouse and has been to skilled in the past via [facility]. Per the record and assessments the patient's Spouse Mei Adorno at [phone] and ej Adorno at [phone] remain listed as next of kin and contacts. CM will follow medical assessments and therapy evaluations for needs identified for discharge planning.
--- NOTE | 2021-03-10 17:37 | NUR ---
PT USES CALL LIGHT TO ASK IF THIS RN WILL CALL HIS SON TO SEE ABOUT BRINGING HIM SOME CLEAN SWEATPANTS BECAUSE HE THINKS IT MIGHT KEEP HIM A LITTLE WARMER. PT GIVEN PHONE NUMBER [phone]. SPOKE WITH [id number] WHO STATES HE WILL LET SOMEONE IN THE FAMILY KNOW AND ASKS ABOUT SOCKS WELL
[2021-03-10 18:50] VITALS: BP 126/68
--- NOTE | 2021-03-10 19:11 | NUR ---
spoke to dr rosas and patient okay to downgrade to med surg tele status.
[2021-03-10 19:35] VITALS: BP 126/68
--- NOTE | 2021-03-10 19:35 | NUR ---
THIS RN CALLED AND SPOKE WITH DO PT'S AND UPDATED HER ON ROOM ASSIGNMENT
[2021-03-10 19:43] VITALS: BP 126/68
[2021-03-10 20:18] VITALS: BP 157/94
--- NOTE | 2021-03-11 02:57 | NUR ---
PT ARRIVED TO THE UNIT FROM THE ED AT AROUND 2000 HRS. ALERT AND ORIENTED.NG IN PLACE TO LEFT NARE.CONNECTED TO LIS, BILIOUS AMTS OUT>1000CC OF NOW.PT DENIES ANY NAUSEA OR VOMITING. ABDOMEN IS DISTENDED SOME. BOWEL SOUNDS ARE HYPOACTIVE. NPO.ST ON TELEMETRY, NOTED TO MOMENTARILY CLIMB UP TO 130-NOT SUSTAINING, ONE TIME LOPRESSOR IVP ORDERED AND BEING GIVEN NOW. PT USES URINAL, HAS URINARY FREQUENCY, U/O LOOKS LIGHT YELLOW.IVF INFUSING.AFEBRILE.PT IS TIRED AND AMBULATION PER ORDERS WILL START IN THE AM. NO FURTHER CONCERNS. HE APPEARS NOT TO BE IN DISTRESS. CALL LIGHT WITHIN REACH.WILL CONTINUE WITH POC TILL EOS.
[2021-03-11 03:58] LABS: HEMATOCRIT 38.8 % (42.0-52.0); HEMOGLOBIN 12.7 gm/dL (14.0-18.0); MCH 30.1 pg (26.0-34.0); MCHC 32.7 g/dL (28.0-37.0); MCV 92.1 fL (80.0-100.0); RBC 4.22 mil/uL (4.50-6.00); RDW 14.9 % (10.5-14.5); WBC 20.5 thou/uL (4.0-11.0)
[2021-03-11 04:12] LABS: ALBUMIN 2.6 g/dL (3.4-5.0); CALCIUM 8.4 mg/dL (8.5-10.1); CREATININE 0.9 mg/dL (0.7-1.3); MAGNESIUM 1.7 mg/dL (1.8-2.4); PHOSPHORUS 3.1 mg/dL (2.6-4.7); POTASSIUM 3.7 mmol/L (3.5-5.1)
[2021-03-11 07:30] VITALS: BP 132/72
--- NOTE | 2021-03-11 11:22 | NUR ---
Assumed care of pt at 0700. Pt a&ox4. Denies pain. NG tube in place. RA. IVF and IV antibiotics infusing. Not passing any gas yet. Call light within reach. Fall precautions in place. Will continue to monitor.
[2021-03-11 16:33] VITALS: BP 133/69
[2021-03-11 21:29] VITALS: BP 136/72
[2021-03-12 05:18] LABS: HEMATOCRIT 40.5 % (42.0-52.0); HEMOGLOBIN 13.5 gm/dL (14.0-18.0); MCH 30.4 pg (26.0-34.0); MCHC 33.2 g/dL (28.0-37.0); MCV 91.4 fL (80.0-100.0); RBC 4.43 mil/uL (4.50-6.00); RDW 14.5 % (10.5-14.5); WBC 12.2 thou/uL (4.0-11.0)
[2021-03-12 05:51] LABS: CALCIUM 8.8 mg/dL (8.5-10.1); POTASSIUM 3.6 mmol/L (3.5-5.1)
[2021-03-12 07:13] VITALS: BP 137/84
--- NOTE | 2021-03-12 10:35 | NUR ---
Assumed care of pt at 0700. Pt a&ox4. Denies pain. NG tube removed per dr order and clear liquid diet started. IVF infusing. SBA. Call light within reach. Will continue to monitor.
--- NOTE | 2021-03-12 11:27 | NUR ---
DX SBO. Discussed during los, no anticipated dc today. NG was taken out today and going to advanced diet to clear liquids. Will cont following as needed.
[2021-03-12 11:32] VITALS: BP 145/84
[2021-03-12 15:45] VITALS: BP 118/72
[2021-03-12 19:10] VITALS: BP 117/76
--- NOTE | 2021-03-13 00:46 | NUR ---
ASSESSMENT COMPLETED. ALERT AND ORIENTED.PLEASANT AND COOPERATIVE. C/O URINARY HESITANCY,GIVEN FLOMAX.AMBULATED IN ROOM AND HALLWAY. STOMACH IS ABIT DISTENDED, BOWEL SOUNDS PRESENT, NOT PASSING GAS AND NO BM SO FAR-PT DENIES PAIN/NAUSEA/VOMITING. HE IS AFEBRILE. ON ROOM AIR, SATTING OKAY.ST IN THE UPPER 90'S-PT REPORTED THAT HE TAKES HIS HEART MEDICINE AT BEDTIME, AND WAS THEREFORE GIVEN THE CARDIZEM. HE IS SLOWLY PROGRESSING TOWARDS CARE GOALS.
[2021-03-13 03:58] VITALS: BP 113/68
--- NOTE | 2021-03-13 06:00 | NUR ---
Pt transfered to Room 455. Stable condition.
[2021-03-13 07:35] VITALS: BP 119/65
[2021-03-13 11:10] LABS: HEMATOCRIT 35.4 % (42.0-52.0); HEMOGLOBIN 11.9 gm/dL (14.0-18.0); MCH 31.1 pg (26.0-34.0); MCHC 33.7 g/dL (28.0-37.0); MCV 92.1 fL (80.0-100.0); RBC 3.84 mil/uL (4.50-6.00); RDW 14.3 % (10.5-14.5); WBC 8.1 thou/uL (4.0-11.0)
[2021-03-13 11:22] LABS: CALCIUM 8.3 mg/dL (8.5-10.1); CREATININE 1.1 mg/dL (0.7-1.3); MAGNESIUM 1.7 mg/dL (1.8-2.4); POTASSIUM 3.1 mmol/L (3.5-5.1)
--- NOTE | 2021-03-13 15:01 | NUR ---
PT TOLERATING CLD. FLATUS NO BM. PT TO HAVE CXR RELATED TO COMPLAINT OF S/0. CM FOLLOWING REGARDING DC PLANNING.
[2021-03-13 16:37] VITALS: BP 110/50
[2021-03-13 20:02] VITALS: BP 163/71
[2021-03-13 21:16] VITALS: BP 159/83
[2021-03-14 00:16] VITALS: BP 153/63
--- NOTE | 2021-03-14 02:46 | NUR ---
ASSUMED PT CARE THIS PM. PT IS ALERT AND ORIENTED X4. PT C/O OF HEART BURN DURING THIS SHIFT AND CALCIUM CARBONATE WAS GIVEN BUT IT DID NOT HELP. PT SAID HE HAS NOT TAKEN HIS OMEPRAZOLE FOR THREE DAYS WHICH HELPS WITH THE HEART BURN. PT HAD A DARK RED EMESIS OF ABOUT 500ML. NOC WAITER/WAITRESS TAKE OUT WAS INFORMED AND ORDERS WERE PLACED PT TO BE MADE NPO AND ANTIEMETIC MEDS WERE GIVEN. PT ALSO C/O EPIGASTRIC PAIN WHICH WAS MANAGED BY PRN PAIN MEDS. PT IS ON 2L OF O2 VIA NC. PT IS CURRENTLY SLEEPING. FALL PRECAUTIONS IN PLACE. WILL CONTINUE TO MONITOR.
[2021-03-14 04:04] VITALS: BP 127/46
[2021-03-14 06:57] LABS: HEMATOCRIT 39.4 % (42.0-52.0); HEMOGLOBIN 12.8 gm/dL (14.0-18.0); MCHC 32.6 g/dL (28.0-37.0); MCV 92.1 fL (80.0-100.0); RBC 4.27 mil/uL (4.50-6.00); RDW 14.7 % (10.5-14.5); WBC 16.7 thou/uL (4.0-11.0)
[2021-03-14 07:00] VITALS: BP 113/28
[2021-03-14 07:22] LABS: CALCIUM 9.4 mg/dL (8.5-10.1); CREATININE 0.9 mg/dL (0.7-1.3); MAGNESIUM 2.3 mg/dL (1.8-2.4)
[2021-03-14 07:58] LABS: POTASSIUM 4.9 mmol/L (3.5-5.1)
--- NOTE | 2021-03-14 16:15 | NUR ---
PT HAD BLOODY EMESIS THIS DAY. PT IS NPO AGIAN AND CARE TEAM ARE MONITORING TO SEE IF NGT NEEDS TO BE REPLACED. IT IS ANTICIPATED THAT PT WILL BE ABLE TO DC HOME TO SELF CARE ONCE MEDICALLY STABLE.
[2021-03-14 19:44] VITALS: BP 126/71
[2021-03-15 00:35] VITALS: BP 86/53
[2021-03-15 02:24] VITALS: BP 92/44
[2021-03-15 04:46] VITALS: BP 110/45
--- NOTE | 2021-03-15 07:05 | EKG ---
[place] [address] [address] [facility] [employer] [place] [address] ELECTROCARDIOGRAM REPORT Name: KARLENE MOSS Room #: 455- ADM IN M.R.#: [id number] Admission: 03/10/21 Attend Phys: Nitish Grimm MD Discharge: Date of : 40 Report #: [id number] [facility] Test Date: 2021-03-14 Test Time: 13:02:20 Pat Name: KARLENE MOSS Department: Room: 455 Gender: M Dairy Manager: CHELSY : 1940 Requested By: Aaron Coffman Order Number: [id number] MD: Kenny Townsend Measurements Intervals [place] Rate: 109 P: 59 [place]: 108 QRS: -33 QRSD: 89 T: 96 QT: 323 QTc: 436 Interpretive Statements Sinus tachycardia Multiple premature complexes, vent & supraven Probable left atrial enlargement Consider RVH or PMI w/ secondary repol abnrm Inferior infarct, old Repol abnrm suggests ischemia, diffuse leads Compared to ECG 03/10/2021 04:05:18 Early repolarization now present Possible ischemia now present Atrial premature complex(es) no longer present Intraventricular conduction delay no longer present Electronically Signed On 03-15-2021 7:05:12 WIGS SALESPERSON by Kenny Townsend [email or web address] <ELECTRONICALLY SIGNED> By: Kenny Townsend MD, FACC 03/15/21 0705 01 01 Kenny Townsend MD, [facility] /EPI
[2021-03-15 07:38] VITALS: BP 103/58
--- NOTE | 2021-03-15 08:31 | NUR ---
ASSUMED CARE AT 1900, PT COMPLIANT TO TX, NO ADVERSE REACTION NOTED, AT 0045 PT WAS VS BELOW EXPECTED RANGE, BOLUS IV, ALBUMIN AND CONTINOUS MONITORING IN PROGRESS, NO PAIN REPORTED, LAYING COMFORTABLY IN BED, NO NAUSEA REPORTED, NAUSEA MEDICATION ADMINISTERED WITH SCHEDULED MEDICATION PER PT REQUEST, WILL CONTINUE TO MONITOR. REPORTS NO ABDOMINAL PAIN OR DISCOMFORT. PT STATES PASSING FLATUS. NO BM.
[2021-03-15 10:47] LABS: HEMATOCRIT 37.5 % (42.0-52.0); HEMOGLOBIN 11.9 gm/dL (14.0-18.0); MCH 30.6 pg (26.0-34.0); MCHC 31.7 g/dL (28.0-37.0); MCV 96.3 fL (80.0-100.0); RBC 3.89 mil/uL (4.50-6.00); RDW 15.4 % (10.5-14.5); WBC 14.6 thou/uL (4.0-11.0)
[2021-03-15 11:04] LABS: ALBUMIN 3.2 g/dL (3.4-5.0); CALCIUM 8.6 mg/dL (8.5-10.1); CREATININE 1.3 mg/dL (0.7-1.3); MAGNESIUM 2.2 mg/dL (1.8-2.4); POTASSIUM 4.7 mmol/L (3.5-5.1); TOTAL BILIRUBIN 0.7 mg/dL (0.2-1.0); TOTAL PROTEIN 6.4 g/dL (6.4-8.2)
[2021-03-15 15:16] LABS: URINE BILIRUBIN NEGATIVE (Negative); URINE BLOOD NEGATIVE (Negative); URINE CLARITY CLEAR; URINE COLOR YELLOW; URINE GLUCOSE-RANDOM* NEGATIVE (Negative); URINE KETONES NEGATIVE (Negative); URINE LEUKOCYTES-REFLEX NEGATIVE (Negative); URINE NITRITE-REFLEX NEGATIVE (Negative); URINE PROTEIN (DIPSTICK) NEGATIVE (Negative); URINE UROBILINOGEN 0.2 E.U./dl (0.2-1.0)
[2021-03-15 17:03] VITALS: BP 111/50
--- NOTE | 2021-03-15 18:22 | NUR ---
PT REMAINS NPO. SPOKE WITH DR. MONREAL TODAY HE STATED THE PT CAN HAVE A SMALL SIP OF WATER WITH MEDICATIONS OTHERWISE REMIANS NPO. DR. MONREAL STATED THE PLAN IS TO HAVE SURGERY TOMORROW. PT REAMINS IN GOOD SPIRITS AND DENIES ANY COMPLAINTS.
[2021-03-15 19:50] VITALS: BP 121/65
[2021-03-16] VITALS (7 sets, daily range): BP systolic 108–163; BP diastolic 57–84
--- NOTE | 2021-03-16 04:50 | NUR ---
ASSUMED CARE AT 1900, PT COMFORTABLY LAYING IN BED, CALL LIGHT WITHIN REACH, REPORTS N0 PAIN OR DISOMFORT, REMAIINS NPO FOR THE PROCEDURE ARRANGED TODAY, COMPLIANT WITH CARE, NO ADVERSE REACTION NOTED WILL CONTINUE TO [facility].
[2021-03-16 05:21] LABS: HEMATOCRIT 33.3 % (42.0-52.0); MCH 30.8 pg (26.0-34.0); MCHC 32.9 g/dL (28.0-37.0); MCV 93.7 fL (80.0-100.0); RBC 3.56 mil/uL (4.50-6.00); RDW 14.5 % (10.5-14.5)
[2021-03-16 05:30] LABS: CALCIUM 8.3 mg/dL (8.5-10.1); CREATININE 1.1 mg/dL (0.7-1.3); MAGNESIUM 1.9 mg/dL (1.8-2.4); POTASSIUM 4.4 mmol/L (3.5-5.1)
--- NOTE | 2021-03-16 18:12 | NUR ---
Pt A & O x4. Pt VS stable. Pt currently NPO. Pt currently has NG tube in left nare to suction. pt is NSR on the tele. Pt currently has mirza in place. pt has dressing to ABD in place. Pt currently has 02 at 1L per nasal cannula. pt had surgery this shift. pt received PRN pain meds as requested by pt. Pt is able to make needs known.
[2021-03-17 04:21] LABS: HEMATOCRIT 34.7 % (42.0-52.0); HEMOGLOBIN 11.5 gm/dL (14.0-18.0); MCH 30.8 pg (26.0-34.0); MCHC 33.3 g/dL (28.0-37.0); MCV 92.6 fL (80.0-100.0); RBC 3.75 mil/uL (4.50-6.00); RDW 14.5 % (10.5-14.5); WBC 12.6 thou/uL (4.0-11.0)
[2021-03-17 04:35] LABS: CALCIUM 8.3 mg/dL (8.5-10.1); CREATININE 1.2 mg/dL (0.7-1.3); POTASSIUM 4.8 mmol/L (3.5-5.1)
[2021-03-17 04:58] VITALS: BP 151/81
--- NOTE | 2021-03-17 05:11 | NUR ---
ASSUMED CARE AT 1900, PT REMAINS NPO WITH NG TUBE WORKING EFFECTIVELY, PO MEDICATIONS HELD, VITAL SIGN REMAIN ON THE BASELINE, MILLER PATENT, PT ON PAIN MANAGEMENT, COMPLIANT TO TX, NO ADVERSE REACTION NOTED WILL CONTINUE TO MONITOR.
[2021-03-17 08:00] VITALS: BP 152/81
--- NOTE | 2021-03-17 16:13 | NUR ---
Care team indicated that pt is POD # 1 exploratory laparotomy with small bowel resection x 2. Pt to have NG dc'd today. Care team are keeping pt npo. PT and Ot ordered to assess mobility post op. Cm following regarding dc planning.
[2021-03-17 16:35] VITALS: BP 141/73
--- NOTE | 2021-03-17 18:38 | NUR ---
RN ASUMED PT'S CARE AT 0700AM, PT IS A&OX4, PT'S N/V AND ABD PAIN HAVE IMPROVED, PT'S NG TUBE HAS REMOVED TODAY, BUT PT IS ON NPO AND HE IS CONTINUING IV FLUID, PT'S VS ARE STABLE AT DAY SHIFT.
[2021-03-17 19:49] VITALS: BP 150/59
[2021-03-18 01:21] VITALS: BP 130/70
--- NOTE | 2021-03-18 02:35 | NUR ---
PT ASSESSED AT START OF SHIFT C/O PAIN. IV PAIN MEDS GIVEN. PT NPO. IV INTACT AND FLUIDS INFUSING. NG TUBE D/C PER REPORT. CARDIZEM PO GIVEN WITH LIL SIP OF WATER. FALL PREC IN PLACE AND CALL LIGHT AT REACH WILL CONT TO MONITOR.
[2021-03-18 05:02] LABS: HEMATOCRIT 30.4 % (42.0-52.0); HEMOGLOBIN 10.1 gm/dL (14.0-18.0); MCH 30.9 pg (26.0-34.0); MCHC 33.3 g/dL (28.0-37.0); RBC 3.27 mil/uL (4.50-6.00); RDW 14.7 % (10.5-14.5); WBC 10.6 thou/uL (4.0-11.0)
[2021-03-18 05:22] VITALS: BP 145/57
[2021-03-18 05:26] LABS: CALCIUM 7.9 mg/dL (8.5-10.1); CREATININE 0.9 mg/dL (0.7-1.3); MAGNESIUM 1.9 mg/dL (1.8-2.4); POTASSIUM 4.4 mmol/L (3.5-5.1)
[2021-03-18 07:14] VITALS: BP 138/58
--- NOTE | 2021-03-18 14:50 | NUR ---
PT AND OT ORDERED THIS DAY. PT STILL ON CLD. CM FOLLOWING REGARDING DC PLANNING.
[2021-03-18 17:22] VITALS: BP 133/61
--- NOTE | 2021-03-18 18:32 | NUR ---
Assumed pt care at 7am.Pt in bed most of the times this shift.Assessment completed.vss.Pt encourage to ambulate in hallways but refused.Dr Coffman here,order noted. Later this afternoon,pt ambulated in hallways with therapist good endurance noted.Pt has been belching but no gas noted.Dr Baird here, no order noted. Oral care done.No verbal c/o. Will continue tomonitor.
[2021-03-18 20:01] VITALS: BP 148/77
[2021-03-18 23:55] VITALS: BP 131/58
--- NOTE | 2021-03-19 04:00 | NUR ---
THROUGH THE NOC, PT ON / THRO THE NOC, NO SOA NOTED, NPO, IVF INFUSED.SR ON TELE.DENIES NAUSEA OR VOMITING.
[2021-03-19 06:09] LABS: HEMATOCRIT 33.2 % (42.0-52.0); HEMOGLOBIN 10.9 gm/dL (14.0-18.0); MCH 30.4 pg (26.0-34.0); MCHC 32.9 g/dL (28.0-37.0); MCV 92.4 fL (80.0-100.0); RBC 3.59 mil/uL (4.50-6.00); RDW 14.7 % (10.5-14.5); WBC 12.3 thou/uL (4.0-11.0)
[2021-03-19 06:19] LABS: CALCIUM 8.1 mg/dL (8.5-10.1); MAGNESIUM 1.6 mg/dL (1.8-2.4); POTASSIUM 4.7 mmol/L (3.5-5.1)
[2021-03-19 07:32] VITALS: BP 141/71
--- NOTE | 2021-03-19 10:10 | NUR ---
CALLED DR. BRIZUELA AT 0806 IN REGARDS TO SHUTTING OFF FLUIDS D/T CHANGE IN LUNG SOUNDS, RESPIRATORY ASSESSED, CRACKLES NOTED IN LUNG BASES. OK TO TURN OFF FLUIDS, PORTABLE CHEST XRAY ORDERED. NO FURTHER ORDERS GIVEN. WILL ROUND ON PATIENT SOON CHEST XRAY IS READ.
[2021-03-19 11:20] VITALS: BP 132/56
--- NOTE | 2021-03-19 15:18 | NUR ---
PT AND OT ASSESSED PT AND OT DOCUMENTED ON GOING ASSESSMENT INDICATED. PT STILL ON 2L O2 HE DIDN'T HAVE HIS O2 CONFIDENTIAL SECRETARY. PT STILL ON CLD. NO BME OR FLATUS OF THIS NOTE. SURGERY INDICATED THEY WANT TO INITIATE TPN. CM FOLLOWING REGARDING DC PLANNING.
[2021-03-19 15:42] VITALS: BP 118/54
--- NOTE | 2021-03-19 16:06 | PATH ---
[facility] [address] [place] [address] PATHOLOGY RPT PROCEDURE Name: CYNDY ADORNOANDRES Alvarez Room #: 455-P ADM IN M.R.#: [id number] Admission: 03/10/21 Date of : 40 Discharge: Report #: [id number] Path Case #: [id number] [facility] Accession Number: [id number] . 01 Material submitted: . small bowel - SMALL BOWEL . 02 Diagnosis: Small bowel, resection: - Small bowelx2 with active serositis and serosal adhesions. - Mucosal epithelium with focal ischemic changes. - Negative for adenomatous polyps, carcinoma or lymphoproliferative disease. - Margins are viable and negative for malignancy. (ANK:zarina; 03/19/2021) MBR 03/19/2021 1531 Local . 02 Electronically signed: . Sherry Alvarez MD, Pathologist NPI- [id number] . 01 Gross description: . The specimen is received in formalin, labeled "Karen Adorno, small bowel". Received are three segments of small bowel ranging in length from 2.3 to 15.1 cm, and ranging in diameter from 2.0 to 2.2 cm. All margins are stapled and will be described individually. . The serosal surface of segment 1 is pink-redman in appearance with a slight amount of adhesions identified, and a staple line going down the entire length of the specimen. The attached mesenteric that measures up to 1.2 cm in thickness. Opening the specimen reveals light denise mucosa with normal architectural folds. No distinct nodules or lesions are noted grossly. . The serosal surface of segment 2 is pink-redman in appearance with adhesions identified. The attached mesenteric fat measures up to 2.8 cm in thickness. Opening the specimen reveals light denise to light green mucosa with normal architectural folds. No distinct nodules or lesions are noted grossly. . The serosal surface of segment 3 is pink-redman in appearance with two transmural circular defects measuring 1.5 x 1.0 and 1.8 x 1.0 cm. The larger defect is predominately shaggy in appearance. The attached mesenteric fat measures up to 2.5 cm in thickness. Opening the specimen reveals light denise mucosa with normal architectural folds. No distinct nodules or lesions are noted grossly. . [address] [address] PATHOLOGY RPT PROCEDURE Name: CYNDY ADORNOANDRES Alvarez Room #: 455-P [facility] IN M.R.#: [id number] Admission: 03/10/21 Date of : 40 Discharge: Report #: [id number] Path Case #: [id number] Also received within this vessel container is a staple line with attached bowel tissue measuring 4.1 x 1.0 x 0.5 cm in greatest dimensions. The specimen is submitted representatively as follows: . A1-A2 both margins segment 1 A3 industrial relations representative cross-section segment 1 A4-A5 both margins segment 2 A6 industrial relations representative section through area of adhesion segment 2 A7 industrial relations representative cross-sections segment 2 A8-A9 both margins of segment 3 A10 industrial relations representative section of adhesion segment 3 A11 industrial relations representative sections through larger circular defect segment 3 A12 industrial relations representative sections from industrial relations representative sections through smaller circular defect segment 3 A13 industrial relations representative cross-section segment 3 A14 industrial relations representative sections of tissue from separately submitted staple line segment. (CAA; 03/18/2021) QAC/QAC 03/19/2021 1107 Local . 02 Pathologist provided ICD-10: K65.8 . 02 CPT . 191905 Specimen Comment: A courtesy copy of this report has been sent to [phone] Specimen Comment: Report sent to Performed at: 01 [facility] [address] [place] [address] [address], [place] [id number] MD Cipriano Rao MD Phone: [phone] Performed at: [address] [facility] [address] [id number] MD Adriane Burnham MD Phone: [phone]
--- NOTE | 2021-03-19 19:13 | NUR ---
VAT CONSULTED FOR PICC PLACEMENT, FOR TPN. RIGHT BASILIC PICC, TRIMMED 45/2CCM EXTERNAL, PLACED AND TIP LOCATION VERIFIED WITH 3CG. PT TOLERATED WELL. BOTH LUMENS FLUSH AND RETURN BLOOD. RELEASED LINE PER VASCULAR ACCESS POLICY.
[2021-03-19 22:56] VITALS: BP 120/53
[2021-03-20 01:06] VITALS: BP 116/52
[2021-03-20 04:35] VITALS: BP 103/61
[2021-03-20 05:25] LABS: HEMATOCRIT 32.1 % (42.0-52.0); HEMOGLOBIN 10.9 gm/dL (14.0-18.0); MCH 31.3 pg (26.0-34.0); MCHC 33.8 g/dL (28.0-37.0); MCV 92.4 fL (80.0-100.0); RBC 3.47 mil/uL (4.50-6.00); RDW 14.8 % (10.5-14.5); WBC 10.3 thou/uL (4.0-11.0)
[2021-03-20 05:46] LABS: CALCIUM 8.2 mg/dL (8.5-10.1); MAGNESIUM 1.8 mg/dL (1.8-2.4); PHOSPHORUS 2.7 mg/dL (2.5-4.9); POTASSIUM 4.6 mmol/L (3.5-5.1)
[2021-03-20 07:19] VITALS: BP 118/46
--- NOTE | 2021-03-20 07:50 | NUR ---
patient picc line was not verified to have tpn started. called psych arnp new order for xr to check placement. patient notified. patient denied pain or discomfort. fall precaution in place. patient in bed asleep at this time breathing regular and unlaboured.
--- NOTE | 2021-03-20 10:01 | NUR ---
Please obtain current weight for malnutrition dx.
--- NOTE | 2021-03-20 12:20 | NUR ---
If unable to advance diet from clears within next 24 hrs, recommend start TPN at 40 mls/hr per order.
[2021-03-20 14:08] VITALS: BP 119/46
--- NOTE | 2021-03-20 14:21 | NUR ---
PT WAS INITIATED ON TPN THIS DAY. CM MET WITH PT AT BEDSIDE THIS DAY AND INDICATED THAT CARE TEAM ARE RECOMMENDING THAT PT GO FOR SHORT TERM POST ACUTE CARE STAY. PT INDICATED HE WAS AGREEABLE AND ASKED THAT REFERRAL BE SENT TO [facility] FOR REVIEW FOR POSSIBLE ADMISSION. CM CALLED [facility] AND FAXED REFERRAL. CM FOLLOWING REGARDING DC PLANNING.
[2021-03-20 16:55] VITALS: BP 132/37
[2021-03-20 20:11] VITALS: BP 117/53
[2021-03-21 00:37] VITALS: BP 104/42
[2021-03-21 04:55] VITALS: BP 121/44
[2021-03-21 05:55] LABS: HEMATOCRIT 29.5 % (42.0-52.0); MCH 30.8 pg (26.0-34.0); MCHC 33.8 g/dL (28.0-37.0); MCV 91.2 fL (80.0-100.0); RBC 3.23 mil/uL (4.50-6.00); RDW 14.4 % (10.5-14.5); WBC 7.8 thou/uL (4.0-11.0)
[2021-03-21 06:17] LABS: CALCIUM 8.2 mg/dL (8.5-10.1); MAGNESIUM 1.8 mg/dL (1.8-2.4); PHOSPHORUS 2.4 mg/dL (2.5-4.9); POTASSIUM 3.7 mmol/L (3.5-5.1)
--- NOTE | 2021-03-21 07:06 | EKG ---
[address] [place] [address] ELECTROCARDIOGRAM REPORT Name: KARLENE MOSS Kim Room #: 455- ADM IN M.R.#: [id number] Admission: 03/10/21 Attend Phys: Nitish Grimm MD Discharge: Date of : 40 Report #: [id number] [facility] Test Date: 2021-03-20 Test Time: 14:38:01 Pat Name: KARLENE MOSS Department: Room: 455 P Gender: M Bisque Grader: CHELSY : 1940 Requested By: Lucho Younger Order Number: [id number] MD: Kenny Townsend Measurements Intervals [place] Rate: 115 P: 60 [place]: 119 QRS: -23 QRSD: 88 T: 100 QT: 289 QTc: 400 Interpretive Statements Sinus tachycardia Multiple ventricular premature complexes Left atrial enlargement Abnormal R-wave progression, early transition Inferior infarct, old Lateral leads are also involved Compared to ECG 03/14/2021 13:02:20 Ventricular premature complex(es) now present Early repolarization no longer present Possible ischemia no longer present Myocardial infarct finding still present Electronically Signed On 03-21-2021 7:06:18 MAIL HANDLER by Kenny Townsend [email or web address] <ELECTRONICALLY SIGNED> By: Kenny Townsend MD, FACC 03/21/21 0706 1438 1438 Kenny Townsend MD, FAC /EPI
[2021-03-21 07:16] VITALS: BP 100/44
--- NOTE | 2021-03-21 07:41 | NUR ---
patient aox4 makes needs known. patient tolerated full liquids. tpn running at this time. fall precaution in place. patient in bed asleep at this time breathing regular and unlaboured.
--- NOTE | 2021-03-21 11:42 | 2DMMODE ---
[facility] [place] [address] 2 D/M-MODE ECHOCARDIOGRAM Name: KARLENE MOSS Room #: 455-P ADM IN M.R.#: [id number] Admission: 03/10/21 Attend Phys: Nitish Grimm MD Discharge: Date of : 40 Report #: [id number] THIS REPORT FOR: cc: Shelley Gaona MD, Cora A. MD Santiago, Patrick MD [facility] ~ APPROVED REPORT Study performed: 03/21/2021 12:10:20 EXAM: Comprehensive 2D, Doppler, and color-flow Echocardiogram Patient Location: Bedside Room #: [facility] Status: routine BSA: 1.83 HR: 88 bpm BP: 100/44 mmHg Rhythm: sinus arrhythmia Other Information Study Quality: Adequate Indications VT, CAD. Hx: CABG, COPD 2D Dimensions IVSd: 10.07 (7-11mm) LVOT Diam: 21.17 (18-24mm) LVDd: 52.13 mm PWd: 10.65 (7-11mm) LVDs: 39.29 (25-40mm) Left Atrium: 33.73 (27-40mm) Aortic Root: 31.63 mm Volumes Left Atrial Volume (Systole) Single Plane 4CH: 43.20 mL Single Plane 2CH: 45.39 mL LA ESV Index: 27.00 mL/m2 Aortic Valve AoV Peak Jude.: 0.93 m/s AO Peak Gr.: 4.20 mmHg LVOT Max P.59 mmHg LVOT Max V: 0.80 m/s NEHEMIAH Vmax: 3.04 cm2 [facility] [address] [place] [address] 2 D/M-MODE ECHOCARDIOGRAM Name: ISAKARLENE Room #: 455-P [facility] IN MelinaRegi#: [id number] Admission: 03/10/21 Attend Phys: Nitish Grimm, Discharge: Date of : 40 Report #: [id number] Mitral Valve E/A Ratio: 0.7 MV Decel. Time: 175.62 ms MV E Max Jude.: 0.55 m/s MV A Jude.: 0.80 m/s MV PHT: 50.93 ms IVRT: 72.66 ms Pulmonary Valve PV Peak Jude.: 0.79 m/s PV Peak Gr.: 2.51 mmHg Tricuspid Valve RAP Estimate: 5.00 mmHg Left Ventricle The left ventricle is normal size. There is normal left ventricular wall thickness. Left ventricular systolic function is low normal. LVEF is 50%. Mild diastolic dysfunction is present (impaired relaxation pattern). Right Ventricle The right ventricle is normal size. The right ventricular systolic function is normal. Atria The left atrium size is normal. The right atrium size is normal. Aortic Valve The aortic valve is normal in structure. No aortic regurgitation is present. There is no aortic valvular stenosis. Mitral Valve The mitral valve is normal in structure. There is no mitral valve regurgitation noted. No evidence of mitral valve stenosis. Tricuspid Valve The tricuspid valve is normal in structure. There is no tricuspid valve regurgitation noted. Unable to assess PA pressure. Pulmonic Valve The pulmonary valve is normal in structure. There is no pulmonic valvular regurgitation. Great Vessels [facility] [address] [place] [address] 2 D/M-MODE ECHOCARDIOGRAM Name: KARLENE MOSS Room #: 455-P [facility] IN [facility].#: [id number] Admission: 03/10/21 Attend Phys: Nitish Grimm, Discharge: Date of : 40 Report #: [id number] The aortic root is normal in size. Aortic arch is not well visualized. IVC is normal in size and collapses >50% with inspiration. Pericardium There is no pericardial effusion. <Conclusion> Normal left ventricle size/wall thickness Ejection fraction estimated 50% with severe anteroapical and distal septal hypokinesis Grade 1 diastolic dysfunction Normal right ventricle size/function Normal aortic/mitral valve structure and function No tricuspid valve insufficiency No pericardial effusion Normal aortic root size. <ELECTRONICALLY SIGNED> By: Kenny Townsend MD, FACC 03/21/21 1141 1141 1141 Kenny Townsend MD, FACC /INF
[2021-03-21 15:29] VITALS: BP 117/73
--- NOTE | 2021-03-21 15:31 | NUR ---
CM HAD SENT REFERRAL TO [facility] AND CM HASN'T HEARD BACK FROM ADMISSIONS AT THE FACILITY AFTER LEAVING NUMEROUS VOICEMAILS. PT CONTINUES ON CLD AND TPN. PT INDICATED PT DID BETTER TODAY BUT WOULD BENEFIT FROM SHORT TERM SKILLED POST ACUTE CARE STAY. AUTH WILL NEED TO BE OBTAINED UNFORTUNATLY PT WILL LIKELY BE HERE OVER WEEKEND.
[2021-03-21 20:06] VITALS: BP 102/64
[2021-03-22 07:05] VITALS: BP 106/53
--- NOTE | 2021-03-22 08:18 | NUR ---
CALLED [facility] AND ASKED FOR THE D.O.N OR CHARGE FOR THE WEEKEND, WAS TRANSFERRED TO A VOICE MAIL, LEFT MESSAGE TO CALL BACK WHEN AUTH WAS OBTAINED. THANK YOU. [facility]
--- NOTE | 2021-03-22 08:58 | NUR ---
ASSUMED CARE AT 1900, PT LAYING IN BED COMFORTABLY REPORTS NO PAIN OR DISCOMFORT, COMPLIANT TO TX, NO ADVERSE REACTION, GOOD COUGHING, SECRETION NOT OBSERVED, PLEASANT MOOD, CALL LIGHT WITHIN REACH, CONTINUE TO BE ON TPN, WILL CONTINUE TO MONITOR.
[2021-03-22 09:17] LABS: CALCIUM 8.6 mg/dL (8.5-10.1); CREATININE 0.9 mg/dL (0.7-1.3); MAGNESIUM 1.5 mg/dL (1.8-2.4); PHOSPHORUS 3.2 mg/dL (2.5-4.9)
[2021-03-22 11:05] VITALS: BP 121/60
[2021-03-22 15:44] VITALS: BP 104/54
--- NOTE | 2021-03-22 17:50 | NUR ---
Pt A & O x4. Pt VS stable. Pt cont on TPN. Pt received medications as ordered. Pt sat in chair this shift. Pt is on 2L of 02 per nasal cannula as needed. Pt gets SOA with exertion. Pt is NSR on the tele. Pt is x 1 assist with ADLs. Pt is able to make needs known
[2021-03-22 20:03] VITALS: BP 122/55
--- NOTE | 2021-03-23 04:25 | NUR ---
ASSESSMENT COMPLETED. PT REPORTS FEELING WEAK.VOIDING OKAY. DENIES PAIN.CONTINUES ON TPN.ENCOURAGED TO USE I/S.AFEBRILE.
[2021-03-23 07:40] LABS: CALCIUM 8.4 mg/dL (8.5-10.1); CREATININE 0.9 mg/dL (0.7-1.3); MAGNESIUM 1.5 mg/dL (1.8-2.4); PHOSPHORUS 3.8 mg/dL (2.6-4.7); POTASSIUM 4.1 mmol/L (3.5-5.1)
[2021-03-23 07:49] VITALS: BP 117/66
--- NOTE | 2021-03-23 16:59 | NUR ---
Pt is A &O x4. Pt VS stable. Pt received medications as ordered. Pt diet advanced this shift to soft diet. Pt has TPN noted. Pt savita to ABD JAVAN. Pt had liquid BM this shift. Pt is currently room air. pt is NSR on the tele. Pt is able to make needs known
[2021-03-23 17:23] VITALS: BP 110/65
[2021-03-23 19:41] VITALS: BP 111/54
[2021-03-24 04:30] VITALS: BP 110/57
--- NOTE | 2021-03-24 05:45 | NUR ---
ASSUMED CARE AT 1900, PT LAYING COMFORTABLY IN BED, REPORTS NO PAIN OR DISCOMFORT, TOLERATING TX WELL, NO ADVERSE REACTION NOTED, WILL CONTINUE TO MONITOR.
[2021-03-24 07:00] VITALS: BP 101/52; BP 141/87
[2021-03-24 11:00] VITALS: BP 106/45
--- NOTE | 2021-03-24 13:39 | NUR ---
CM HEARD BACK FROM [facility] AND THEY AREN'T ACCEPTING NEW PATIENTES RELATED TO COVID IN HOUSE. CM NOTIFIED PT AND HE ASKED THAT REFERRALS BE SENT TO [facility]. CM FAXED REFERRALS AND INDICATED TO FACILITIES THAT PT IS DC READY. CM FOLLOWING REGARDING DC PLANNING.
[2021-03-24 17:00] VITALS: BP 106/57; BP 147/75
--- NOTE | 2021-03-24 19:44 | NUR ---
Assumed pt care at 7am.Pt in and out of bed with sba. Assessment completed.vss pt tolerated meds and diet. Pt up in hallways with therapist today. Tpn infusing as ordered. CM stated that no bed available for pt at any rehab place today and possibly in am. No verbal c/o. Will continue to monitor.
[2021-03-24 20:19] VITALS: BP 139/89
--- NOTE | 2021-03-25 03:23 | NUR ---
ASSUMED PT CARE THIS PM. PT IS ALERT AND ORIENTED x4. PT HAS ABD ICISION WITH 26 JEREMY IN PLCAE. PT DID NOT C/O PAIN OR SOB. MEDS WERE GIVEN PER EMAR ORDERS. NO VISIBLE SIGN OF DISTRESS WAS NOTED. FALL PRECAUTIONS IN PLACE. WILL CONTINUE TO MONITOR.
[2021-03-25 07:07] VITALS: BP 93/41
--- NOTE | 2021-03-25 08:36 | EKG ---
[address] [place] [address] ELECTROCARDIOGRAM REPORT Name: KARLENE MOSS Room #: 455- ADM IN M.R.#: [id number] Admission: 03/10/21 Attend Phys: Nitish Grimm MD Discharge: Date of : 40 Report #: [id number] [facility] Test Date: 2021-03-25 Test Time: 07:49:35 Pat Name: KARLENE MOSS Department: Room: 455 Gender: M Diagnostics Tech: RENE : 1940 Requested By: Sonal Henderson Order Number: [id number] MD: Juan Andrews Measurements Intervals [place] Rate: 82 P: 66 [place]: 131 QRS: 66 QRSD: 94 T: 74 QT: 374 QTc: 437 Interpretive Statements Sinus rhythm Atrial premature complexes Abnormal R-wave progression, early transition Compared to ECG 03/20/2021 14:38:01 Sinus tachycardia no longer present Possible preexcitation with pseudoinfarct pattern no longer present Electronically Signed On 03-25-2021 8:36:31 FIELD ADMINISTRATIVE ASSISTANT by Juan Andrews [email or web address] <ELECTRONICALLY SIGNED> By: Juan Andrews MD, [facility] 03/25/21 0836 0749 0749 Juan Andrews MD, [facility] /EPI
[2021-03-25 11:25] VITALS: BP 85/51
[2021-03-25 14:48] VITALS: BP 102/51
[2021-03-25 14:52] VITALS: BP 95/45
[2021-03-25] MEDS ORDERED: IMDUR 30 MG TAB30 M1 PO (14:55)
[2021-03-25] MEDS ORDERED: PROTONIX40 M2 PO (14:55)
[2021-03-25] MEDS ORDERED: MIRALAX17 GM PO (14:55)
[2021-03-25] MEDS ORDERED: DOXYCYCLINE HYC50 MG PO (14:55)
[2021-03-25] MEDS ORDERED: CALTRATE-600 W1 EACH PO (14:55)
[2021-03-25] MEDS ORDERED: METOPROLOL SUCC50 MG PO (14:55)
[2021-03-25] MEDS ORDERED: PULMICORT0.5 MG/2 M INH (15:04)
[2021-03-25] MEDS ORDERED: MUCINEX600 MG PO (15:05)
[2021-03-25] MEDS ORDERED: ENOXAPARIN40 MG/0.4 SUBQ (15:05)
--- NOTE | 2021-03-25 15:24 | NUR ---
CARE TEAM INDICATED THAT PT IS MEDICALLY STABLE TO DC TO SKILLED THIS DAY. [facility] SUBMITTED FOR AUTH THIS AM. THEY RECIEVED AUTH. PT TO DC TO [facility] THIS DAY. KANDIS VAN WITH 1L 02 ARRANGED FOR [id number]. PT IS AWARE AND CM NOTIFIED PT'S SPOUSE. ORDERS FAXED. CHART COPY MADE. NO OTHER CM INTERVENTION INDICATED. CASE CLOSED.
--- NOTE | 2021-03-25 16:41 | NUR ---
PT ALERT AND ORIENTED. HAD LOW BP THIS AM. DR. BRIZUELA AWARE. ORDERS GIVEN TO DISCHARGE PT TO REHAB [facility]. NOTIFIED. PT LEFT THE FACILITY WITH ALL HIS BELONGING.
--- NOTE | 2021-03-26 13:40 | EKG ---
[address] [address] ELECTROCARDIOGRAM REPORT Name: KARLENE MOSS Room #: 455-[facility] IN M.R.#: [id number] Admission: 03/10/21 Attend Phys: Nitish Grimm MD Discharge: 03/25/21 Date of : 40 Report #: [id number] [facility] Test Date: 2021-03-25 Test Time: 06:28:00 Pat Name: KARLENE MOSS Department: Room: [facility] Gender: M Security Guards Dispatcher: UNKNOWN : 1940 Requested By: Sonal Henderson Order Number: [id number] : Kenny Townsend Measurements Intervals [place] Rate: 83 P: 67 [place]: 117 QRS: -19 QRSD: 96 T: 53 QT: 390 QTc: 459 Interpretive Statements Sinus rhythm Atrial premature complexes Borderline short [place] interval Probable left atrial enlargement Compared to ECG 03/20/2021 14:38:01 Atrial premature complex(es) now present Sinus tachycardia no longer present Electronically Signed On 03-26-2021 13:40:02 BLANCHING MACHINE OPERATOR by Kenny Townsend [email or web address] <ELECTRONICALLY SIGNED> By: Kenny Townsend MD, FAC 03/26/21 1340 Kenny Townsend MD, [facility] /EPI
--- NOTE | 2021-03-31 12:26 | O ---
[facility] [place] [address] OPERATIVE REPORT Name: KARLENE MOSS Room #: 455-P [facility] IN M.R.#: [id number] Admission: 03/10/21 Attend Phys: Nitish Grimm MD Discharge: 03/25/21 Date of : 40 Report #: [id number] THIS REPORT FOR: cc: Shelley Gaona MD, Cora A. MD Patterson,Yunier Garrett MD ~ DATE OF SERVICE: 03/16/2021 PREOPERATIVE DIAGNOSIS: Small bowel obstruction. POSTOPERATIVE DIAGNOSIS: Small bowel obstruction. OPERATIONS: 1. Diagnostic laparoscopy. 2. Exploratory laparotomy with small bowel resection x2 with anastomosis. SURGEON: Yunier Baird MD ANESTHESIA: General. ESTIMATED BLOOD LOSS: 100 mL. SPECIMENS: Small bowel. DESCRIPTION OF PROCEDURE: After informed consent was obtained, the patient was brought to the operating room and placed supine. SCDs were placed and working, preoperative antibiotics were administered, general anesthesia was induced. The abdomen was prepped and draped in the usual sterile fashion. A 5 mm incision was made in the left upper quadrant. A 5 mm trocar was placed under direct vision. Pneumoperitoneum was established. Then under direct vision, I placed 2 left lower quadrant 5 mm trocars. He had adhesions of the omentum up to the abdominal wall. He had findings of previous small bowel resection and anastomosis of the small bowel. I was able to grasp the omentum and retracted posteriorly and take down the adhesions to the abdominal wall. At this point, I did not think I could complete the operation laparoscopically and therefore, laparoscope was removed. A midline laparotomy incision was made from the umbilicus down to the pubis. Self-retaining retractor was placed. I was able to run the small bowel distally and proximally. I was able to identify the ligament of Treitz. I then went down into a clump of small bowel down in the pelvis on the left side. This corresponded with the CT and x-ray findings. In the right lower quadrant, he had previous inguinal hernia repair. He had a mesh that had become a meshoma and the small bowel was adherent to this. I was able to take the bowel off of this area. The mesh was peritonealized and therefore left in place. I then performed lysis of adhesions of this mass of small bowel. There were 2 areas that were concerning for an area of obstruction. I elected to resect these two segments. Small bowel was grasped and stapled off distally [address] [address] OPERATIVE REPORT Name: KARLENE MOSS Room #: 455-P [facility] IN [facility].#: [id number] Admission: 03/10/21 Attend Phys: Nitish Grimm MD Discharge: 03/25/21 Date of : 40 Report #: [id number] and proximally. Two segments of small bowel were excised. These measured approximately 20 cm each. Xveg-jb-qtmw anastomosis of the 2 sections of small bowel was completed using the DONATO-75 stapler in ezlk-qy-ikyr antiperistaltic fashion. The common enteroenterostomy was stapled off with a DONATO blue load stapler as well. This was done in 2 areas of the small bowel. I then ran the small bowel and made sure there were no other areas of obstruction. These were certainly the areas that were causing an obstruction on the CT. The abdomen was copiously irrigated with normal saline. The fascia was then closed with a 0 PDS in running fashion. The skin was closed with savita. Sterile dressings were applied. COMPLICATIONS: None. DISPOSITION: The patient was taken to recovery in satisfactory condition. <ELECTRONICALLY SIGNED> By: Yunier Baird MD 03/31/21 1226 1141 1202 Yunier Baird MD /nt
== END 2021-03-25 16:43 | DRG 329 ==
LOC: ER 03:49 → 4S 05:48 → EROBS 05:48 → 4S 20:04 → 4W 03-13 06:02
PROVIDERS: Emergency Medicine; Hospitalist; Internal Medicine; Surgery; ADMIT Surgery; ATTEND Surgery
DX: K56.609 Unspecified intestinal obstruction, unspecified as to partial versus complete obstruction (principal); R65.11 Systemic inflammatory response syndrome (SIRS) of non-infectious origin with acute organ dysfunction; E44.0 Moderate protein-calorie malnutrition; I47.1 Supraventricular tachycardia; K44.9 Diaphragmatic hernia without obstruction or gangrene; J44.9 Chronic obstructive pulmonary disease, unspecified; E87.6 Hypokalemia; E83.42 Hypomagnesemia; I95.1 Orthostatic hypotension; Z20.822 Contact with and (suspected) exposure to COVID-19; K21.9 Gastro-esophageal reflux disease without esophagitis; N40.0 Benign prostatic hyperplasia without lower urinary tract symptoms; E78.5 Hyperlipidemia, unspecified; I10 Essential (primary) hypertension; I25.10 Atherosclerotic heart disease of native coronary artery without angina pectoris; R53.81 Other malaise; Z90.49 Acquired absence of other specified parts of digestive tract; Z88.6 Allergy status to analgesic agent; Z88.0 Allergy status to penicillin; Z95.1 Presence of aortocoronary bypass graft; Z87.891 Personal history of nicotine dependence; Z68.21 Body mass index [BMI] 21.0-21.9, adult
CPT/HCPCS: 10045; 10100; 27000; 50101; 50411; 50555; 51412; 51708; 52265; 52266; 53307; 53314; 56462; 56525; 56526; 56528; 58574; 58586; 62110; 62900; 70005

== ENCOUNTER 2021-04-12 08:19 | Observation (INO) | payer OTHER ==
[~2021-04-12] VITALS: Ht 152.4 cm; Wt 61.2 kg
--- NOTE | ~2021-04-12 | EMS ---
[address] [address] EMS Patient Care Report Name: KARLENE MOSS Room #: 364-P [facility]#: [id number] Admission: 04/12/21 Attend Phys: Carmelo Eaton MD Discharge: 04/14/21 Date of : 40 Report #: [id number] THIS REPORT FOR: //name// Report Transmitted: 04/18/2021 14:06 EMS Care Summary [place], [place]/[facility] Incident [id number] @ 04/12/2021 07:52 Incident Location [address] [place] [address] Patient KARLENE MOSS Male, 80 Years 1940 Patient Address [address] [place] [address] Patient History Chronic Obstructive Pulmonary Disease (COPD),Cardiac Condition - Other,Diverticulitis,Coronary Artery Bypass Graft (CABG), Patient Allergies Penicillin allergy,Morphine, Patient Medications Gabapentin, Finasteride, Omeprazole, Tamsulosin, Prednisone, Diltiazem, Anoro, Chief Complaint "Hurting all over" Disposition Transported No Lights/[place] Dispatch Reason Falls Transported To [facility] Narrative Arrived on scene to find our patient laying on his right side on the living room couch. Patient reported he had been discharged from a inpatient rehabilitation facility one day prior following a bowel surgery. Patient [address] [address] EMS Patient Care Report Name: KARLENE MOSS [id number] Admission: 04/12/21 Attend Phys: Carmelo Eaton MD Discharge: 04/14/21 Date of : 40 Report #: [id number] reported that he had been abnormally weak and "hurting all over" prior to being discharged. Patient reported that the weakness and pain had increased enough to the point of calling EMS. Patient stated he had some diarrhea and the diarrhea had been a constant ever since having the bowel surgery. Patient denied any chest pain or n/v. Patient could not give a specific location of his pain and described it as "achy everywhere." Patient had a wound dressing over his lower abdomen covering the incision from his recent surgery, further physical exam unremarkable. Vital signs obtained and patient transported and transferred to receiving facility without change in patient condition. Initial Vitals @08:02P: 91,BP: 139/73,CO: 2,SpO2: 99, @08:08P: 89,R: 20,BP: 123/56,Pain: 4/10,GCS: 15,SpO2: 99,Revised Trauma: 12, @07:56P: 102,R: 20,BP: 130/82,Pain: 4/10,GCS: 15,Glucose: 158,SpO2: 99,Revised Trauma: 12, Assessments @07:56MENTAL:Person Oriented,Place Oriented,Event Oriented,Time Oriented,SKIN:HEENT:Head/Face: No Abnormalities,Eyes: No Abnormalities,Neck/Airway: No Abnormalities,LUNG SOUNDS:Left Lower: Other,Right Lower: OTH,ABDOMEN:Left Lower: Other,Right Lower: OTH,PELVIS//GI:No Abnormalities,EXTREMITIES:Left Arm: No Abnormalities,Right Arm: No Abnormalities,Left Leg: No Abnormalities,Right Leg: No Abnormalities,PULSE:NEURO:No Abnormalities, Impression Generalized Weakness Procedures @07:56 ALS Assessment Response: UnchangedSucceeded @08:02 3-Lead ECG Response: UnchangedSucceeded Timeline 07:50,Call Received 07:50,Dispatch Notified 07:52,Dispatched 07:53,En Route 07:55,On Scene 07:56,At Patient 07:56,ALS Assessment,Response: UnchangedSucceeded, 07:56,BP: 130/82 M,PULSE: 102,RR: 20 R,SPO2: 99 Ox,ETCO2: ,B,PAIN: 4,GCS: 15, 08:02,BP: 139/73 M,PULSE: 91,RR: R,SPO2: 99 Ox,ETCO2: ,BG: ,PAIN: ,GCS: , 08:02,3-Lead ECG,Response: UnchangedSucceeded, [facility] [address] [place] [address] EMS Patient Care Report Name: KARLENE MOSS Kim Room #: 364-P [facility] M.RRegi#: [id number] Admission: 04/12/21 Attend Phys: Carmelo Eaton MD Discharge: 04/14/21 Date of : 40 Report #: [id number] 08:05,Depart Scene 08:08,BP: 123/56 M,PULSE: 89,RR: 20 R,SPO2: 99 Ox,ETCO2: ,BG: ,PAIN: 4,GCS: 15, 08:16,At Destination 08:24,Call Closed Disclaimer v1.1 Copyright 2020 [employer] This EMS Care Summary contains data elements from the applicable legal record (which may be displayed differently). It is designed to provide pertinent information for the following purposes: continuity of care, clinical quality, and state data reporting. The complete legal record is available to ED staff and administrators of the receiving hospital in [employer]'s Patient Tracker. All data is provided "as is."
[~2021-04-12 08:19] MED LIST changes: +CALTRATE-600 W1 EACH PO; +DILTIAZEM ER180 M2 PO; +DOXYCYCLINE HYC50 MG PO; +ENOXAPARIN40 MG/0.4 SUBQ; +EZALLOR SPRINKL10 MG PO; +IMDUR 30 MG TAB30 M1 PO; +NEURONTIN100 MG PO; +PREDNISONE 10 M10 M1 PO; +PROTONIX40 M2 PO; +PULMICORT0.5 MG/2 M INH
[2021-04-12 08:23] VITALS: BP 135/58
[2021-04-12 08:55] LABS: ABSOLUTE NEUTROPHILS 4.8 thou/uL (1.4-8.2); BASOPHILS 0.8 % (0.0-2.0); EOSINOPHILS 5.3 % (0.0-3.0); HEMATOCRIT 29.9 % (42.0-52.0); HEMOGLOBIN 10.1 gm/dL (14.0-18.0); LYMPHOCYTES 28.6 % (24.0-44.0); MCH 30.5 pg (26.0-34.0); MCHC 33.6 g/dL (28.0-37.0); MCV 90.5 fL (80.0-100.0); MONOCYTES 7.2 % (1.0-8.0); PLATELET COUNT 161 thou/uL (150-400); POLYS 58.1 % (36.0-66.0); RDW 15.4 % (10.5-14.5); WBC 8.2 thou/uL (4.0-11.0)
[2021-04-12 09:23] LABS: ALBUMIN 2.8 g/dL (3.4-5.0); CALCIUM 7.3 mg/dL (8.5-10.1); TOTAL BILIRUBIN 0.4 mg/dL (0.2-1.0); TOTAL PROTEIN 6.1 g/dL (6.4-8.2)
[2021-04-12 09:30] LABS: POTASSIUM 2.7 mmol/L (3.5-5.1)
--- NOTE | 2021-04-12 12:09 | EKG ---
[place] [address] [facility] [place] [address] ELECTROCARDIOGRAM REPORT Name: KARLENE MOSS Room #: 170-9 ADM IN M.R.#: [id number] Admission: 04/12/21 Attend Phys: Carmelo Eaton MD Discharge: Date of : 40 Report #: [id number] [facility] ED Test Date: 2021-04-12 Test Time: 08:34:54 Pat Name: KARLENE MOSS Department: Room: 170 Gender: M Internal Control Manager: RENE : 1940 Requested By: Orlando Fitzpatrick Order Number: [id number] MD: Juan Andrews Measurements Intervals [place] Rate: 83 P: 65 [place]: 128 QRS: 28 QRSD: 98 T: 23 QT: 409 QTc: 481 Interpretive Statements Sinus rhythm Ventricular premature complex Abnormal R-wave progression, early transition Borderline prolonged QT interval Compared to ECG 03/25/2021 07:49:35 Ventricular premature complex(es) now present Atrial premature complex(es) no longer present Electronically Signed On 04-12-2021 12:09:07 CONSTRUCTION RECRUITER by Juan Andrews [email or web address] <ELECTRONICALLY SIGNED> By: Juan Andrews MD, [facility] 04/12/21 1209 0834 0834 Juan Andrews MD, [facility] /EPI
[2021-04-12 18:56] VITALS: BP 132/86
--- NOTE | 2021-04-12 19:04 | NUR ---
REPORT GIVEN TO RONALD ACUNA AT THIS TIME
[2021-04-12 19:20] VITALS: BP 159/53
[2021-04-12 19:49] VITALS: BP 154/73
[2021-04-12 23:47] VITALS: BP 118/70
[2021-04-13 03:52] VITALS: BP 108/66
[2021-04-13 05:23] LABS: HEMATOCRIT 29.7 % (42.0-52.0); HEMOGLOBIN 9.9 gm/dL (14.0-18.0); MCH 30.3 pg (26.0-34.0); MCHC 33.5 g/dL (28.0-37.0); MCV 90.4 fL (80.0-100.0); RBC 3.29 mil/uL (4.50-6.00); WBC 8.6 thou/uL (4.0-11.0)
[2021-04-13 05:29] LABS: CALCIUM 6.9 mg/dL (8.5-10.1); CREATININE 0.8 mg/dL (0.7-1.3); POTASSIUM 3.2 mmol/L (3.5-5.1)
--- NOTE | 2021-04-13 07:51 | NUR ---
ADMIT PT ADMITTED TO ROOM 364 FROM ED BEING ADMITTED WITH HYPOKALEMIA AND WEAKNESS. PT WAS DISCHARGED FROM [facility] TO HOME S/P COLON RESECTION 3 WEEKS AGO. VSS. UP WITH SBA. LUNGS CLEAR BUT DIMINISHED. COVID TEST NEGATIVE. HAS A MIDLINE ABDOMINAL INCISION THAT IS APPROXIMATED AND COVERED WITH DRESSING. VSS CONTINUE POC.
[2021-04-13 08:14] VITALS: BP 121/64
[2021-04-13 13:39] LABS: URINE BILIRUBIN NEGATIVE (Negative); URINE BLOOD NEGATIVE (Negative); URINE CLARITY CLEAR; URINE COLOR YELLOW; URINE GLUCOSE-RANDOM* NEGATIVE (Negative); URINE KETONES 2+ (Negative); URINE LEUKOCYTES-REFLEX NEGATIVE (Negative); URINE NITRITE-REFLEX NEGATIVE (Negative); URINE PROTEIN (DIPSTICK) TRACE (Negative); URINE SPECIFIC GRAVITY 1.025 (1.005-1.035); URINE UROBILINOGEN 0.2 E.U./dl (0.2-1.0)
[2021-04-13 16:18] VITALS: BP 114/58
--- NOTE | 2021-04-13 16:46 | NUR ---
RN ASSUMED PT'S CARE AT 0700AM, PT IS A&OX4, PT IS ON ROOM AIR, PT'S VS ARE STABLE AT DAY SHIFT, PT 'S HYPOKALEMAIA AND WEAKNESS HAVE IMPROVED,PT HAS POTASSIUM AND MAGENESIUM REPLACEMENT TODAY, PT DENIES PAIN AND SOB BY THIS TIME.
[2021-04-13 19:21] VITALS: BP 115/61
[2021-04-14 03:07] VITALS: BP 120/54
[2021-04-14 04:54] LABS: CALCIUM 7.1 mg/dL (8.5-10.1); CREATININE 0.7 mg/dL (0.7-1.3); MAGNESIUM 2.1 mg/dL (1.8-2.4); POTASSIUM 4.1 mmol/L (3.5-5.1)
[2021-04-14 06:00] VITALS: BP 119/64
--- NOTE | 2021-04-14 07:25 | NUR ---
patient aox4 makes needs known. dressing on mid abd is c/d/i this shift. patient encouraged fluids.fall precauyion in place. patient in bed asleep at this time breaathing regular and unlaboured.
--- NOTE | 2021-04-14 09:43 | NUR ---
WOUND CONSULT; THE ABDOMENAL AREA IS A 99.9 HEALED ABDOMENAL INSCISION. THERE IS A .3 X .3 AREA THAT OPENED WHEN I ASSESSED WITH A COTTON TIPPED APPLICATIOR. THIS OPENING WAS VERY FRAGILE. WHEN OPENED IT DRAINED APPROX. 20 CC OF SEROSANGINOUS DISCHARGE. THERE SEEMED TO BE A POCKET UNDER THE SKIN. NON ODOROUS. RECOMMENDATION; -PACK WITH 1/4 INCH PLAIN GAUZE, COVERED WITH A BORDERED FOAM. CHANGE M/W/F PRN. DISCUSED WITH RN
[2021-04-14] MEDS ORDERED: CHOLESTYRAMINE L4 GM PO (12:03)
[2021-04-14 12:07] VITALS: BP 119/64
--- NOTE | 2021-04-14 13:43 | NUR ---
INITIAL ASSESSMENT/DISCHARGE NOTE: AWILDA reviewed chart and spoke with nursing and attending physician. Pt was admitted from home due to hypokalemia/weakness. Pt is medlcally stable to discharge home today with services. AWILDA spoke with pt via phone. Introduced role of SW. Pt is alert/orientated x 4. Pt reports he lives at home with his . Prior to admission, pt was using a roller walker. Pt also has a w/c to use for long distances. No stairs to navigate at home. Pt was recently at [facility] and was discharged home on 04/11. Pt states he is on service with [facility] and would like to resume . Pt's PCP is Dr. Shelley Kohler. Pt reports that his son will be picking him up around 1430 this afternoon. AWILDA faxed clinical info and discharge ppwk to [facility]. Spoke with Lupe in intake who confirms info was received and they will start pt on service in 1-2 days. Contact info for [facility] placed in pt's discharge summary. AWILDA updated pt's nurse. No additional SW needs identified at this time. AWILDA is available to assist should needs arise.
--- NOTE | 2021-04-14 15:21 | NUR ---
RN ASSUMED PT'S CARE AT 0700-1500PM, PT IS A&OX4, PT IS ON ROOM AIR , PT'S VS ARE STABLE , PT'S LAB RESULTS AND WEAKNESS HAVE IMPROVED, RN RECEIVED ORDER TO DC PT TO HOME WITH HOME HEALTH, PT AND PT'S SON UNDERSTAND DC TEACHING WELL , PT'S SON NURSE CONSULTANT PT TO HOME AT 1500PM.
== END 2021-04-14 15:02 | disposition home or self-care (01) ==
LOC: ER 08:19 → EROBS 11:02 → ER 11:02 → EROBS 14:54 → 3W 19:21
PROVIDERS: Emergency Medicine; ADMIT Hospitalist; ATTEND Hospitalist
DX: R53.1 Weakness (principal); Z20.822 Contact with and (suspected) exposure to COVID-19; E87.6 Hypokalemia; E83.42 Hypomagnesemia; I48.20 Chronic atrial fibrillation, unspecified; J44.9 Chronic obstructive pulmonary disease, unspecified; I25.10 Atherosclerotic heart disease of native coronary artery without angina pectoris; N40.0 Benign prostatic hyperplasia without lower urinary tract symptoms; K21.9 Gastro-esophageal reflux disease without esophagitis; Z79.899 Other long term (current) drug therapy

== ENCOUNTER → 2021-04-17 | Outpatient (CLI) | payer OTHER ==
[~2021-04-17] MED LIST changes: +CHOLESTYRAMINE L4 GM PO
== END ==
LOC: SJCVC 10:06
PROVIDERS: ATTEND Internal Medicine Cardiovascular Disease
DX: S31.109A Unspecified open wound of abdominal wall, unspecified quadrant without penetration into peritoneal cavity, initial encounter (principal); R94.31 Abnormal electrocardiogram [ECG] [EKG]; I21.9 Acute myocardial infarction, unspecified; I10 Essential (primary) hypertension; I25.10 Atherosclerotic heart disease of native coronary artery without angina pectoris; E78.00 Pure hypercholesterolemia, unspecified; R42 Dizziness and giddiness; J44.9 Chronic obstructive pulmonary disease, unspecified; I42.9 Cardiomyopathy, unspecified; K21.9 Gastro-esophageal reflux disease without esophagitis; Z88.0 Allergy status to penicillin; Z88.5 Allergy status to narcotic agent; Z79.899 Other long term (current) drug therapy; Z95.1 Presence of aortocoronary bypass graft; Z87.891 Personal history of nicotine dependence; X58.XXXA Exposure to other specified factors, initial encounter; Y93.89 Activity, other specified; Y92.89 Other specified places as the place of occurrence of the external cause; Y99.8 Other external cause status

== ENCOUNTER → 2021-04-18 | Outpatient (CLI) | payer OTHER | LOC: HYPER 09:18 | PROVIDERS: ATTEND Emergency Medicine Emergency Medical Services | DX: T81.31XA Disruption of external operation (surgical) wound, not elsewhere classified, initial encounter (principal); L98.492 Non-pressure chronic ulcer of skin of other sites with fat layer exposed; S31.109A Unspecified open wound of abdominal wall, unspecified quadrant without penetration into peritoneal cavity, initial encounter; J44.9 Chronic obstructive pulmonary disease, unspecified; N40.0 Benign prostatic hyperplasia without lower urinary tract symptoms; I25.10 Atherosclerotic heart disease of native coronary artery without angina pectoris; E78.00 Pure hypercholesterolemia, unspecified; I10 Essential (primary) hypertension; M85.80 Other specified disorders of bone density and structure, unspecified site; M81.0 Age-related osteoporosis without current pathological fracture; R53.1 Weakness; Z87.891 Personal history of nicotine dependence; Z90.49 Acquired absence of other specified parts of digestive tract; Z95.1 Presence of aortocoronary bypass graft; Z98.890 Other specified postprocedural states; Z79.899 Other long term (current) drug therapy; Y83.8 Other surgical procedures as the cause of abnormal reaction of the patient, or of later complication, without mention of misadventure at the time of the procedure; X58.XXXA Exposure to other specified factors, initial encounter; Y93.89 Activity, other specified; Y92.238 Other place in hospital as the place of occurrence of the external cause; Y99.8 Other external cause status ==

== ENCOUNTER → 2021-04-24 | Outpatient (CLI) | payer OTHER | LOC: HYPER 10:51 | PROVIDERS: ATTEND Emergency Medicine Emergency Medical Services | DX: T81.31XD Disruption of external operation (surgical) wound, not elsewhere classified, subsequent encounter (principal); S31.109D Unspecified open wound of abdominal wall, unspecified quadrant without penetration into peritoneal cavity, subsequent encounter; L98.492 Non-pressure chronic ulcer of skin of other sites with fat layer exposed; R53.1 Weakness; J44.9 Chronic obstructive pulmonary disease, unspecified; N40.0 Benign prostatic hyperplasia without lower urinary tract symptoms; I25.10 Atherosclerotic heart disease of native coronary artery without angina pectoris; E78.00 Pure hypercholesterolemia, unspecified; I10 Essential (primary) hypertension; M85.80 Other specified disorders of bone density and structure, unspecified site; M81.0 Age-related osteoporosis without current pathological fracture; Z95.1 Presence of aortocoronary bypass graft; Z87.891 Personal history of nicotine dependence; Z79.899 Other long term (current) drug therapy; Y83.8 Other surgical procedures as the cause of abnormal reaction of the patient, or of later complication, without mention of misadventure at the time of the procedure; X58.XXXD Exposure to other specified factors, subsequent encounter ==

== ENCOUNTER → 2021-04-28 | Outpatient (CLI) | payer OTHER | LOC: HYPER 09:54 | PROVIDERS: ATTEND Emergency Medicine | DX: T81.31XD Disruption of external operation (surgical) wound, not elsewhere classified, subsequent encounter (principal); S31.109D Unspecified open wound of abdominal wall, unspecified quadrant without penetration into peritoneal cavity, subsequent encounter; L98.492 Non-pressure chronic ulcer of skin of other sites with fat layer exposed; R53.1 Weakness; I25.10 Atherosclerotic heart disease of native coronary artery without angina pectoris; I10 Essential (primary) hypertension; J44.9 Chronic obstructive pulmonary disease, unspecified; N40.0 Benign prostatic hyperplasia without lower urinary tract symptoms; E78.00 Pure hypercholesterolemia, unspecified; M85.80 Other specified disorders of bone density and structure, unspecified site; M81.0 Age-related osteoporosis without current pathological fracture; Z95.1 Presence of aortocoronary bypass graft; Z87.891 Personal history of nicotine dependence; Z79.899 Other long term (current) drug therapy; Y83.8 Other surgical procedures as the cause of abnormal reaction of the patient, or of later complication, without mention of misadventure at the time of the procedure; X58.XXXD Exposure to other specified factors, subsequent encounter ==

== ENCOUNTER → 2021-05-06 | Outpatient (CLI) | payer OTHER | LOC: SJCVC 10:06 | PROVIDERS: ATTEND Internal Medicine Cardiovascular Disease | DX: S31.109A Unspecified open wound of abdominal wall, unspecified quadrant without penetration into peritoneal cavity, initial encounter (principal); R94.31 Abnormal electrocardiogram [ECG] [EKG]; R00.0 Tachycardia, unspecified; R42 Dizziness and giddiness; I25.10 Atherosclerotic heart disease of native coronary artery without angina pectoris; E78.00 Pure hypercholesterolemia, unspecified; I42.9 Cardiomyopathy, unspecified; J44.9 Chronic obstructive pulmonary disease, unspecified; K21.9 Gastro-esophageal reflux disease without esophagitis; Z95.1 Presence of aortocoronary bypass graft; Z88.5 Allergy status to narcotic agent; Z88.0 Allergy status to penicillin; Z88.8 Allergy status to other drugs, medicaments and biological substances; Z79.899 Other long term (current) drug therapy; Z87.891 Personal history of nicotine dependence ==

== ENCOUNTER → 2021-05-19 | Outpatient (CLI) | payer OTHER | LOC: HYPER 10:43 | PROVIDERS: ATTEND Emergency Medicine | DX: T81.31XD Disruption of external operation (surgical) wound, not elsewhere classified, subsequent encounter (principal); S31.109D Unspecified open wound of abdominal wall, unspecified quadrant without penetration into peritoneal cavity, subsequent encounter; L98.492 Non-pressure chronic ulcer of skin of other sites with fat layer exposed; R53.1 Weakness; I25.10 Atherosclerotic heart disease of native coronary artery without angina pectoris; I10 Essential (primary) hypertension; J44.9 Chronic obstructive pulmonary disease, unspecified; N40.0 Benign prostatic hyperplasia without lower urinary tract symptoms; E78.00 Pure hypercholesterolemia, unspecified; M85.80 Other specified disorders of bone density and structure, unspecified site; M81.0 Age-related osteoporosis without current pathological fracture; Z95.1 Presence of aortocoronary bypass graft; Z87.891 Personal history of nicotine dependence; X58.XXXD Exposure to other specified factors, subsequent encounter; Y83.8 Other surgical procedures as the cause of abnormal reaction of the patient, or of later complication, without mention of misadventure at the time of the procedure ==